=== PATIENT | female | born 1935 | race Caucasian/White ===

== ENCOUNTER 2020-08-05 13:31 | Inpatient (IN) ==
[2020-08-05] MEDS ORDERED: ONDANSETRON INJ 2 MG/ML 2 ML VIAL IV STA (13:55)
[2020-08-05] MEDS ORDERED: SODIUM CHLORIDE 0.9% 1000ML 1,000 ML IV ONE (13:55)
--- NOTE | 2020-08-05 14:08 | Emergency Department Note ---
Impression & Plan Abdominal pain, Leukocytosis, Liver mass, Acute hypokalemia ED Provider Note NAME: GAY PEÑA AGE: 85 SEX: F : 1935 ARRIVES VIA: Walk-In INFORMANT: Patient ED PROVIDER(S): Blanco Napoles DO CHIEF COMPLAINT: abdominal pain N/V/D HPI: Patient is an 85-year-old female who presents to the ER for abdominal pain in combination with nausea, vomiting and diarrhea. Symptoms started about a month ago. She gets abdominal cramping followed by diarrhea. She has been going anywhere from 3-7 times a day. She notes that recently over the past 24 hours diarrhea has picked back up. She has not been stool tested. She denies any recent antibiotics. She denies any chest pain or shortness of breath. No cough or runny nose. No loss of taste or smell. She admits to vomiting since last night. She is been vomiting clear liquids has she could not keep anything down. Denies any dysuria urgency or frequency. ROS: See above HPI for pertinent positives & negatives. A total of 10 systems reviewed and were otherwise negative. PAST MEDICAL HISTORY:See Below PAST SURGICAL HISTORY:See Below FAMILY HISTORY:See Below SOCIAL HISTORY:See Below HOME MEDICATIONS:See Below ALLERGIES:See Below VITALS:See Below PHYSICAL EXAMINATION: GENERAL: Sitting up in bed, alert, well appearing, well nourished, no distress, non-toxic EYE EXAM: normal conjunctiva. OROPHARYNX: no exudate, no erythema, lips, buccal mucosa, and tongue normal and mucous membranes are moist NECK: supple, no nuchal rigidity, no adenopathy, non-tender LUNGS: Clear to auscultation. Normal chest wall mechanics HEART: no murmurs, S1 normal and S2 normal ABDOMEN: abdomen soft, non-tender, normo-active bowel sounds, no masses, no rebound or guarding. UPPER EXTREMITIES: upper extremities are grossly normal. LOWER EXTREMITIES: No pitting edema. NEURO EXAM: Normal sensorium, cranial nerves II-XII grossly intact, normal speech, no gross weakness of arms, no gross weakness of legs. MEDICAL DECISION MAKING: Patient is an 85-year-old female who presents the ER for abdominal pain associated with diarrhea which been present for the month associate with nausea. IV was established blood was obtained. Labs showed leukocytosis 16,000. No significant anemia. BMP with mild hypokalemia. LFTs bilirubin was unremarkable. Lipase is unremarkable as well. UA was clean. C. difficile was negative. Covid pending. CT abdomen pelvis showed distended colon with liver masses and inflammation of the colon. Patient was given IV Cipro and Flagyl. Updated bedside. She is given IV fluids. IV Zofran discussed with hospitalist for further work-up. Triage Nursing notes reviewed. Limited review of prior medical records performed Vital Signs: reviewed and remarkable for HTN Differential diagnosis: Differential diagnoses includes but is not limited to gastritis, peptic ulcer disease, GERD, gallbladder disease, pancreatitis, small bowel obstruction, acute coronary syndrome, pericarditis, ischemic bowel, irritable bowel disease, irritable bowel syndrome, appendicitis, diverticulitis, malignancy, hernia, ur inary tract infection, torsion, /ectopic (if female), perforation, trauma, infectious. ER treatment provided: See below Diagnostics interpreted by me: Cardiac Monitoring: An order was placed for continuous cardiac monitoring. The monitor shows a rate of 70 with sinus rhythm. Laboratory studies: As stated above and show below. Imaging studies: See below Consultation(s): Discussed with Dr. Odell for further evaluation Procedures: none Critical Care: None Past Med/Surg History Medical History (Updated 08/05/20 @ 17:08 by Blanco Napoles DO) Glaucoma No pertinent past medical history Surgical History (Updated 03/20/19 @ 08:37 by Nel Wallace RN) S/P cholecystectomy Social History (Updated 03/20/19 @ 08:39 by Nel Wallace RN) Smoking Status: Never smoker Hx Alcohol Use: No Hx Substance Use: No Preferred Language: Tongan Communication Ability: Effective Visual Impairment: Limited Hearing Ability: Normal Beliefs That Will Affect Care: None marital status: Current Living Situation: Alone current occupational status: retired Feels Safe at Home: Yes Allergies Allergies Allergy/AdvReac Type Severity Reaction Status Date / Time amoxicillin Allergy Unknown Verified 08/05/20 15:07 brimonidine Allergy Unknown Verified 08/05/20 15:07 sulfamethizole Allergy Unknown Verified 08/05/20 15:07 Home Meds Home Medications Medication Instructions Recorded Confirmed bimatoprost [Lumigan] 1 drp OPR DAILY 03/14/19 08/05/20 difluprednate [Durezol] 1 drp OPR 3XWK 03/14/19 08/05/20 dorzolamide 1 drp OPL 3XWK 03/14/19 08/05/20 netarsudil [Rhopressa] 1 drp OPR PM 03/14/19 08/05/20 timolol maleate 1 drp OPR DAILY 03/14/19 08/05/20 cholecalciferol (vitamin D3) 50 mcg PO DAILY 08/05/20 08/05/20 [Vitamin D3] dextran 70-hypromellose 1 drp OPHTHALMIC (EYE) DIRECTED 08/05/20 08/05/20 [Artificial Tears (PF)] PRN Results & Data (ED) Vital Signs Vital Signs - 24 hr 08/05/20 13:34 08/05/20 14:19 08/05/20 14:30 Temperature 36.1 C L Temperature Source Temporal Artery Scan Pulse Rate 72 68 71 Pulse Rate from SpO2 Sensor 71 Pulse Rhythm Regular Regular Pulse Strength Normal Respiratory Rate 16 16 20 Respiratory Effort / Characteristics Non-Labored Respiratory Depth Normal Respiratory Pattern Regular Blood Pressure 182/90 H 162/70 H Blood Pressure Mean 120 100 Blood Pressure Position Sitting Pulse Oximetry 93 95 96 Oxygen Delivery Method Room Air Room Air Sepsis Recent Fever Within 48 Hours No Sepsis New/Unexplained Change in Mental Status N/A Sepsis Action Taken by Nursing No Action Required 08/05/20 15:00 08/05/20 16:00 08/05/20 16:30 Temperature Temperature Source Pulse Rate 75 69 72 Pulse Rate from SpO2 Sensor 75 69 71 Pulse Rhythm Pulse Strength Respiratory Rate 19 23 22 Respiratory Effort / Characteristics Respiratory Depth Respiratory Pattern Blood Pressure 154/70 H 168/79 H 146/79 H Blood Pressure Mean 98 108 101 Blood Pressure Position Pulse Oximetry 94 96 95 Oxygen Delivery Method Sepsis Recent Fever Within 48 Hours Sepsis New/Unexplained Change in Mental Status Sepsis Action Taken by Nursing 08/05/20 17:00 Temperature Temperature Source Pulse Rate 69 Pulse Rate from SpO2 Sensor 69 Pulse Rhythm Pulse Strength Respiratory Rate 19 Respiratory Effort / Characteristics Respiratory Depth Respiratory Pattern Blood Pressure 161/72 H Blood Pressure Mean 101 Blood Pressure Position Pulse Oximetry 95 Oxygen Delivery Method Sepsis Recent Fever Within 48 Hours Sepsis New/Unexplained Change in Mental Status Sepsis Action Taken by Nursing Laboratory Data Result diagrams: 08/05/20 14:00 08/05/20 14:00 Lab Results 02/16/21 02/16/21 02/16/21 Range/Units 14:00 14:00 14:00 WBC 16.17 H (4.8-10.8) K/uL RBC 4.47 (4.2-5.4) M/uL Hgb 14.2 (12.0-16.0) g/dL Hct 41.1 (37-47) % MCV 91.9 (80-100) fL MCH 31.8 (25-34) pg MCHC 34.5 (32-36) g/dL RDW Std Deviation 45.1 (36.4-46.3) fL RDW Coeff of Shane 13.4 (11.5-14.5) % Plt Count 524 H (130-400) K/uL MPV 9.1 (7.4-10.4) fL Immature Gran % (Auto) 0.2 % Neut % (Auto) 83.2 % Lymph % (Auto) 9.1 % Anderson % (Auto) 7.4 % Eos % (Auto) 0.0 % Baso % (Auto) 0.1 % Neut # (Auto) 13.45 H (1.4-6.5) K/uL Lymph # (Auto) 1.47 (1.2-3.4) K/uL Anderson # (Auto) 1.19 H (0.11-0.59) K/uL Eos # (Auto) 0.00 (0-0.5) K/uL Baso # (Auto) 0.02 (0-0.2) K/uL Immature Gran # (Auto) 0.04 H (0.00-0.02) K/uL Sodium 141 (136-145) mmol/L Potassium 3.1 L (3.5-5.1) mmol/L Chloride 105 (98-107) mmol/L Carbon Dioxide 24 (21-32) mmol/L Anion Gap 12.0 H (3-11) BUN 13 (7-18) mg/dl Creatinine 0.78 (0.6-1.2) mg/dl Est Cr Clr Drug Dosing 47.9 ml/min Est GFR ( Amer) 81.5 Est GFR (Non-Af Amer) 70.3 BUN/Creatinine Ratio 17.2 (10-20) Glucose 137 H (70-99) mg/dl Calcium 9.4 (8.5-10.1) mg/dl Total Bilirubin 0.6 (0.2-1) mg/dl AST 22 (15-37) U/L ALT 8 L (12-78) U/L Alkaline Phosphatase 140 H (45-117) U/L Total Protein 7.6 (6.4-8.2) gm/dl Albumin 3.2 L (3.4-5.0) gm/dl Globulin 4.4 H (2.5-4.0) gm/dl Albumin/Globulin Ratio 0.7 L (0.9-2) Lipase 63 L (73-393) U/L Urine Color Dark Yellow Urine Appearance Cloudy A (Clear) Urine pH 5.0 (4.5-7.5) Ur Specific Earp 1.027 (1.000-1.030) Urine Protein 1+ H (Negative) Urine Glucose (UA) Negative (Negative) Urine Ketones 1+ H (Negative) Urine Blood Negative (Negative) Urine Nitrite Negative (Negative) Urine Bilirubin 1+ H (Negative) Urine Urobilinogen Negative (Negative) Ur Leukocyte Esterase Negative (Negative) Urine WBC (Auto) 5-10 H (0-5) /hpf Urine RBC (Auto) 0-4 (0-4) /hpf U Hyaline Cast (Auto) 10-30 H (0-5) /lpf U Epithel Cells (Auto) >30 H (0-5) /lpf Urine Bacteria (Auto) Negative (Negative) Stl C. diff Tox B Gene (Neg) COVID-19 Eval Order 08/05/20 08/05/20 Range/Units 15:55 16:55 WBC (4.8-10.8) K/uL RBC (4.2-5.4) M/uL Hgb (12.0-16.0) g/dL Hct (37-47) % MCV (80-100) fL MCH (25-34) pg MCHC (32-36) g/dL RDW Std Deviation (36.4-46.3) fL RDW Coeff of Shane (11.5-14.5) % Plt Count (130-400) K/uL MPV (7.4-10.4) fL Immature Gran % (Auto) % Neut % (Auto) % Lymph % (Auto) % Anderson % (Auto) % Eos % (Auto) % Baso % (Auto) % Neut # (Auto) (1.4-6.5) K/uL Lymph # (Auto) (1.2-3.4) K/uL Anderson # (Auto) (0.11-0.59) K/uL Eos # (Auto) (0-0.5) K/uL Baso # (Auto) (0-0.2) K/uL Immature Gran # (Auto) (0.00-0.02) K/uL Sodium (136-145) mmol/L Potassium (3.5-5.1) mmol/L Chloride (98-107) mmol/L Carbon Dioxide (21-32) mmol/L Anion Gap (3-11) BUN (7-18) mg/dl Creatinine (0.6-1.2) mg/dl Est Cr Clr Drug Dosing ml/min Est GFR ( Amer) Est GFR (Non-Af Amer) BUN/Creatinine Ratio (10-20) Glucose (70-99) mg/dl Calcium (8.5-10.1) mg/dl Total Bilirubin (0.2-1) mg/dl AST (15-37) U/L ALT (12-78) U/L Alkaline Phosphatase (45-117) U/L Total Protein (6.4-8.2) gm/dl Albumin (3.4-5.0) gm/dl Globulin (2.5-4.0) gm/dl Albumin/Globulin Ratio (0.9-2) Lipase (73-393) U/L Urine Color Urine Appearance (Clear) Urine pH (4.5-7.5) Ur Specific Earp (1.000-1.030) Urine Protein (Negative) Urine Glucose (UA) (Negative) Urine Ketones (Negative) Urine Blood (Negative) Urine Nitrite (Negative) Urine Bilirubin (Negative) Urine Urobilinogen (Negative) Ur Leukocyte Esterase (Negative) Urine WBC (Auto) (0-5) /hpf Urine RBC (Auto) (0-4) /hpf U Hyaline Cast (Auto) (0-5) /lpf U Epithel Cells (Auto) (0-5) /lpf Urine Bacteria (Auto) (Negative) Stl C. diff Tox B Gene Negative Cdiff Gene (Neg) COVID-19 Eval [facility] Administered Medications Ciprofloxacin (Cipro / D5w) 400 mg in 200 mls @ 100 mls/hr IV NOW STA; Protocol Stop: 08/05/20 18:03 Last Admin: 08/05/20 16:18 Dose: 100 mls/hr Documented by: [id number] Discontinued Medications Sodium Chloride (Nss 1000ml) 1,000 mls @ 999 mls/hr IV .Q1H1M ONE Stop: 08/05/20 14:55 Last Infusion: 08/05/20 15:15 Dose: 0 mls/hr Documented by: [id number] Admin: 08/05/20 14:17 Dose: 999 mls/hr Documented by: [id number] Metronidazole (Flagyl) 500 mg in 100 mls @ 100 mls/hr IV NOW STA Stop: 08/05/20 17:03 Last Admin: 08/05/20 16:18 Dose: 100 mls/hr Documented by: [id number] Ioversol (Ioversol 100ml) 94 ml IV ONCE ONE Stop: 08/05/20 14:41 Last Admin: 08/05/20 14:44 Dose: 94 ml Documented by: [id number] Ondansetron HCl (Ondansetron Inj 2 Mg/Ml 2 Ml Vial) 4 mg IV NOW STA Stop: 08/05/20 13:56 Last Admin: 08/05/20 14:17 Dose: 4 mg Documented by: [id number] Discharge Plan Visit Data Chief Complaint: Diarrhea Stated Complaint: possible bowl obstruction ED Provider: Blanco Napoles Discharge Problem: Abdominal pain, Leukocytosis, Liver mass, Acute hypokalemia Forms Stand Alone Forms: My [facility] Prescriptions Prescriptions: No Action timolol maleate 0.5 % drops 1 drp OPR DAILY RF: 0 dorzolamide 2 % drops 1 drp OPL 3XWK RF: 0 Durezol 0.05 % drops 1 drp OPR 3XWK RF: 0 Lumigan 0.01 % drops 1 drp OPR DAILY RF: 0 Rhopressa 0.02 % Drops 1 drp OPR PM RF: 0 cholecalciferol (vitamin D3) [Vitamin D3] 50 mcg (2,000 unit) Capsule 50 mcg PO DAILY RF: 0 Artificial Tears (PF) Dropperette 1 drp OPHTHALMIC (EYE) DIRECTED PRN (Reason: Dry Eyes) RF: 0 Discharge Problem: Abdominal pain Qualifiers: Abdominal location: unspecified location Qualified Code(s): R10.9 - Unspecified abdominal pain Leukocytosis Qualifiers: Leukocytosis type: unspecified Qualified Code(s): D72.829 - Elevated white blood cell count, unspecified
[2020-08-05 14:13] LABS: Basophils # (auto) 0.02 K/uL (0-0.2); Basophils % (auto) 0.1 %; Hematocrit (blood only) 41.1 % (37-47); Hemoglobin 14.2 g/dL (12.0-16.0); Immature Granulocytes # (auto) 0.04 K/uL (0.00-0.02); Immature Granulocytes % (auto) 0.2 %; Lymphocytes # (auto) 1.47 K/uL (1.2-3.4); Lymphocytes % (auto) 9.1 %; Mean Corpuscular Hemoglobin 31.8 pg (25-34); Mean Corpuscular Hgb Conc 34.5 g/dL (32-36); Mean Corpuscular Volume 91.9 fL (80-100); Mean Platelet Volume 9.1 fL (7.4-10.4); Monocytes # (auto) 1.19 K/uL (0.11-0.59); Monocytes % (auto) 7.4 %; Neutrophils # (auto) 13.45 K/uL (1.4-6.5); Neutrophils % (auto) 83.2 %; Platelet Count 524 K/uL (130-400); RDW Coefficient of Variation 13.4 % (11.5-14.5); RDW Standard Deviation 45.1 fL (36.4-46.3); Red Blood Count 4.47 M/uL (4.2-5.4); White Blood Count 16.17 K/uL (4.8-10.8)
[2020-08-05 14:27] LABS: Appearance Urine Cloudy (Clear); Bacteria Urine Automated Negative (Negative); Blood Urine Negative (Negative); Color Urine Dark Yellow; Epithelial Cell Urine Auto >30 /lpf (0-5); Glucose Urine UA Negative (Negative); Ketones Urine 1+ (Negative); Leukocyte Esterase Urine Negative (Negative); Nitrite Urine Negative (Negative); Protein Urine 1+ (Negative); RBC Urine Automated 0-4 /hpf (0-4); Specific Gravity Urine 1.027 (1.000-1.030); Urobilinogen Urine Negative (Negative)
[2020-08-05 14:31] LABS: Albumin Level 3.2 gm/dl (3.4-5.0); BUN Creatinine Ratio 17.2 (10-20); Calcium 9.4 mg/dl (8.5-10.1); Creatinine Clr Calc Pharmacy 47.9 ml/min; Est GFR (African American) 81.5; Est GFR (Non-African American) 70.3; Potassium 3.1 mmol/L (3.5-5.1)
[2020-08-05 14:34] LABS: Albumin Globulin Ratio 0.7 (0.9-2); Bilirubin,Total 0.6 mg/dl (0.2-1); Globulin 4.4 gm/dl (2.5-4.0); Total Protein 7.6 gm/dl (6.4-8.2)
[2020-08-05] MEDS ORDERED: OPTIRAY 320 100ml IV ONE (14:40)
[2020-08-05 14:46] LABS: Bilirubin Urine 1+ (Negative)
--- NOTE | 2020-08-05 15:08 | CT Scan Report ---
CT abd pelvis IV con only CLINICAL HISTORY: abd pain COMPARISON STUDY: None. TECHNIQUE: The patient was scanned in a dynamic helical fashion during intravenous administration of 94 cc of Optiray 320. A dose lowering technique was utilized adhering to the principles of ALARA. CT DOSE: 382.38 mGy.cm FINDINGS: Lower chest: There is respiratory motion artifact. There are no pleural effusions. There is no basila r consolidation. There is a hiatal hernia Liver: There are greater than 10 space-occupying hepatic masses involving both the left and right hep atic lobes. The largest measures 33 mm. The findings are viewed as suspicious for hepatic metastasis. Gallbladder: Surgically absent Spleen: Not visualized and potentially surgically absent Pancreas: a an equivocal 1 cm hypodense lesion within the pancreatic tail likely represents partial v olume averaging. The study is degraded by motion artifact. Adrenal glands: There is a 12 mm left adrenal gland nodule Kidneys: There are no solid renal masses. There is no hydronephrosis. Bowel: There is colonic dilatation down to the level of the sigmoid colon. There is sigmoid wall thic kening. There is infiltration of the perisigmoid fat. There is a loss of fat plane between the sigmoi d colon and adjacent small bowel. Endoscopic correlation should be considered, particularly given the suspicion over hepatic metastasis. Peritoneum: There is trace free pelvic fluid. There is no free intraperitoneal air. Vasculature: The abdominal aorta is normal in course and caliber. Adenopathy: None. Pelvic viscera: There are bilateral adnexal cyst likely ovarian. There is a 4 cm cystic lesion on the right and 2.2 cm cystic lesion on the left. The endometrium appears thickened measuring 15 mm. Skeletal structures: There is old T8 compression fracture. No destructive skeletal lesions are visual ized IMPRESSION: 1. There are greater than 10 space-occupying hepatic masses, a finding viewed as highly suspicious fo r metastatic disease 2. Distended colon down to the level of the sigmoid. 3. Sigmoid diverticulosis and sigmoid wall thickening. 4. Loss of the normal fat plane between small bowel loops the sigmoid colon 5. Differential diagnostic considerations for the sigmoid colonic thickening include neoplasm versus diverticular related wall thickening. Endoscopic correlation is recommended in follow-up given the iglesias spicion of multiple hepatic metastasis 6. Bilateral cystic ovarian lesions 7. Thickened endometrium ACT 112: Positive. There are findings on this exam that require communication between the performing entity and the patient following Patient Test Result Information Act ([place] Act 112) guidelines. Electronically signed by: Rich Liu M.D. 08/05/2020 3:07 PM
[2020-08-05] MEDS ORDERED: metroNIDAZOLE 500 MG/100 ML BAG IV STA (16:04)
[2020-08-05] MEDS ORDERED: CIPROFLOXACIN / D5W 400 MG/200 ML BAG IV STA (16:04)
--- NOTE | 2020-08-05 16:37 | History & Physical Report ---
Date of Service August 05, 2020 Assessment & Plan (1) Abdominal pain: Suspected partial bowel obstruction N.p.o., IV fluids Findings concerning for metastatic colon cancer discussed with the patient and her daughter at bedside. CEA with a.m. labs. Continue ciprofloxacin and metronidazole for possible bacterial infection. Consult gastroenterology (2) Liver mass: Concerning for metastatic spread of colon cancer. (3) Thickened endometrium: Follow-up with gynecology as an outpatient. (4) Ovarian cyst, bilateral: Follow-up with gynecology as an outpatient. Ca1 to 5 added to a.m. labs. (5) Leukocytosis: Concerning for infective etiology as above. Continue ciprofloxacin and metronidazole. (6) Glaucoma: Continue her routine eyedrops. (7) DVT prophylaxis: SCDs pending GI review Admission and Anticipated Discharge Date Admission Date: August 05, 2020 History of Present Illness Chief Complaint: Abdominal pain Primary Care Provider: Maximo Madden Taylor Pettit is an 85 year old female who presents to the ER with abdominal pain, nausea, vomiting and diarrhea. Due to being very hard of hearing and without her hearing aids she asks that the majority of her history is taken from her daughter at bedside. She reports ongoing symptoms with diarrhea and intermittent mild abdominal pain for the last month. She has been reluctant to see any healthcare professionals however her daughter convinced her to see her PCP yesterday and arranged to have lab work done which was planned for tomorrow however her symptoms progressed last night to vomiting overnight with shaking episodes yesterday but no specific fevers. After telling her daughter about the vomiting today, her daughter called her PCP again and they recommended coming to the ER to rule out bowel obstruction. She denies any melena or bright red blood in stool. Diarrhea loose but not watery. No history of colonoscopy. In the ER CT A/P with IV contrast was concerning for distended colon down to her sigmoid with sigmoid wall thickening. In addition she has concerning findings for metastatic disease with 10 space-occupying liver masses. She denies ever having a screening colonoscopy. No family history of colon cancer. History of breast cancer with her sister. Due to elevated WBC and sigmoid wall thickening she was started on ciprofloxacin and metronidazole to cover for possible diverticulitis vs. translocation infection. She was referred to medicine for admission and ongoing management of partial colonic obstruction. Allergies Allergy/AdvReac Type Severity Reaction Status Date / Time amoxicillin Allergy Unknown Verified 08/05/20 15:07 brimonidine Allergy Unknown Verified 08/05/20 15:07 sulfamethizole Allergy Unknown Verified 08/05/20 15:07 Home Medications Medication Instructions Recorded Confirmed Type bimatoprost [Lumigan] 1 drp OPR DAILY 03/14/19 08/05/20 History difluprednate [Durezol] 1 drp OPR 3XWK 03/14/19 08/05/20 History dorzolamide 1 drp OPL 3XWK 03/14/19 08/05/20 History netarsudil [Rhopressa] 1 drp OPR PM 03/14/19 08/05/20 History timolol maleate 1 drp OPR DAILY 03/14/19 08/05/20 History cholecalciferol (vitamin D3) 50 mcg PO DAILY 08/05/20 08/05/20 History [Vitamin D3] dextran 70-hypromellose 1 drp OPHTHALMIC (EYE) DIRECTED 08/05/20 08/05/20 History [Artificial Tears (PF)] PRN Past Med/Surg History Medical History (Updated 08/06/20 @ 10:52 by Fausto Odell MD) Glaucoma No pertinent past medical history Surgical History (Updated 03/20/19 @ 08:37 by Nel Wallace RN) S/P cholecystectomy Social History (Updated 03/20/19 @ 08:39 by Nel Wallace RN) Smoking Status: Never smoker Hx Alcohol Use: No Hx Substance Use: No Preferred Language: Iraqi Communication Ability: Effective Visual Impairment: Limited Hearing Ability: Normal 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 Beliefs That Will Affect Care: None marital status: Current Living Situation: Family current occupational status: retired Other Information That Helps Us Care for You: No Feels Safe at Home: Yes Safety Concerns: Feels Safe At This Time Assistive Devices: Denture - Upper, Glasses and Hearing Aid - Bilateral Review of Systems Review of Systems: All systems reviewed & are unremarkable except as noted in HPI & below Constitutional: + chills and + fatigue Weight loss Physical Exam Constitutional: well developed, + thin and + frail appearing; no acute distress Eyes: + anicteric sclerae; normal pupil size ENMT: external ear and nose normal, oropharynx normal Neck: trachea midline Respiratory: normal respiratory effort, lungs clear to auscultation Cardiovascular: RRR, no murmur, no edema Gastrointestinal (Abdomen): Inspection/Auscultation: normal bowel sounds Percussion/Palpation: + abdomen tender (Mild RLQ) and abdomen soft; no guarding and abdomen not rigid Musculoskeletal: no cyanosis or clubbing, extremities motor strength 5/5 Skin: no rashes, warm and dry Neurologic: moves all extremities and awake; no focal motor deficits and not confused Psychiatric: A+Ox3, euthymic affect Results & Data Results & Data ([facility]) Vital Signs (Past 12 Hours) Vital Signs Temp Pulse Resp BP Pulse Ox 08/05/20 16:00 69 23 168/79 H 96 08/05/20 15:00 75 19 154/70 H 94 08/05/20 14:30 71 20 162/70 H 96 08/05/20 14:19 68 16 95 08/05/20 13:34 36.1 C L 72 16 182/[address] abd pelvis IV con only IMPRESSION: 1. There are greater than 10 space-occupying hepatic masses, a finding viewed as highly suspicious for metastatic disease 2. Distended colon down to the level of the sigmoid. 3. Sigmoid diverticulosis and sigmoid wall thickening. 4. Loss of the normal fat plane between small bowel loops the sigmoid colon 5. Differential diagnostic considerations for the sigmoid colonic thickening include neoplasm versus diverticular related wall thickening. Endoscopic correlation is recommended in follow-up given the suspicion of multiple hepatic metastasis 6. Bilateral cystic ovarian lesions 7. Thickened endometrium Medications Administered ER medications given: Metronidazole 500 mg IV Ciprofloxacin 400 mg IV NSS 1L bolus Ondansetron 4 mg IV Code Status & VTE Plan Code Status DNR/DNI as discussed with the patient and daughter at bedside VTE Prophylaxis Plan VTE Prophylaxis will be ordered: Yes PG Care Time/CCT Total # of Minutes Spent Total Time Spent with Patient: Total time spent is greater than 50% in coordination of care (as documented) at patient's floor/unit and/or counseling patient: Coding Level of Care Code 25970 Initial Inpt Care Lvl 3 Diagnoses Abdominal pain R10.9 Abdominal location: unspecified location Liver mass R16.0 Thickened endometrium R93.89 Ovarian cyst, bilateral N83.201; N83.202 Leukocytosis D72.829 Leukocytosis type: unspecified Glaucoma H40.9 DVT prophylaxis Z29.9 (1) Abdominal pain Abdominal location: unspecified location Qualified Code(s): R10.9 - Unspecified abdominal pain (2) Leukocytosis Leukocytosis type: unspecified Qualified Code(s): D72.829 - Elevated white blood cell count, unspecified
[2020-08-05] MEDS ORDERED: ARTIFICIAL TEARS OP PRN (19:17)
[2020-08-05] MEDS: POTASSIUM CHLORIDE 40 MEQ in D5W AND 1/2NSS 1,000 ML/1,000 ML BAG IV SCH (20:30)
[2020-08-06] MEDS: metroNIDAZOLE 500 MG/100 ML BAG IV SCH ×4 (00:30→23:09)
[2020-08-06] MEDS ORDERED: ONDANSETRON INJ 2 MG/ML 2 ML VIAL IV ONE (00:39)
[2020-08-06] MEDS: CIPROFLOXACIN / D5W 400 MG/200 ML BAG IV SCH ×2 (03:42→17:30)
[2020-08-06] MEDS: POTASSIUM CHLORIDE 40 MEQ in D5W AND 1/2NSS 1,000 ML/1,000 ML BAG IV SCH ×3 (05:27→17:30)
[2020-08-06 05:51] LABS: Basophils # (auto) 0.01 K/uL (0-0.2); Basophils % (auto) 0.1 %; Hematocrit (blood only) 40.5 % (37-47); Hemoglobin 13.9 g/dL (12.0-16.0); Immature Granulocytes # (auto) 0.06 K/uL (0.00-0.02); Immature Granulocytes % (auto) 0.4 %; Lymphocytes # (auto) 1.61 K/uL (1.2-3.4); Lymphocytes % (auto) 9.6 %; Mean Corpuscular Hgb Conc 34.3 g/dL (32-36); Mean Corpuscular Volume 93.3 fL (80-100); Mean Platelet Volume 9.2 fL (7.4-10.4); Monocytes # (auto) 1.42 K/uL (0.11-0.59); Monocytes % (auto) 8.5 %; Neutrophils # (auto) 13.66 K/uL (1.4-6.5); Neutrophils % (auto) 81.4 %; Platelet Count 561 K/uL (130-400); RDW Coefficient of Variation 13.6 % (11.5-14.5); RDW Standard Deviation 46.4 fL (36.4-46.3); Red Blood Count 4.34 M/uL (4.2-5.4); White Blood Count 16.76 K/uL (4.8-10.8)
[2020-08-06 06:34] LABS: BUN Creatinine Ratio 12.6 (10-20); Calcium 8.5 mg/dl (8.5-10.1); Est GFR (African American) 81.5; Est GFR (Non-African American) 70.3; Potassium 3.1 mmol/L (3.5-5.1)
[2020-08-06] MEDS: TIMOLOL MALEATE 0.5% OP SOLN 5 ML BTL OPR SCH (07:38)
[2020-08-06] MEDS ORDERED: DORZOLAMIDE HCL 2% OPH SOLN 10 ML BTL OPL SCH (09:00)
[2020-08-06] MEDS ORDERED: ONDANSETRON INJ 2 MG/ML 2 ML VIAL IV STA (10:00)
--- NOTE | 2020-08-06 10:11 | Gastrointestinal Consultation ---
Date of Consultation August 06, 2020 Assessment & Plan (1) Abdominal pain: Abd pain, distention, diarrhea and liver abnormalities are suspicious for colon cancer with liver mets. Will check stool for C-diff, GI path. Will order antiemetics: one time dose of zofran (per RN some concern in the ED regarding QT prolongation) - Compazine IV prn. Pt is not completely obstructed and is passing gas and BMs. Will try a gentle colon prep and arrange colonoscopy. Will plan colonoscopy for tomorrow dependent on ability to take prep and response to prep. Present on Admission?: Yes Supervising Physician Co-Signing Physician Notes I have seen and discussed the management with LINDA Edwards. She has no acute complaints when seen by myself this afternoon- still feeling a bit nauseous Abd soft not particular distended, bs present Labs with mild wbc Imaging reviewed Given reports of incomplete obstruction on imaging and passing - suspect she may be able to tolerate a gentle bowel prep with anti-nausea medication on board. Will hopefully plan for colonoscopy tomorrow - she seemed agreeable to this plan on discussion with her today. Should she not tolerate the bowel prep in the evening, please given one-two tap water enemas tonite and then again early tomorrow am around 5 am. History of Present Illness Reason for Consultation: Large bowel obstruction/mass Requesting Physician: Dr. Odell Attending Physician: Ari La History of Present Illness Ms. Taylor Pettit is an 85 yr old female pt of a Dr. Madden with a hx of abdominal surgeries: appendectomy and bladder lift at age 31; also cholecystectomy. Otherwise, she has an unremarkable PMH and has never undergone screening colonoscopy. She recalls diffuse abd pain, increased flatus and diarrhea begining around Jul 03. At that time pain was moderately severe for a day, with some distention but other family members were sick with a GI bug and she assumed she had the same issue. Since then, Abd pain has waxed and waned but hasn't been as severe. Diarrhea has continued - loose yellow/brown BMs a few times/day, most recently passing a BM this morning. She hasn't had any formed BMs since prior to the episode of pain on Jul 03. No blood in BMs. On Tuesday night, 08/03, she began with nausea/vomiting and hasn't been able to eat or drink much since that time. No hematemesis. No fevers/chills. On being told her weight on arrival yesterday in the ED, she realized that she has had a 15 lbs weight loss since symptoms began. CT on arrival with suggestion of sigmoid wall thickening, with upstream dilation. The pt is seen and examined while she is resting in bed. She is strong enough to ambulate to the bathroom with help. She is awake, alert, oriented, afebrile and mildly hypertensive. She is very nauseated. She had received two doses of zofran since arrival, though none since midnight. She is kept NPO. On exam abd is mildly/moderately distended, with more fullness on her right side and she is tender, but not exquistely and the abd is not taunt. She is agreeable to a colonoscopy and to trying to drink the prep but is concerned that she will be too nauseated to tolerate. Allergies Allergy/AdvReac Type Severity Reaction Status Date / Time amoxicillin Allergy Unknown Verified 08/05/20 15:07 brimonidine Allergy Unknown Verified 08/05/20 15:07 sulfamethizole Allergy Unknown Verified 08/05/20 15:07 Home Medications Medication Instructions Recorded Confirmed Type bimatoprost [Lumigan] 1 drp OPR DAILY 03/14/19 08/05/20 History difluprednate [Durezol] 1 drp OPR 3XWK 03/14/19 08/05/20 History dorzolamide 1 drp OPL 3XWK 03/14/19 08/05/20 History netarsudil [Rhopressa] 1 drp OPR PM 03/14/19 08/05/20 History timolol maleate 1 drp OPR DAILY 03/14/19 08/05/20 History cholecalciferol (vitamin D3) 50 mcg PO DAILY 08/05/20 08/05/20 History [Vitamin D3] dextran 70-hypromellose 1 drp OPHTHALMIC (EYE) DIRECTED 08/05/20 08/05/20 History [Artificial Tears (PF)] PRN Patient History Medical History (Updated 08/06/20 @ 10:52 by Fausto Odell MD) Glaucoma No pertinent past medical history Surgical History (Updated 03/20/19 @ 08:37 by Nel Wallace RN) S/P cholecystectomy Social History (Updated 03/20/19 @ 08:39 by Nel Wallace RN) Smoking Status: Never smoker Hx Alcohol Use: No Hx Substance Use: No Preferred Language: Japanese Communication Ability: Effective Visual Impairment: Limited Hearing Ability: Normal Mortgage Protection Specialist Required: No Beliefs That Will Affect Care: None marital status: Current Living Situation: Family current occupational status: retired Other Information That Helps Us Care for You: No Feels Safe at Home: Yes Safety Concerns: Feels Safe At This Time Assistive Devices: Denture - Upper, Glasses and Hearing Aid - Bilateral Review of Systems Review of Systems: ROS: Gen: + weakness x 2-3 days; 15 lbs weight loss; Denies fevers Eyes: No eye redness, or pain, no recent vision changes Resp: No SOB, no cough Cardio: No palpitations/irregular beats, no chest pain GI: See HPI, otherwise (-). : Denies pain on urination Skin: No jaundice, itching or new rashes or lesions M/S: Denies red, swollen joints Constitutional: +weakness, weight loss, denies fevers Physical Exam Constitutional: WD/WN, vitals as above average body habitus, well groomed and cooperative; no acute distress, not diaphoretic and not edematous Eyes: PERRL, conjunctivae normal, anicteric sclerae ENMT: external ear and nose normal, oropharynx normal Neck: trachea midline, no thyromegaly Respiratory: normal respiratory effort, lungs clear to auscultation Cardiovascular: RRR, no murmur, no edema Gastrointestinal (Abdomen): Inspection/Auscultation: + abdomen distended (mild/moderate, non taunt; BS are hypoactive) Percussion/Palpation: + abdomen tender (Right mid abdomen); no guarding, abdomen not rigid and no hepatomegaly Skin: no rashes, warm and dry Neurologic: PERRL, EOMI, accommodation nl, no face palsy, no dysarthria Psychiatric: A+Ox3, euthymic affect Lymphatic: no cervical or axillary lymphadenopathy Results & Data ([facility]) Vital Signs (Past 12 Hours) Vital Signs Temp Pulse Resp BP Pulse Ox 08/06/20 09:41 80 171/75 H 08/06/20 07:17 36.4 C L 64 16 141/74 H 94 08/05/20 22:47 36.7 C 72 16 124/71 95 Laboratory Results WBC 16, Hb 13, Hct 40, Plats 561, Na 141, K 3.1, BUN 10, Cr 0.78, glucose [address] abd/pelvis with IV contrast on 08/05/20: 1. There are greater than 10 space-occupying hepatic masses, a finding viewed as highly suspicious for metastatic disease 2. Distended colon down to the level of the sigmoid. 3. Sigmoid diverticulosis and sigmoid wall thickening. 4. Loss of the normal fat plane between small bowel loops the sigmoid colon 5. Differential diagnostic considerations for the sigmoid colonic thickening include neoplasm versus diverticular related wall thickening. Endoscopic correlation is recommended in follow-up given the suspicion of multiple hepatic metastasis 6. Bilateral cystic ovarian lesions 7. Thickened endometrium (1) Abdominal pain Abdominal location: unspecified location Qualified Code(s): R10.9 - Unspecified abdominal pain
[2020-08-06] MEDS ORDERED: LAVAGE SOLUTION 4000ML PO SCH (11:00)
[2020-08-06] MEDS: PROCHLORPERAZINE 5 MG in SYRINGE 4 ML IV PRN (13:21)
[2020-08-06 14:03] LABS: Influenza A virus by PCR Negative (Neg); Influenza B virus by PCR Negative (Neg); RSV by PCR Negative (Neg); SARS CoV2 RNA(COVID-19) InHosp NEGATIVE (Negative)
[2020-08-06] MEDS ORDERED: hydrOXYzine HCl 10 MG TAB PO ONE (22:30)
--- NOTE | 2020-08-06 22:34 | Hospitalist Progress Note ---
Date of Service August 06, 2020 Assessment & Plan (1) Abdominal pain: Suspected partial bowel obstruction N.p.o., IV fluids Findings concerning for metastatic colon cancer discussed with the patient and her daughter at bedside. CEA with a.m. labs. Continue ciprofloxacin and metronidazole for possible bacterial infection. Consult gastroenterology: plan for colonoscopy tomorrow. will need to prep again. (2) Liver mass: Concerning for metastatic spread of colon cancer. (3) Thickened endometrium: Follow-up with gynecology as an outpatient. (4) Ovarian cyst, bilateral: Follow-up with gynecology as an outpatient. Ca1 to 5 added to a.m. labs. (5) Leukocytosis: Concerning for infective etiology as above. Continue ciprofloxacin and metronidazole. (6) Glaucoma: Continue her routine eyedrops. (7) DVT prophylaxis: SCDs pending GI review Admission and Anticipated Discharge Date Admission Date: August 05, 2020 Subjective Patient has no new complaints today. Review of Systems Review of Systems: All systems reviewed & are unremarkable except as noted in HPI & below Physical Exam Physical Exam: Constitutional: well developed, + thin and + frail appearing; no acute distress Eyes: + anicteric sclerae; normal pupil size ENMT: external ear and nose normal, oropharynx normal Neck: trachea midline Respiratory: normal respiratory effort, lungs clear to auscultation Cardiovascular: RRR, no murmur, no edema Gastrointestinal (Abdomen): Inspection/Auscultation: normal bowel sounds Percussion/Palpation: + abdomen tender (Mild RLQ) and abdomen soft; no guarding and abdomen not rigid Musculoskeletal: no cyanosis or clubbing, extremities motor strength 5/5 Skin: no rashes, warm and dry Neurologic: moves all extremities and awake; no focal motor deficits and not confused Psychiatric: A+Ox3, euthymic affect Results & Data Results & Data ([facility]) Vital Signs (Past 12 Hours) Vital Signs Temp Pulse Resp BP Pulse Ox 08/06/20 16:10 36.7 C 66 18 162/80 H 93 PG Care Time/CCT Total # of Minutes Spent Total Time Spent with Patient: Total time spent is greater than 50% in coordination of care (as documented) at patient's floor/unit and/or counseling patient: Coding Level of Care Code 25529 Subseq Hosp Care Lvl 2 Diagnoses Abdominal pain R10.9 Abdominal location: unspecified location Liver mass R16.0 Thickened endometrium R93.89 Ovarian cyst, bilateral N83.201; N83.202 Leukocytosis D72.829 Leukocytosis type: unspecified Glaucoma H40.9 DVT prophylaxis Z29.9 Time Spent (min) 25 (1) Leukocytosis Leukocytosis type: unspecified Qualified Code(s): D72.829 - Elevated white blood cell count, unspecified (2) Abdominal pain Abdominal location: unspecified location Qualified Code(s): R10.9 - Unspeci fied abdominal pain
[2020-08-07] MEDS: POTASSIUM CHLORIDE 40 MEQ in D5W AND 1/2NSS 1,000 ML/1,000 ML BAG IV SCH ×3 (04:06→23:35)
[2020-08-07] MEDS: CIPROFLOXACIN / D5W 400 MG/200 ML BAG IV SCH ×2 (04:06→16:42)
--- NOTE | 2020-08-07 05:56 | Electrocardiogram Report ---
Test Reason : Blood Pressure : / mmHG Vent. Rate : 068 BPM Atrial Rate : 068 BPM P-R Int : 154 ms QRS Dur : 106 ms QT Int : 448 ms P-R-T Axes : 070 -23 -16 degrees QTc Int : 476 ms Normal sinus rhythm Abnormal ECG When compared with ECG of 06-AUG-2020 00:59, No significant change was found Confirmed by Lazaro Carmona ([id number]) on 08/07/2020 5:55:54 AM Referred By: REFERRED SELF Confirmed By:Lazaro Carmona
--- NOTE | 2020-08-07 06:13 | Electrocardiogram Report ---
Test Reason : Blood Pressure : / mmHG Vent. Rate : 060 BPM Atrial Rate : 060 BPM P-R Int : 154 ms QRS Dur : 102 ms QT Int : 480 ms P-R-T Axes : 067 -30 -27 degrees QTc Int : 480 ms Normal sinus rhythm Left axis deviation Prolonged QT Abnormal ECG When compared with ECG of 06-AUG-2020 01:00, No significant change was found Confirmed by Lazaro Carmona ([id number]) on 08/07/2020 6:12:51 AM Referred By: REFERRED SELF Confirmed By:Lazaro Carmona
[2020-08-07] MEDS: metroNIDAZOLE 500 MG/100 ML BAG IV SCH ×3 (07:59→23:35)
[2020-08-07] MEDS: TIMOLOL MALEATE 0.5% OP SOLN 5 ML BTL OPR SCH ×2 (08:00→11:47)
--- NOTE | 2020-08-07 08:11 | Anesthesiology Consultation ---
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 Lacy House MD Height/Weight Height: 5 ft 2 in Weight: 61.1 kg Allergies Allergy/AdvReac Type Severity Reaction Status Date / Time amoxicillin Allergy Unknown Verified 08/05/20 15:07 brimonidine Allergy Unknown Verified 08/05/20 15:07 sulfamethizole Allergy Unknown Verified 08/05/20 15:07 Medications Home Medications Medication Instructions Recorded Confirmed Last Taken bimatoprost [Lumigan] 1 drp OPR DAILY 03/14/19 08/05/20 08/05/20 difluprednate [Durezol] 1 drp OPR 3XWK 03/14/19 08/05/20 08/04/20 dorzolamide 1 drp OPL 3XWK 03/14/19 08/05/20 08/04/20 netarsudil [Rhopressa] 1 drp OPR PM 03/14/19 08/05/20 08/04/20 timolol maleate 1 drp OPR DAILY 03/14/19 08/05/20 08/05/20 cholecalciferol (vitamin D3) 50 mcg PO DAILY 08/05/20 08/05/20 08/05/20 [Vitamin D3] dextran 70-hypromellose 1 drp OPHTHALMIC (EYE) DIRECTED 08/05/20 08/05/20 Unknown [Artificial Tears (PF)] PRN Active Medications Generic Name Dose Route Start Last Admin Trade Name Freq PRN Reason Stop Dose Admin Dorzolamide HCl 1 drops 08/06/20 09:00 08/06/20 07:38 Dorzolamide Hcl 2% Oph Soln 10 Ml Btl OPL 09/05/20 08:59 1 drops [id number] TAYO Administration Potassium Chloride 40 meq/ 1,000 ml in 1,020 mls @ 125 mls/hr 08/05/20 17:30 08/07/20 04:06 Dextrose/Sodium Chloride IV 09/04/20 17:29 125 mls/hr .Q8H10M TAYO Administration Ciprofloxacin 400 mg in 200 mls @ 100 mls/hr 08/06/20 04:00 08/07/20 04:06 Cipro / D5w IV 08/16/20 03:59 100 mls/hr Q12H TAYO Administration Protocol Metronidazole 500 mg in 100 mls @ 100 mls/hr 08/06/20 00:00 08/07/20 07:59 Flagyl IV 08/16/20 00:00 100 mls/hr Q8H TAYO Administration Prochlorperazine 5 mg/ Syringe 5 mls @ 5 mls/min 08/06/20 09:51 08/06/20 13:21 IV 09/05/20 09:50 5 mls/min Q6 PRN Administration Nausea And Vomiting Miscellaneous 1 ea 08/06/20 08:00 08/06/20 23:55 Bimatoprost 0.01 % Drops: Order Awaiting Action N/A 09/05/20 07:59 Not Given QS TAYO Miscellaneous 1 ea 08/06/20 08:00 08/06/20 23:55 Difluprednate [Durezol] 0.05 % Drops: Order Awaiting Action N/A 09/05/20 07:59 Not Given QS TAYO Miscellaneous 1 ea 08/06/20 08:00 08/06/20 23:55 Netarsudil [Rhopressa] 0.02 % Drops: Order Awaiting Action N/A 09/05/20 07:59 Not Given QS TAYO Timolol Maleate 1 drops 08/06/20 09:00 08/07/20 08:00 Timolol Maleate 0.5% Op Soln 5 Ml Btl OPR 09/05/20 08:59 1 drops DAILY TAYO Administration Past Medical History Medical History Glaucoma No pertinent past medical history Past Surgical History Surgical History S/P cholecystectomy Social History Smoking Status: Never smoker Hx Alcohol Use: No Hx Substance Use: No Physical Exam Vital Signs Last Vital Signs Temp 98.6 F 08/06/20 22:47 Pulse 63 08/06/20 22:47 Resp 16 08/06/20 22:47 BP 147/78 H 08/06/20 22:47 Pulse Ox 93 08/06/20 22:47 Testing Laboratory Results 08/06/20 05:36 08/06/20 05:36 Urine Color Dark Yellow 08/05/20 14:00 Urine Appearance Cloudy (Clear) A 08/05/20 14:00 Urine pH 5.0 (4.5-7.5) 08/05/20 14:00 Ur Specific [place] 1.027 (1.000-1.030) 08/05/20 14:00 Urine Protein 1+ (Negative) H 08/05/20 14:00 Urine Glucose (UA) Negative (Negative) 08/05/20 14:00 Urine Ketones 1+ (Negative) H 08/05/20 14:00 Urine Nitrite Negative (Negative) 08/05/20 14:00 Ur Leukocyte Esterase Negative (Negative) 08/05/20 14:00 Urine WBC (Auto) 5-10 /hpf (0-5) H 08/05/20 14:00 Urine RBC (Auto) 0-4 /hpf (0-4) 08/05/20 14:00 U Hyaline Cast (Auto) 10-30 /lpf (0-5) H 08/05/20 14:00 U Epithel Cells (Auto) >30 /lpf (0-5) H 08/05/20 14:00 Urine Bacteria (Auto) Negative (Negative) 08/05/20 14:00 08/05/20 15:55 Escherichia coli Shiga Toxins Test - Preliminary Stool Stool Culture - Preliminary No Salmonella isolated to date, No Shigella isolated to date, No Campylobacter jejuni isolated to date. Electrocardiogram Date: 08/06/20 Normal sinus rhythm, rate 60 bpm Left axis deviation ST & T wave abnormality, consider anterolateral ischemia ST & T wave abnormality, consider inferior ischemia Prolonged QT Abnormal ECG When compared with ECG of 06-AUG-2020 01:00, No significant change was found Confirmed by Lazaro Carmona ([id number]) on 08/07/2020 6:12:51 AM
[2020-08-07] MEDS ORDERED: LIDOCAINE HCL 2% 2 ML VIAL/AMP(20MG/ML) INFIL ONE (08:19)
[2020-08-07] MEDS ORDERED: PROPOFOL IV EMULSION 10 MG/ML 20 ML VIAL IV ONE (08:19)
[2020-08-07] MEDS ORDERED: Nursing to Pharmacy Communication SCH (08:30)
--- NOTE | 2020-08-07 09:01 | History & Physical Report ---
Date of Service August 07, 2020 Assessment & Plan Admission and Anticipated Discharge Date Admission Date: August 05, 2020 History of Present Illness Chief Complaint: abnl ct Primary Care Provider: Maximo Madden 85 yo fm with a history of dilated CT on imaging concern for a ?sigmoid mass/stricture and proximal colon dilation. Allergies Allergy/AdvReac Type Severity Reaction Status Date / Time amoxicillin Allergy Unknown Verified 08/05/20 15:07 brimonidine Allergy Unknown Verified 08/05/20 15:07 sulfamethizole Allergy Unknown Verified 08/05/20 15:07 Home Medications Medication Instructions Recorded Confirmed Type bimatoprost [Lumigan] 1 drp OPR DAILY 03/14/19 08/05/20 History difluprednate [Durezol] 1 drp OPR 3XWK 03/14/19 08/05/20 History dorzolamide 1 drp OPL 3XWK 03/14/19 08/05/20 History netarsudil [Rhopressa] 1 drp OPR PM 03/14/19 08/05/20 History timolol maleate 1 drp OPR DAILY 03/14/19 08/05/20 History cholecalciferol (vitamin D3) 50 mcg PO DAILY 08/05/20 08/05/20 History [Vitamin D3] dextran 70-hypromellose 1 drp OPHTHALMIC (EYE) DIRECTED 08/05/20 08/05/20 History [Artificial Tears (PF)] PRN Past Med/Surg History Medical History Glaucoma No pertinent past medical history Surgical History S/P cholecystectomy Social History (Updated 03/20/19 @ 08:39 by Nel Wallace RN) Smoking Status: Never smoker Hx Alcohol Use: No Hx Substance Use: No Preferred Language: Turkmen Communication Ability: Effective Visual Impairment: Limited Hearing Ability: Normal Production Control Clerk Required: No Beliefs That Will Affect Care: None marital status: Current Living Situation: Family current occupational status: retired Other Information That Helps Us Care for You: No Feels Safe at Home: Yes Safety Concerns: Feels Safe At This Time Assistive Devices: Denture - Upper and Glasses Physical Exam Physical Exam: Thin fm in nad Eyes: PERRL, conjunctivae normal, anicteric sclerae Respiratory: normal respiratory effort, lungs clear to auscultation Cardiovascular: RRR, no murmur, no edema Gastrointestinal (Abdomen): Slight distension, not taut, faint bs Skin: no rashes, warm and dry Neurologic: PERRL, EOMI, accommodation nl, no face palsy, no dysarthria Results & Data ([facility]) Vital Signs (Past 12 Hours) Vital Signs Temp Pulse Resp BP BP Pulse Ox 08/07/20 08:36 37.1 C 65 18 179/81 H 95 08/07/20 08:10 36.6 C 67 16 178/79 H 93 08/06/20 22:47 37.0 C 63 16 147/78 H 93 Code Status & VTE Plan VTE Prophylaxis Plan VTE Prophylaxis will be ordered: Yes Supervising Physician Co-Signing Physician Notes Colonoscopy for evaluation of abnl ct.
--- NOTE | 2020-08-07 10:02 | Anesthesiology Progress Note ---
Date of Service August 07, 2020 Anesthesia Post Procedure Vital Signs Vital Signs: Temp Pulse Resp BP BP Pulse Ox 08/07/20 09:46 55 L 20 130/73 96 08/07/20 08:36 98.8 F 65 18 179/81 H 95 08/07/20 08:10 97.9 F 67 16 178/79 H 93 08/06/20 22:47 98.6 F 63 16 147/78 H 93 08/06/20 16:10 98.1 F 66 18 162/80 H 93 Transfer of Care Handoff Completed per policy Notes Mental Status: alert / awake / arousable and participated in evaluation Patient Amnestic to Procedure: Yes Nausea / Vomiting: adequately controlled Pain: adequately controlled Airway Patency, RR, SpO2: stable & adequate BP & HR: stable & adequate Hydration State: stable & adequate Anesthetic Complications: no major complications apparent and Pt Satisfied with anesthetic care
--- NOTE | 2020-08-07 10:03 | GI REPORT ---
Patient Name: Taylor Pettit Procedure Date: 08/07/2020 8:51 AM Date of : 1935 Admit Type: Inpatient Age: 85 Gender: Female Attending MD: Chika House M.d. Procedure: Colonoscopy Providers: Chika House M.d. Referring MD: Fausto Odell Md Indications: Abnormal CT of the GI tract (sigmoid narrrowing with proximal colon dilation) Medicines: Propofol per Anesthesia, Lidocaine Complications: No immediate complications. Estimated Blood Loss: Estimated blood loss: none. Procedure: Pre-Anesthesia Assessment: - Patient identification and proposed procedure were verified prior to the procedure by the physician, the nurse and the anesthesiologist. The procedure was verified in the pre-procedure area. - Prior to the procedure, a History and Physical was performed, and patient medications, allergies and sensitivities were reviewed. The patient's tolerance of previous anesthesia was reviewed. - The risks and benefits of the procedure and the sedation options and risks were discussed with the patient. All questions were answered and informed consent was obtained. - ASA Grade Assessment: IV - A patient with severe systemic disease that is a constant threat to life. After I obtained informed consent, the scope was passed under direct vision. Throughout the procedure, the patient's blood pressure, pulse, and oxygen saturations were monitored continuously. The Colonoscope was introduced through the anus and advanced to the sigmoid colon. The Endoscope was introduced through the anus with the intention of advancing to the cecum. The scope was advanced to the sigmoid colon before the procedure was aborted. Medications were given. The Colonoscope was introduced through the anus with the intention of advancing to the cecum. The scope was advanced to the sigmoid colon before the procedure was aborted. Medications were given. The colonoscopy was technically difficult and complex due to bowel stenosis and poor bowel prep. Successful completion of the procedure was aided by withdrawing the scope and replacing with the 'babyscope' and lavage. The patient tolerated the procedure fairly well. The quality of the bowel preparation was poor. 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 Therefore, the scope was downsized to a pediatric super slim colonoscope with continued inability to pass the scope. Further downsizing to a pediatric super slim endoscope was done with still an inability to pass the scope thru this area. Given the pediatric super slim colonoscope and endoscope did not have water attachments - water flushes were used x 5-6 attempts to open this area to further progress the scope proximally but this did not occur. The colonic tissue around this area appeared inflamed. The exam was otherwise without abnormality on direct and retroflexion views. Impression: - Preparation of the colon was poor. 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 - The examination was otherwise normal on direct and retroflexion views. Recommendation: - Return to the floor. - Consider surgical input. Chika House M.D. Chika House M.d. 08/07/2020 10:03:18 AM This report has been signed electronically. Note Initiated On: 08/07/2020 8:51 AM Number of Addenda: 0 I attest to the content of the Intraoperative Record and orders documented therein, exceptions below {[id number]}
[2020-08-07] MEDS: PROCHLORPERAZINE 5 MG in SYRINGE 4 ML IV PRN (11:04)
--- NOTE | 2020-08-07 11:09 | Surgery Consultation ---
Date of Consultation August 07, 2020 Assessment & Plan (1) Abdominal pain: This is an 85y F with a PMH of HTN, surgical history including appendectomy, cholecystectomy, bladder lift, and tubal ligation who presented to the [facility] ED on 08/05/20 with complaints of abdominal pain, nausea, vomiting, and diarrhea. Abdominal pain & diarrhea has been intermittent over the last month, with her nausea and vomiting developing this past Tuesday. She has never had a screening colonoscopy. Workup in the ER with a CT a/p has revealed that there are greater than 10 space-occupying hepatic masses, a finding viewed as highly suspicious for metastatic disease, a distended colon down to the level of the sigmoid with sigmoid wall thickening; differential including neoplasm vs diverticular wall thickening. GI was consulted and performed an colonoscopy today, however the bowel prep was poor. They found an area of stricture 18-20cm from the anus and were unable to traverse the scope past this point. They are planning on repeating colonoscopy tomorrow to obtain biopsies and possibly place a colonic stent. We agree with this current plan. We will continue to follow closely. Supervising Physician Co-Signing Physician Notes I personally saw and evaluated the patient with Brynn Greene PA-C and agree with the assessment and plan. 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 -CT images and results reviewed, has LBO down to level of sigmoid -Colonoscopy notes and images reviewed -Agree with repeat colonoscopy +/- stent placement and to evaluate the entire colon prior to resection -If able to stent colon, can advance diet as tolerated and would plan for elective colon resection -Should have repeat CT C/A/P with PO and IV contrast for complete staging -Will follow along History of Present Illness Attending Physician: Ari La History of Present Illness This is an 85y F with a PMH of HTN, surgical history including appendectomy, cholecystectomy, bladder lift, and tubal ligation who presented to the [facility] ED on 08/05/20 with complaints of abdominal pain, nausea, and vomiting. Patient reports her abdominal pain started about 1 month ago. She states it is generalized pain throughout the abdomen that has been intermittent. Around this time she noticed her stools were becoming more loose. She denies visualizing any blood in the stool. Starting Tuesday she developed nausea and vomiting and could not keep anything down. Her daughter and PCP prompted her to come into the ER for further evaluation. In the ER a CT a/p was performed that revealed that there are greater than 10 space-occupying hepatic masses, a finding viewed as h ighly suspicious for metastatic disease, a distended colon down to the level of the sigmoid with sigmoid wall thickening; differential including neoplasm vs diverticular wall thickening. Patient reports over the past month her diet has been "lousy". She states she usually is 150lbs, but is about 134lbs at the time. She never had a colonoscopy in the past. Allergies Allergy/AdvReac Type Severity Reaction Status Date / Time amoxicillin Allergy Unknown Verified 08/05/20 15:07 brimonidine Allergy Unknown Verified 08/05/20 15:07 sulfamethizole Allergy Unknown Verified 08/05/20 15:07 Home Medications Medication Instructions Recorded Confirmed Type bimatoprost [Lumigan] 1 drp OPR DAILY 03/14/19 08/05/20 History difluprednate [Durezol] 1 drp OPR 3XWK 03/14/19 08/05/20 History dorzolamide 1 drp OPL 3XWK 03/14/19 08/05/20 History netarsudil [Rhopressa] 1 drp OPR PM 03/14/19 08/05/20 History timolol maleate 1 drp OPR DAILY 03/14/19 08/05/20 History cholecalciferol (vitamin D3) 50 mcg PO DAILY 08/05/20 08/05/20 History [Vitamin D3] dextran 70-hypromellose 1 drp OPHTHALMIC (EYE) DIRECTED 08/05/20 08/05/20 History [Artificial Tears (PF)] PRN Patient History Medical History Glaucoma No pertinent past medical history Surgical History S/P cholecystectomy Social History Smoking Status: Never smoker Hx Alcohol Use: No Hx Substance Use: No Preferred Language: French Communication Ability: Effective Visual Impairment: Limited Hearing Ability: Normal Computational Scientist Required: No Beliefs That Will Affect Care: None marital status: Current Living Situation: Family current occupational status: retired Other Information That Helps Us Care for You: No Feels Safe at Home: Yes Safety Concerns: Feels Safe At This Time Assistive Devices: Denture - Upper and Glasses Review of Systems Constitutional: no fever and no chills Respiratory: no dyspnea Cardiovascular: no chest pain Gastrointestinal: + abdominal pain (generalized abdominal pain), + bloating, + nausea, + vomiting and + diarrhea/loose stools; no blood in stools Physical Exam Physical Exam: awake; hard of hearing Constitutional: no acute distress Respiratory: normal respiratory effort Gastrointestinal (Abdomen): Inspection/Auscultation: + abdomen distended Percussion/Palpation: + abdomen tender (ttp in R mid/lower abdomen) and abdomen soft Results & Data ([place]) Vital Signs (Past 12 Hours) Vital Signs Temp Pulse Resp BP BP Pulse Ox 08/07/20 10:30 36.3 C L 60 16 161/76 H 94 08/07/20 10:15 63 18 177/82 H 94 08/07/20 10:00 56 L 18 157/61 H 94 08/07/20 09:46 55 L 20 130/73 96 08/07/20 08:36 37.1 C 65 18 179/81 H 95 08/07/20 08:10 36.6 C 67 16 178/[address] abd pelvis IV con only CLINICAL HISTORY: abd pain COMPARISON STUDY: None. TECHNIQUE: The patient was scanned in a dynamic helical fashion during intravenous administration of 94 cc of Optiray 320. A dose lowering technique was utilized adhering to the principles of ALARA. CT DOSE: 382.38 mGy.cm FINDINGS: Lower chest: There is respiratory motion artifact. There are no pleural effusions. There is no basilar consolidation. There is a hiatal hernia Liver: There are greater than 10 space-occupying hepatic masses involving both the left and right hepatic lobes. The largest measures 33 mm. The findings are viewed as suspicious for hepatic metastasis. Gallbladder: Surgically absent Spleen: Not visualized and potentially surgically absent Pancreas: a an equivocal 1 cm hypodense lesion within the pancreatic tail likely represents partial volume averaging. The study is degraded by motion artifact. Adrenal glands: There is a 12 mm left adrenal gland nodule Kidneys: There are no solid renal masses. There is no hydronephrosis. Bowel: There is colonic dilatation down to the level of the sigmoid colon. There is sigmoid wall thickening. There is infiltration of the perisigmoid fat. There is a loss of fat plane between the sigmoid colon and adjacent small bowel. Endoscopic correlation should be considered, particularly given the suspicion over hepatic metastasis. Peritoneum: There is trace free pelvic fluid. There is no free intraperitoneal air. Vasculature: The abdominal aorta is normal in course and caliber. Adenopathy: None. Pelvic viscera: There are bilateral adnexal cyst likely ovarian. There is a 4 cm cystic lesion on the right and 2.2 cm cystic lesion on the left. The endometrium appears thickened measuring 15 mm. Skeletal structures: There is old T8 compression fracture. No destructive skeletal lesions are visualized IMPRESSION: 1. There are greater than 10 space-occupying hepatic masses, a finding viewed as highly suspicious for metastatic disease 2. Distended colon down to the level of the sigmoid. 3. Sigmoid diverticulosis and sigmoid wall thickening. 4. Loss of the normal fat plane between small bowel loops the sigmoid colon 5. Differential diagnostic considerations for the sigmoid colonic thickening include neoplasm versus diverticular related wall thickening. Endoscopic cor relation is recommended in follow-up given the suspicion of multiple hepatic metastasis 6. Bilateral cystic ovarian lesions 7. Thickened endometrium ACT 112: Positive. There are findings on this exam that require communication between the performing entity and the patient following Patient Test Result Information Act ([place] Act 112) guidelines Electronically signed by: Rich Liu M.D. 08/05/2020 3:07 PM Procedure: Colonoscopy Providers: Chika House M.d. Referring MD: Fausto Odell Md Indications: Abnormal CT of the GI tract (sigmoid narrrowing with proximal colon dilation) Medicines: Propofol per Anesthesia, Lidocaine Complications: No immediate complications. Estimated Blood Loss: Estimated blood loss: none. Procedure: Pre-Anesthesia Assessment: - Patient identification and proposed procedure were verified prior to the procedure by the physician, the nurse and the anesthesiologist. The procedure was verified in the pre-procedure area. - Prior to the procedure, a History and Physical was performed, and patient medications, allergies and sensitivities were reviewed. The patient's tolerance of previous anesthesia was reviewed. - The risks and benefits of the procedure and the sedation options and risks were discussed with the patient. All questions were answered and informed consent was obtained. - ASA Grade Assessment: IV - A patient with severe systemic disease that is a constant threat to life. After I obtained informed consent, the scope was passed under direct vision. Throughout the procedure, the patient's blood pressure, pulse, and oxygen saturations were monitored continuously. The Colonoscope was introduced through the anus and advanced to the sigmoid colon. The Endoscope was introduced through the anus with the intention of advancing to the cecum. The scope was advanced to the sigmoid colon before the procedure was aborted. Medications were given. The Colonoscope was introduced through the anus with the intention of advancing to the cecum. The scope was advanced to the sigmoid colon before the procedure was aborted. Medications were given. The colonoscopy was technically difficult and complex due to bowel stenosis and poor bowel prep. Successful completion of the procedure was aided by withdrawing the scope and replacing with the 'babyscope' and lavage. The patient tolerated the procedure fairly well. The quality of the bowel preparation was poor. Findings: An intrinsic severe stenosis was found -59 cm proximal to the anus that could not be traversed with a pediatric colonoscope. Therefore, the scope was downsized to a pediatric super slim colonoscope with continued inability to pass the scope. Further downsizing to a pediatric super slim endoscope was done with still an inability to pass the scope thru this area. Given the pediatric super slim colonoscope and endoscope did not have water attachments - water flushes were used x 5-6 attempts to open this area to further progress the scope proximally but this did not occur. The colonic tissue around this area appeared inflamed. The exam was otherwise without abnormality on direct and retroflexion views. Impression: - Preparation of the colon was poor. 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 - The examination was otherwise normal on direct and retroflexion views. Recommendation: - Return to the floor. - Consider surgical input. Emily Patel M.d. 08/07/2020 10:03:18 AM PG Care Time/CCT Total # of Minutes Spent Total Time Spent with Patient: Total time spent is greater than 50% in coordination of care (as documented) at patient's floor/unit and/or counseling patient: Coding Level of Care Code 79032 Initial Inpt Care Lvl 2 Diagnoses Abdominal pain R10.9 Abdominal location: unspecified location (1) Abdominal pain Abdominal location: unspecified location Qualified Code(s): R10.9 - Unspecified abdominal pain
[2020-08-07] MEDS: DORZOLAMIDE HCL 2% OPH SOLN 10 ML BTL OPL SCH ×3 (11:47→20:30)
[2020-08-07] MEDS: TIMOLOL MALEATE 0.5% OP SOLN 5 ML BTL OPL SCH (12:04)
--- NOTE | 2020-08-07 15:38 | Anesthesiology Consultation ---
Date of Service August 07, 2020 Assessment & Plan (1) Encounter for pre-operative examination: Chart Review Chart Review: Acceptable Risk for Surgery History Surgery Operation Date: 08/07/20 16:00 Proposed Procedures p Colonoscopy Dr. Lacy House MD Operation Date: 08/08/20 10:15 Proposed Procedures p Colonoscopy, Possible Stent - Gini Badillo DO Height/Weight Height: 5 ft 2 in Weight: 61.1 kg Allergies Allergy/AdvReac Type Severity Reaction Status Date / Time amoxicillin Allergy Unknown Verified 08/05/20 15:07 brimonidine Allergy Unknown Verified 08/05/20 15:07 sulfamethizole Allergy Unknown Verified 08/05/20 15:07 Medications Home Medications Medication Instructions Recorded Confirmed Last Taken bimatoprost [Lumigan] 1 drp OPR DAILY 03/14/19 08/05/20 08/05/20 difluprednate [Durezol] 1 drp OPR 3XWK 03/14/19 08/05/20 08/04/20 dorzolamide 1 drp OPL 3XWK 03/14/19 08/05/20 08/04/20 netarsudil [Rhopressa] 1 drp OPR PM 03/14/19 08/05/20 08/04/20 timolol maleate 1 drp OPR DAILY 03/14/19 08/05/20 08/05/20 cholecalciferol (vitamin D3) 50 mcg PO DAILY 08/05/20 08/05/20 08/05/20 [Vitamin D3] dextran 70-hypromellose 1 drp OPHTHALMIC (EYE) DIRECTED 08/05/20 08/05/20 Unknown [Artificial Tears (PF)] PRN Active Medications Generic Name Dose Route Start Last Admin Trade Name Freq PRN Reason Stop Dose Admin Dorzolamide HCl 1 drops 08/07/20 09:00 08/07/20 13:48 Dorzolamide Hcl 2% Oph Soln 10 Ml Btl OPL 09/06/20 08:59 Not Given TID TAYO Potassium Chloride 40 meq/ 1,000 ml in 1,020 mls @ 125 mls/hr 08/05/20 17:30 08/07/20 10:40 Dextrose/Sodium Chloride IV 09/04/20 17:29 125 mls/hr .Q8H10M TAYO Administration Ciprofloxacin 400 mg in 200 mls @ 100 mls/hr 08/06/20 04:00 08/07/20 06:06 Cipro / D5w IV 08/16/20 03:59 Infused Q12H TAYO Infusion Protocol Metronidazole 500 mg in 100 mls @ 100 mls/hr 08/06/20 00:00 08/07/20 15:00 Flagyl IV 08/16/20 00:00 100 mls/hr Q8H TAYO Administration Prochlorperazine 5 mg/ Syringe 5 mls @ 5 mls/min 08/06/20 09:51 08/07/20 11:04 IV 09/05/20 09:50 5 mls/min Q6 PRN Administration Nausea And Vomiting Timolol Maleate 1 drops 08/07/20 09:00 08/07/20 12:04 Timolol Maleate 0.5% Op Soln 5 Ml Btl OPL 09/06/20 08:59 1 drops DAILY TAYO Administration NPO Date Last Intake of Fluids: 08/06/20 Time Last Intake of Fluids: 23:00 Date Last Intake of Solids: 08/05/20 Time Last Intake of Solids: 18:00 Past Medical History Medical History Glaucoma No pertinent past medical history Past Surgical History Surgical History (Updated 08/07/20 @ 15:36 by Antonio Sánchez MD) Hx of colonoscopy S/P cholecystectomy Social History Smoking Status: Never smoker Hx Alcohol Use: No Hx Substance Use: No Physical Exam Vital Signs Last Vital Signs Temp 36.4 C L 08/07/20 11:30 Pulse 63 08/07/20 11:30 Resp 16 08/07/20 11:30 BP 160/75 H 08/07/20 11:30 Pulse Ox 92 08/07/20 11:30 Testing Laboratory Results 08/06/20 05:36 08/06/20 05:36 Urine Color Dark Yellow 08/05/20 14:00 Urine Appearance Cloudy (Clear) A 08/05/20 14:00 Urine pH 5.0 (4.5-7.5) 08/05/20 14:00 Ur Specific [place] 1.027 (1.000-1.030) 08/05/20 14:00 Urine Protein 1+ (Negative) H 08/05/20 14:00 Urine Glucose (UA) Negative (Negative) 08/05/20 14:00 Urine Ketones 1+ (Negative) H 08/05/20 14:00 Urine Nitrite Negative (Negative) 08/05/20 14:00 Ur Leukocyte Esterase Negative (Negative) 08/05/20 14:00 Urine WBC (Auto) 5-10 /hpf (0-5) H 08/05/20 14:00 Urine RBC (Auto) 0-4 /hpf (0-4) 08/05/20 14:00 U Hyaline Cast (Auto) 10-30 /lpf (0-5) H 08/05/20 14:00 U Epithel Cells (Auto) >30 /lpf (0-5) H 08/05/20 14:00 Urine Bacteria (Auto) Negative (Negative) 08/05/20 14:00 08/05/20 15:55 Escherichia coli Shiga Toxins Test - Preliminary Stool Stool Culture - Preliminary No Salmonella isolated to date, No Shigella isolated to date, No Campylobacter jejuni isolated to date. Electrocardiogram Date: 08/06/20 Findings: + NSR @ (60) and + NSST changes prolonged QT
[2020-08-07] MEDS: NETARSUDIL 0.02% OPL SCH (18:16)
[2020-08-07] MEDS: BIMATOPROST 0.01% OPL SCH (20:30)
--- NOTE | 2020-08-07 21:18 | Hospitalist Progress Note ---
Date of Service August 07, 2020 Assessment & Plan (1) Abdominal pain: Suspected partial bowel obstruction N.p.o., IV fluids Findings concerning for metastatic colon cancer discussed with the patient and her daughter at bedside. CEA with a.m. labs. Continue ciprofloxacin and metronidazole for possible bacterial infection. Consult gastroenterology: plan for colonoscopy tomorrow. Unable to place stent due to stricture near anus. will retry tomorrow. Updated family. (2) Liver mass: Concerning for metastatic spread of colon cancer. (3) Thickened endometrium: Follow-up with gynecology as an outpatient. (4) Ovarian cyst, bilateral: Follow-up with gynecology as an outpatient. Ca1 to 5 added to a.m. labs. (5) Leukocytosis: Concerning for infective etiology as above. Continue ciprofloxacin and metronidazole. (6) Glaucoma: Continue her routine eyedrops. (7) DVT prophylaxis: SCDs pending GI review Admission and Anticipated Discharge Date Admission Date: August 05, 2020 Subjective 85 yo female reports no new symptoms. Review of Systems Review of Systems: All systems reviewed & are unremarkable except as noted in HPI & below Physical Exam Physical Exam: Constitutional: well developed, + thin and + frail appearing; no acute distress Eyes: + anicteric sclerae; normal pupil size ENMT: external ear and nose normal, oropharynx normal Neck: trachea midline Respiratory: normal respiratory effort, lungs clear to auscultation Cardiovascular: RRR, no murmur, no edema Gastrointestinal (Abdomen): Inspection/Auscultation: normal bowel sounds Percussion/Palpation: + abdomen tender (Mild RLQ) and abdomen soft; no guarding and abdomen not rigid Musculoskeletal: no cyanosis or clubbing, extremities motor strength 5/5 Skin: no rashes, warm and dry Neurologic: moves all extremities and awake; no focal motor deficits and not confused Psychiatric: A+Ox3, euthymic affect Results & Data Results & Data ([facility]) Vital Signs (Past 12 Hours) Vital Signs Temp Pulse Pulse Resp BP BP Pulse Ox 08/07/20 16:30 36.7 C 65 18 172/80 H 93 08/07/20 15:37 36.4 C L 64 16 169/82 H 92 08/07/20 11:30 36.4 C L 63 16 160/75 H 92 08/07/20 11:00 36.2 C L 62 16 176/77 H 95 08/07/20 10:30 36.3 C L 60 16 161/76 H 94 08/07/20 10:15 63 18 177/82 H 94 08/07/20 10:00 56 L 18 157/61 H 94 08/07/20 09:46 55 L 20 130/73 96 PG Care Time/CCT Total # of Minutes Spent Total Time Spent with Patient: Total time spent is greater than 50% in coordination of care (as documented) at patient's floor/unit and/or counseling patient: Coding Level of Care Code 67585 Subseq Hosp Care Lvl 3 Diagnoses Abdominal pain R10.9 Abdominal location: unspecified location Liver mass R16.0 Thickened endometrium R93.89 Ovarian cyst, bilateral N83.201; N83.202 Leukocytosis D72.829 Leukocytosis type: unspecified Glaucoma H40.9 DVT prophylaxis Z29.9 Time Spent (min) 35 (1) Leukocytosis Leukocytosis type: unspecified Qualified Code(s): D72.829 - Elevated white blood cell count, unspecified (2) Abdominal pain Abdominal location: unspecified location Qualified Code(s): R10.9 - Unspecified abdominal pain
[2020-08-08] MEDS: PROCHLORPERAZINE 5 MG in SYRINGE 4 ML IV PRN (01:47)
[2020-08-08] MEDS: CIPROFLOXACIN / D5W 400 MG/200 ML BAG IV SCH ×2 (04:46→15:32)
[2020-08-08] MEDS: TIMOLOL MALEATE 0.5% OP SOLN 5 ML BTL OPL SCH (07:57)
[2020-08-08] MEDS: metroNIDAZOLE 500 MG/100 ML BAG IV SCH ×2 (07:57→15:32)
[2020-08-08] MEDS: DORZOLAMIDE HCL 2% OPH SOLN 10 ML BTL OPL SCH ×3 (07:57→21:39)
[2020-08-08] MEDS: DIFLUPREDNATE 0.05% OPR SCH (07:57)
[2020-08-08] MEDS ORDERED: TIMOLOL MALEATE 0.5% OP SOLN 5 ML BTL OPL SCH (09:00)
--- NOTE | 2020-08-08 09:33 | Gastroenterology Progress Note ---
Date of Service August 08, 2020 Assessment & Plan (1) Abdominal pain: Colonoscopy attempt yesterday suggestive of a diverticular stricture. Will repeat attempt this morning in the OR by Dr. Badillo, possibly with stent insertion. Appreciate surgical input will likely need eventual sigmoid resection. Further recommendation to follow colonoscopy. Present on Admission?: Yes Admission and Anticipated Discharge Date Admission Date: August 05, 2020 Supervising Physician Co-Signing Physician Notes I saw and evaluated the patient. Colonoscopy reattempt has been requested by my partner for a suspected obstruction. Her imaging study is quite concerning as she has upstream dilation of the colon in addition to what appears to be numerous masses within the liver. I have talked to the patient about the risks of a repeat colonoscopy to include bleeding perforation infection and ability to pass a wire or colonic stent. Pending the results of today's exam the patient may benefit from endoscopic ultrasound with biopsy of the liver masses. Plan Colonoscopy with attempted placement of a colonic stent for colonic decompression Subjective Ms. Taylor Fitzgerald an 85 yr old female admitted on 08/[address] with question sigmoid mass vs. stricture; dilation proximal to this. No nausea/vomiting this morning. Abd slightly less distended and per pt, more comfortable. Received enemas x 2 this morning. NPO. Review of Systems Review of Systems: ROS: Gen: + weakness x 2-3 days prior to admission; 15 lbs weight loss; Denies fevers Eyes: No eye redness, or pain, no recent vision changes Resp: No SOB, no cough Cardio: No palpitations/irregular beats, no chest pain GI: See HPI, otherwise (-). : Denies pain on urination Skin: No jaundice, itching or new rashes or lesions M/S: Denies red, swollen joints Physical Exam Constitutional: WD/WN, vitals as above average body habitus, well groomed and cooperative; no acute distress, not diaphoretic and not edematous Eyes: PERRL, conjunctivae normal, anicteric sclerae ENMT: external ear and nose normal, oropharynx normal Neck: trachea midline, no thyromegaly Respiratory: normal respiratory effort, lungs clear to auscultation Cardiovascular: RRR, no murmur, no edema Gastrointestinal (Abdomen): Inspection/Auscultation: + abdomen distended (mildly) and normal bowel sounds (active, throughout) Percussion/Palpation: + abdomen tender (Right mid and lower abdomen); no guarding, abdomen not rigid and no hepatomegaly Skin: no rashes, warm and dry Neurologic: PERRL, EOMI, accommodation nl, no face palsy, no dysarthria Psychiatric: A+Ox3, euthymic affect Lymphatic: no cervical or axillary lymphadenopathy Results & Data ([facility]) Vital Signs (Past 12 Hours) Vital Signs Temp Pulse Resp BP Pulse Ox 08/08/20 07:40 36.8 C 75 18 151/80 H 93 08/07/20 23:16 37.0 C 70 17 172/77 H 94 Laboratory Results WBC 16, Hb 13, HCt 40, Platlets 561, Na 141, K 3.1, Cl 111, CO2 25, BUN 10, Cr 0.78, glucose [address] abd/pelvis with IV contrast 08/05/20 : 1. There are greater than 10 space- occupying hepatic masses, a finding viewed as highly suspicious for metastatic disease 2. Distended colon down to the level of the sigmoid. 3. Sigmoid diverticulosis and sigmoid wall thickening. 4. Loss of the normal fat plane between small bowel loops the sigmoid colon 5. Differential diagnostic considerations for the sigmoid colonic thickening include neoplasm versus diverticular related wall thickening. Endoscopic correlation is recommended in follow-up given the suspicion of multiple hepatic metastasis 6. Bilateral cystic ovarian lesions 7. Thickened endometrium (1) Abdominal pain Abdominal location: unspecified location Qualified Code(s): R10.9 - Unspecified abdominal pain
[2020-08-08] MEDS ORDERED: ONDANSETRON INJ 2 MG/ML 2 ML VIAL ONE (09:53)
[2020-08-08] MEDS ORDERED: LIDOCAINE HCL 2% 2 ML VIAL/AMP(20MG/ML) INFIL ONE (09:53)
[2020-08-08] MEDS ORDERED: NEOSTIGMINE METHYLSULFATE 5 MG/5 ML SYR ONE (09:53)
[2020-08-08] MEDS ORDERED: PROPOFOL IV EMULSION 10 MG/ML 20 ML VIAL IV ONE (09:53)
[2020-08-08] MEDS ORDERED: fentaNYL citrate 100 MCG/2 ML VIAL ONE (09:54)
[2020-08-08] MEDS ORDERED: ROCURONIUM BROMIDE 10 MG/ML 5 ML VIAL IV ONE (09:54)
[2020-08-08] MEDS ORDERED: SUCCINYLCHOLINE CHLORIDE 20 MG/ML 10 ML VIAL IV ONE (09:54)
[2020-08-08 10:06] LABS: INR 1.3 (0.9-1.1)
[2020-08-08] MEDS ORDERED: ePHEDrine sulfate 50 MG/ML AMP IV PRN (10:26)
[2020-08-08] MEDS ORDERED: ATROPINE SULFATE 0.1 MG/ML 10ML SYR IV PRN (10:26)
--- NOTE | 2020-08-08 12:32 | Post Operative Brief Note ---
Immediate Post Op Note v1 Date of Surgery August 08, 2020 Pre & Post Diagnosis Operation Date: 08/07/20 16:00 Pre-Op Diagnosis: LARGE BOWEL OBSTRUCTION/MASS Post-Op Diagnosis: stricture Operation Date: 08/08/20 10:15 Pre-Op Diagnosis: colonic obstruction Post-Op Diagnosis: colonic mass I identified the patient and participated in the time-out.: Yes Procedure Operation Date: 08/07/20 16:00 Actual Procedures p Colonoscopy - Chika House MD Operation Date: 08/08/20 10:15 Actual Procedures p Colonoscopy, colonic Stent placement, and biopsies(Not Applicable) - Gini Badillo DO Surgeon Gini Badillo DO [place] none Estimated Blood Loss 0 Findings Consistent with Post-Op Diagnosis
--- NOTE | 2020-08-08 12:33 | Communication Note ---
Date of Service: August 08, 2020 The patient underwent repeat colonoscopy today. We were able to identify a strictured region in the sigmoid colon at approximately 20 cm. Stricture was nodular and ulcerated in appearance suggestive of an underlying malignancy. Biopsies were obtained and the stricture was stented with a colonic stent. Recommendations Await pathology results MiraLAX 17 g twice daily for 1 week then decrease to 1 time daily If biopsies positive for colon cancer would recommend a oncology referral and surgery referral
--- NOTE | 2020-08-08 12:59 | Fluoroscopy Report ---
ORALIA MAIER CLINICAL HISTORY: COLONOSCOPY POSSIBLE STENT COMPARISON STUDY: CT scan dated 08/05/2020 FLUOROSCOPY TIME: 53 seconds. NUMBER OF FLUOROSCOPIC IMAGES: 3 FINDINGS: 3 intraprocedural fluoroscopic spot images were obtained during a colonoscopy. The final im age demonstrates the placement of a colonic stent. IMPRESSION: Fluoroscopic spot images obtained during the placement of a colonic stent. ACT 112: Negative or not required by law. Electronically signed by: Rich Liu M.D. 08/08/2020 12:57 PM
[2020-08-08] MEDS: POTASSIUM CHLORIDE 40 MEQ in D5W AND 1/2NSS 1,000 ML/1,000 ML BAG IV SCH ×3 (13:02→21:38)
[2020-08-08] MEDS ORDERED: Nursing to Pharmacy Communication SCH (13:15)
--- NOTE | 2020-08-08 13:41 | Anesthesiology Progress Note ---
Date of Service August 08, 2020 Anesthesia Post Procedure Vital Signs Vital Signs: Temp Pulse Pulse Resp BP BP Pulse Ox 08/08/20 13:37 36.4 C L 70 16 151/77 H 94 08/08/20 12:50 36.4 C L 71 16 152/66 H 97 08/08/20 12:30 36.4 C L 65 16 155/65 H 100 08/08/20 12:20 67 16 165/74 H 99 08/08/20 12:10 68 16 148/91 H 97 08/08/20 12:01 36.3 C L 71 16 132/73 99 08/08/20 10:00 37.2 C 73 16 149/85 H 95 08/08/20 07:40 36.8 C 75 18 151/80 H 93 08/07/20 23:16 37.0 C 70 17 172/77 H 94 08/07/20 16:30 36.7 C 65 18 172/80 H 93 08/07/20 15:37 36.4 C L 64 16 169/82 H 92 Transfer of Care Handoff Completed per policy Notes Mental Status: alert / awake / arousable and participated in evaluation Patient Amnestic to Procedure: Yes Nausea / Vomiting: adequately controlled Pain: adequately controlled Airway Patency, RR, SpO2: stable & adequate BP & HR: stable & adequate Hydration State: stable & adequate Anesthetic Complications: no major complications apparent and Pt Satisfied with anesthetic care
--- NOTE | 2020-08-08 14:46 | GI REPORT ---
Patient Name: Taylor Pettit Procedure Date: 08/08/2020 11:09 AM Date of : 1935 Admit Type: Inpatient Age: 85 Gender: Female Attending MD: Gini Badillo DO Procedure: Colonoscopy Providers: Gini Badillo DO Referring MD: Ari La M.d., Chika House M.d. Indications: Therapeutic procedure, Abnormal CT of the GI tract Medicines: Monitored Anesthesia Care Complications: No immediate complications. Estimated blood loss: Minimal. Estimated Blood Loss: Estimated blood loss was minimal. Procedure: Pre-Anesthesia Assessment: - Prior to the procedure, a History and Physical was performed, and patient medications, allergies and sensitivities were reviewed. The patient's tolerance of previous anesthesia was reviewed. - The risks and benefits of the procedure and the sedation options and risks were discussed with the patient. All questions were answered and informed consent was obtained. - Patient identification and proposed procedure were verified prior to the procedure by the physician, the nurse and the physician primary care sports medicine. The procedure was verified in the procedure room. - Pre-procedure physical examination revealed no contraindications to sedation. - ASA Grade Assessment: III - A patient with severe systemic disease. - After reviewing the risks and benefits, the patient was deemed in satisfactory condition to undergo the procedure. - The anesthesia plan was to use monitored anesthesia care (MAC). - Immediately prior to administration of medications, the patient was re-assessed for adequacy to receive sedatives. - The heart rate, respiratory rate, oxygen saturations, blood pressure, adequacy of pulmonary ventilation, and response to care were monitored throughout the procedure. - The physical status of the patient was re-assessed after the procedure. After I obtained informed consent, the scope was passed under direct vision. Throughout the procedure, the patient's blood pressure, pulse, and oxygen saturations were monitored continuously. The Endoscope was introduced through the anus and advanced to the sigmoid colon to examine a mass. This was the intended extent. The colonoscopy was performed without difficulty. The patient tolerated the procedure well. The quality of the bowel preparation was good. Findings: The digital rectal exam findings include non-thrombosed external hemorrhoids. Pertinent negatives include normal sphincter tone. A fungating completely obstructing large mass was found in the sigmoid colon. The mass was circumferential (involving 100% of the lumen circumference). No bleeding was present. The stricture was evaluated by placing a 0.35 inch guidewire through the stricture and injecting contrast through an ERCP balloon. The stricture appeared to be at least 2 cm in length. Biopsies were taken with a cold forceps for histology. This was stented with under fluoroscopic guidance with a 6 cm x 23 mm [employer] Evolution colonic stent. Estimated blood loss was minimal. Impression: - Non-thrombosed external hemorrhoids found on digital rectal exam. 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 Biopsied. Prosthesis placed. Recommendation: - [facility]. - Await pathology results. - Miralax 1 capful (17 grams) in 8 ounces of water PO BID for 1 week then reduce to 1 time daily. - Consider oncology consultation -If needed EUS could be considered for biopsy of one of the liver masses or perhaps a percutaneous biopsy via radiology Gini Badillo D.O. Gini Badillo, 08/08/2020 2:46:03 PM This report has been signed electronically. Note Initiated On: 08/08/2020 11:09 AM Number of Addenda: 0 I attest to the content of the Intraoperative Record and orders documented therein, exceptions below {[id number]}
[2020-08-08] MEDS: NETARSUDIL 0.02% OPL SCH (17:34)
[2020-08-08] MEDS: BIMATOPROST 0.01% OPL SCH (21:36)
[2020-08-08] MEDS: POLYETHYLENE (MIRALAX) 17 GM PACK PO SCH (21:36)
--- NOTE | 2020-08-08 22:12 | Hospitalist Progress Note ---
Date of Service August 08, 2020 Assessment & Plan (1) Abdominal pain: Suspected partial bowel obstruction Findings concerning for metastatic colon cancer discussed with the patient and her daughter at bedside. CEA is elevated, suggestive of colorectal cancer. Continue ciprofloxacin and metronidazole for possible bacterial infection. Consulted GI: had successful stent placed at stricture in colon. Updated family. wILL TRY A CLEAR LIQUID DIET. Patient will benefit from oncology consult, will until pathology results are back. Daughter reports she would like mother to make decisions on treatment going forward. (2) Liver mass: Concerning for metastatic spread of colon cancer. (3) Thickened endometrium: Follow-up with gynecology as an outpatient. (4) Ovarian cyst, bilateral: Follow-up with gynecology as an outpatient. Ca1 to 5 added to a.m. labs. (5) Leukocytosis: Concerning for infective etiology as above. Continue ciprofloxacin and metronidazole. (6) Glaucoma: Continue her routine eyedrops. (7) DVT prophylaxis: SCDs pending GI review Admission and Anticipated Discharge Date Admission Date: August 05, 2020 Subjective 85 yo female reports feeling well. She has no new complaints at this time. She tolerated her stent placement and is interested in a diet. Review of Systems Review of Systems: All systems reviewed & are unremarkable except as noted in HPI & below Physical Exam Physical Exam: Constitutional: well developed, + thin and + frail appearing; no acute distress Eyes: + anicteric sclerae; normal pupil size ENMT: external ear and nose normal, oropharynx normal Neck: trachea midline Respiratory: normal respiratory effort, lungs clear to auscultation Cardiovascular: RRR, no murmur, no edema Gastrointestinal (Abdomen): Inspection/Auscultation: normal bowel sounds Percussion/Palpation: + abdomen tender (Mild RLQ) and abdomen soft; no guarding and abdomen not rigid Musculoskeletal: no cyanosis or clubbing, extremities motor strength 5/5 Skin: no rashes, warm and dry Neurologic: moves all extremities and awake; no focal motor deficits and not confused Psychiatric: A+Ox3, euthymic affect Results & Data Results & Data ([facility]) Vital Signs (Past 12 Hours) Vital Signs Temp Pulse Pulse Resp BP BP Pulse Ox 08/08/20 20:24 36.6 C 81 17 115/78 94 08/08/20 15:18 36.3 C L 73 18 130/68 94 08/08/20 13:37 36.4 C L 70 16 151/77 H 94 08/08/20 12:50 36.4 C L 71 16 152/66 H 97 08/08/20 12:30 36.4 C L 65 16 155/65 H 100 08/08/20 12:20 67 16 165/74 H 99 08/08/20 12:10 68 16 148/91 H 97 08/08/20 12:01 36.3 C L 71 16 132/73 99 PG Care Time/CCT Total # of Minutes Spent Total Time Spent with Patient: Total time spent is greater than 50% in coordination of care (as documented) at patient's floor/unit and/or counseling patient: Coding Level of Care Code 38498 Subseq Hosp Care Lvl 3 Diagnoses Abdominal pain R10.9 Abdominal location: unspecified location Liver mass R16.0 Thickened endometrium R93.89 Ovarian cyst, bilateral N83.201; N83.202 Leukocytosis D72.829 Leukocytosis type: unspecified Glaucoma H40.9 DVT prophylaxis Z29.9 Time Spent (min) 35 (1) Leukocytosis Leukocytosis type: unspecified Qualified Code(s): D72.829 - Elevated white blood cell count, unspecified (2) Abdominal pain Abdominal location: unspecified location Qualified Code(s): R10.9 - Unspecified abdominal pain
[2020-08-09] MEDS: metroNIDAZOLE 500 MG/100 ML BAG IV SCH ×3 (00:01→16:43)
[2020-08-09] MEDS: POTASSIUM CHLORIDE 40 MEQ in D5W AND 1/2NSS 1,000 ML/1,000 ML BAG IV SCH ×3 (00:27→20:57)
[2020-08-09 03:16] LABS: Calcium 7.8 mg/dl (8.5-10.1); Creatinine Clr Calc Pharmacy 49.6 ml/min; Est GFR (African American) 86.8; Est GFR (Non-African American) 74.9; Potassium 3.6 mmol/L (3.5-5.1)
[2020-08-09] MEDS: CIPROFLOXACIN / D5W 400 MG/200 ML BAG IV SCH ×2 (04:49→16:43)
[2020-08-09] MEDS: POLYETHYLENE (MIRALAX) 17 GM PACK PO SCH ×2 (08:08→20:58)
[2020-08-09] MEDS: DORZOLAMIDE HCL 2% OPH SOLN 10 ML BTL OPL SCH ×4 (08:08→20:58)
[2020-08-09] MEDS: TIMOLOL MALEATE 0.5% OP SOLN 5 ML BTL OPL SCH (08:19)
--- NOTE | 2020-08-09 11:16 | Surgery Progress Note ---
Date of Service August 09, 2020 Assessment & Plan (1) Colonic mass: Patient seen and doing well s/p colonic stent placement yesterday She is having less pain and is passing BM's From our standpoint can advance diet as tolerates Will likely plan on bowel resection on an elective basis to allow patient to improve nutritional status Patient will need an Oncologic Referral Please follow up with Dr. Shaver within 1-2 weeks Admission and Anticipated Discharge Date Admission Date: August 05, 2020 Subjective Patient evaluated sitting at bedside. She was washing herself up. She states she is feeling well s/p colonoscopy and stent placement. She is tolerating a liquid diet. She continues to pass BM's. Physical Exam Physical Exam: awake Respiratory: normal respiratory effort Gastrointestinal (Abdomen): Percussion/Palpation: abdomen soft Results & Data ([facility]) Vital Signs (Past 12 Hours) Vital Signs Temp Pulse Resp BP Pulse Ox 08/09/20 05:07 36.3 C L 68 15 123/75 94 PG Care Time/CCT Total # of Minutes Spent Total Time Spent with Patient: Total time spent is greater than 50% in coordination of care (as documented) at patient's floor/unit and/or counseling patient: Coding Level of Care Code 01810 Subseq Hosp Care Lvl 1 Diagnoses Colonic mass K63.89
[2020-08-09] MEDS: NETARSUDIL 0.02% OPL SCH (17:54)
[2020-08-09] MEDS: BIMATOPROST 0.01% OPL SCH (20:59)
--- NOTE | 2020-08-09 21:47 | Hospitalist Progress Note ---
Date of Service August 09, 2020 Assessment & Plan (1) Abdominal pain: Suspected partial bowel obstruction Findings concerning for metastatic colon cancer discussed with the patient and her daughter at bedside. CEA is elevated, suggestive of colorectal cancer. Continue ciprofloxacin and metronidazole for possible bacterial infection. Consulted GI: had successful stent placed at stricture in colon. Updated family on 08/08 Tolerated clear liquid diet and having BMs, will now advance to a full liquid diet. Advance as tolerated. Patient will benefit from oncology consult, will wait until pathology results are back. Daughter reports she would like mother to make decisions on treatment going forward. Patient wants to hold off decision until pathology report is read. (2) Liver mass: Concerning for metastatic spread of colon cancer. (3) Thickened endometrium: Follow-up with gynecology as an outpatient. (4) Ovarian cyst, bilateral: Follow-up with gynecology as an outpatient. Ca1 to 5 added to a.m. labs. (5) Leukocytosis: Concerning for infective etiology as above. Continue ciprofloxacin and metronidazole. (6) Glaucoma: Continue her routine eyedrops. (7) DVT prophylaxis: SCDs pending GI review Admission and Anticipated Discharge Date Admission Date: August 05, 2020 Subjective Patient is undecided on if she wants treatment or not and wants to make decision once biopsy reults come back. She is having bowel movements and is tolerating diet. Review of Systems Review of Systems: All systems reviewed & are unremarkable except as noted in HPI & below Physical Exam Physical Exam: Constitutional: well developed, + thin and + frail appearing; no acute distress Eyes: + anicteric sclerae; normal pupil size ENMT: external ear and nose normal, oropharynx normal Neck: trachea midline Respiratory: normal respiratory effort, lungs clear to auscultation Cardiovascular: RRR, no murmur, no edema Gastrointestinal (Abdomen): Inspection/Auscultation: normal bowel sounds Percussion/Palpation: + abdomen mildly tender (Mild RLQ) and abdomen soft; no guarding and abdomen not rigid Musculoskeletal: no cyanosis or clubbing, extremities motor strength 5/5 Skin: no rashes, warm and dry Neurologic: moves all extremities and awake; no focal motor deficits and not confused Psychiatric: A+Ox3, euthymic affect Results & Data Results & Data ([facility]) Vital Signs (Past 12 Hours) Vital Signs Temp Pulse Resp BP Pulse Ox 02/20/21 15:39 37.5 C 71 20 136/76 94 PG Care Time/CCT Total # of Minutes Spent Total Time Spent with Patient: Total time spent is greater than 50% in coordination of care (as documented) at patient's floor/unit and/or counseling patient: Coding Level of Care Code 97623 Subseq Hosp Care Lvl 3 Diagnoses Abdominal pain R10.9 Abdominal location: unspecified location Liver mass R16.0 Thickened endometrium R93.89 Ovarian cyst, bilateral N83.201; N83.202 Leukocytosis D72.829 Leukocytosis type: unspecified Glaucoma H40.9 DVT prophylaxis Z29.9 Time Spent (min) 35 (1) Leukocytosis Leukocytosis type: unspecified Qualified Code(s): D72.829 - Elevated white blood cell count, unspecified (2) Abdominal pain Abdominal location: unspecified location Qualified Code(s): R10.9 - Unspecified abdominal pain
[2020-08-10] MEDS: metroNIDAZOLE 500 MG/100 ML BAG IV SCH ×2 (00:36→07:47)
[2020-08-10] MEDS: CIPROFLOXACIN / D5W 400 MG/200 ML BAG IV SCH (03:48)
[2020-08-10 04:01] LABS: Hematocrit (blood only) 35.9 % (37-47); Hemoglobin 12.3 g/dL (12.0-16.0); Mean Corpuscular Hgb Conc 34.3 g/dL (32-36); Mean Corpuscular Volume 93.5 fL (80-100); Mean Platelet Volume 9.4 fL (7.4-10.4); Platelet Count 453 K/uL (130-400); RDW Coefficient of Variation 14.4 % (11.5-14.5); RDW Standard Deviation 48.7 fL (36.4-46.3); Red Blood Count 3.84 M/uL (4.2-5.4); White Blood Count 20.39 K/uL (4.8-10.8)
[2020-08-10 04:22] LABS: BUN Creatinine Ratio 10.5 (10-20); Calcium 7.6 mg/dl (8.5-10.1); Creatinine Clr Calc Pharmacy 52.4 ml/min; Est GFR (African American) 92.9; Est GFR (Non-African American) 80.1; Potassium 3.7 mmol/L (3.5-5.1)
[2020-08-10] MEDS: POLYETHYLENE (MIRALAX) 17 GM PACK PO SCH ×2 (07:48→20:08)
[2020-08-10] MEDS: TIMOLOL MALEATE 0.5% OP SOLN 5 ML BTL OPL SCH (07:48)
[2020-08-10] MEDS: DORZOLAMIDE HCL 2% OPH SOLN 10 ML BTL OPL SCH ×4 (07:48→20:12)
[2020-08-10] MEDS: POTASSIUM CHLORIDE 40 MEQ in D5W AND 1/2NSS 1,000 ML/1,000 ML BAG IV SCH ×2 (07:49→15:35)
--- NOTE | 2020-08-10 14:11 | Hospitalist Progress Note ---
Date of Service August 10, 2020 Assessment & Plan (1) Leukocytosis: Concerning for infective etiology as above, though no clear source. May also be inflammatory from colonic obstruction. Stool cultures and C. diff from 08/05 were negative. - Continue ciprofloxacin and metronidazole. - WBC up to 20k today. Will get blood cultures, UA, and CXR. No focal symptoms apart from her GI issues as detailed below. (2) Abdominal pain: Colonoscopy on 08/08 showed [address] colon cancer. CT a/p on 08/05 with multiple hepatic lesions which are likely metastatic disease. - CEA is elevated, suggestive of colorectal cancer. - Continue ciprofloxacin and metronidazole for possible bacterial infection. - Consulted GI - Appreciate recs - Consulted surgery - Plan for resection on elective basis for time to recover. - Plan for oncology evaluation once pathology is back. (3) Liver mass: Concerning for metastatic spread of colon cancer. (4) Thickened endometrium: Follow-up with gynecology as an outpatient. (5) Ovarian cyst, bilateral: Ca-125 on 08/06 was normal. - Follow-up with gynecology as an outpatient. (6) Glaucoma: - Continue her routine eyedrops. (7) DVT prophylaxis: Lovenox - High risk given likely cancer. Admission and Anticipated Discharge Date Admission Date: August 05, 2020 Subjective Overall in good spirits today. She is eating and drinking ok. Having BMs. Reports no fevers/chills, chest pain, shortness of breath, abdominal pain, nausea, or vomiting. Physical Exam Constitutional: WD/WN, vitals as above Eyes: EOM intact bilaterally; no conjunctival abnormality ENMT: external ear and nose normal, oropharynx normal Neck: trachea midline, no thyromegaly normal visual inspection Respiratory: normal respiratory effort, lungs clear to auscultation no respiratory distress Cardiovascular: RRR, no murmur, no edema Gastrointestinal (Abdomen): Inspection/Auscultation: abdomen normal to inspection; abdomen not distended Musculoskeletal: no cyanosis or clubbing, extremities motor strength 5/5 Skin: no rashes, warm and dry Neurologic: moves all extremities and awake Psychiatric: Orientation: alert, oriented to person and cooperative Results & Data Results & Data ([facility]) Vital Signs (Past 12 Hours) Vital Signs Temp Pulse Resp BP Pulse Ox 08/10/20 07:01 36.7 C 76 16 137/77 94 PG Care Time/CCT Total # of Minutes Spent Total Time Spent with Patient: Total time spent is greater than 50% in coordination of care (as documented) at patient's floor/unit and/or counseling patient: Coding Level of Care Code 55562 Subseq Hosp Care Lvl 3 Diagnoses Leukocytosis D72.829 Leukocytosis type: unspecified Abdominal pain R10.9 Abdominal location: unspecified location Liver mass R16.0 Thickened endometrium R93.89 Ovarian cyst, bilateral N83.201; N83.202 Glaucoma H40.9 DVT prophylaxis Z29.9 (1) Abdominal pain Abdominal location: unspecified location Qualified Code(s): R10.9 - Unspecified abdominal pain (2) Leukocytosis Leukocytosis type: unspecified Qualified Code(s): D72.829 - Elevated white blood cell count, unspecified
--- NOTE | 2020-08-10 14:43 | XRay Report ---
XR chest 2V PA/lateral HISTORY: 85 years-old Female Leukocytosis COMPARISON: CT abdomen pelvis 08/05/2020 TECHNIQUE: PA and lateral views of the chest FINDINGS: Cardiac silhouette is upper limits of normal in size. Mild right diaphragmatic calcified plaque of th e thorax, pleural effusion, airspace elevation or overt pulmonary edema. Degenerative changes of the shoulders and spine. Cholecystectomy. IMPRESSION: No acute process. ACT 112: Negative or not required by law. The above report was generated using voice recognition software. It may contain grammatical, syntax o r spelling errors. Electronically signed by: Vishnu Domingo M.D. 08/10/2020 2:41 PM
[2020-08-10] MEDS: NETARSUDIL 0.02% OPL SCH (17:37)
[2020-08-10] MEDS: metroNIDAZOLE 500 MG TAB PO SCH (20:07)
[2020-08-10] MEDS: CIPROFLOXACIN 500 MG TAB PO SCH (20:07)
[2020-08-10] MEDS: BIMATOPROST 0.01% OPL SCH (20:07)
[2020-08-11 05:09] LABS: Appearance Urine Clear (Clear); Bilirubin Urine Negative (Negative); Blood Urine Negative (Negative); Color Urine Yellow; Glucose Urine UA Negative (Negative); Ketones Urine Negative (Negative); Leukocyte Esterase Urine Negative (Negative); Nitrite Urine Negative (Negative); Protein Urine Negative (Negative); Specific Gravity Urine 1.013 (1.000-1.030); Urobilinogen Urine Negative (Negative)
[2020-08-11 06:18] LABS: Hematocrit (blood only) 35.6 % (37-47); Hemoglobin 12.1 g/dL (12.0-16.0); Mean Corpuscular Hemoglobin 31.5 pg (25-34); Mean Corpuscular Volume 92.7 fL (80-100); Mean Platelet Volume 9.4 fL (7.4-10.4); Platelet Count 417 K/uL (130-400); RDW Coefficient of Variation 14.7 % (11.5-14.5); RDW Standard Deviation 49.7 fL (36.4-46.3); Red Blood Count 3.84 M/uL (4.2-5.4); White Blood Count 19.52 K/uL (4.8-10.8)
[2020-08-11 06:35] LABS: INR 1.3 (0.9-1.1)
[2020-08-11 06:53] LABS: Albumin Level 2.1 gm/dl (3.4-5.0); BUN Creatinine Ratio 9.6 (10-20); Calcium 8.2 mg/dl (8.5-10.1); Creatinine Clr Calc Pharmacy 53.9 ml/min; Est GFR (African American) 93.8; Est GFR (Non-African American) 80.9; Magnesium 1.8 mg/dl (1.8-2.4); Potassium 3.3 mmol/L (3.5-5.1)
[2020-08-11 06:56] LABS: Albumin Globulin Ratio 0.7 (0.9-2); Bilirubin,Total 0.8 mg/dl (0.2-1); Globulin 3.2 gm/dl (2.5-4.0); Total Protein 5.3 gm/dl (6.4-8.2)
[2020-08-11] MEDS: DORZOLAMIDE HCL 2% OPH SOLN 10 ML BTL OPL SCH ×4 (09:09→21:22)
[2020-08-11] MEDS: metroNIDAZOLE 500 MG TAB PO SCH ×3 (09:11→21:21)
[2020-08-11] MEDS: CIPROFLOXACIN 500 MG TAB PO SCH ×2 (09:14→21:21)
[2020-08-11] MEDS: ENOXAPARIN INJ 40 MG/0.4 ML SYR SQ SCH (09:15)
[2020-08-11] MEDS: POLYETHYLENE (MIRALAX) 17 GM PACK PO SCH ×2 (09:17→21:21)
[2020-08-11] MEDS: TIMOLOL MALEATE 0.5% OP SOLN 5 ML BTL OPL SCH (09:21)
[2020-08-11] MEDS: DIFLUPREDNATE 0.05% OPR SCH (09:22)
--- NOTE | 2020-08-11 10:00 | Hospitalist Progress Note ---
Date of Service August 11, 2020 Assessment & Plan (1) Leukocytosis: Concerning for infective etiology as above, though no clear source. May also be inflammatory from colonic obstruction. Stool cultures and C. diff from 08/05 were negative. - Continue ciprofloxacin and metronidazole. - No focal symptoms apart from her GI issues as detailed below. (2) Abdominal pain: Colonoscopy on 08/08 showed likely colon cancer. CT a/p on 08/05 with multiple hepatic lesions which are likely metastatic disease. - CEA is elevated, suggestive of colorectal cancer. - Continue ciprofloxacin and metronidazole for possible bacterial infection. - Consulted GI - Appreciate recs - Consulted surgery - Plan for resection on elective basis for time to recover. - Plan for oncology evaluation once pathology is back. (3) Liver mass: Concerning for metastatic spread of colon cancer. CT 08/05/20 IMPRESSION: 1. There are greater than 10 space-occupying hepatic masses, a finding viewed as highly suspicious for metastatic disease 2. Distended colon down to the level of the sigmoid. 3. Sigmoid diverticulosis and sigmoid wall thickening. 4. Loss of the normal fat plane between small bowel loops the sigmoid colon 5. Differential diagnostic considerations for the sigmoid colonic thickening include neoplasm versus diverticular related wall thickening. Endoscopic correlation is recommended in follow-up given the suspicion of multiple hepatic metastasis 6. Bilateral cystic ovarian lesions 7. Thickened endometrium Colonoscopy performed 08/08/2020 shows a fungating completely obstructing large mass in the sigmoid colon. The mass was circumferential involving 100% of the luminal circumference. There was no bleeding. The stricture was evaluated by placing a 0.35 inch guidewire through the structure and injecting contrast through the ERCP balloon. The stricture appeared to be at least 2 cm in length. Biopsies were taken with resulted to be infiltrative adenocarcinoma. This was done under fluoroscopic guidance (4) Thickened endometrium: Follow-up with gynecology as an outpatient. (5) Ovarian cyst, bilateral: Ca-125 on 08/06 was normal. - Follow-up with gynecology as an outpatient. (6) Glaucoma: - Continue her routine eyedrops. (7) DVT prophylaxis: Lovenox - High risk given likely cancer. spoke to daughter and niece, rodolfo, [phone], she is a nurse, but daughter is poa. conference call may be appreciated I spent an additional 35 minutes on the phone speaking to both the daughter and the niece regarding the patient's plan of plan of care this evening and I will go speak to the patient herself in a few moments with additional time spent Admission and Anticipated Discharge Date Admission Date: August 05, 2020 Results & Data Results & Data ([facility]) Vital Signs (Past 12 Hours) Vital Signs Temp Pulse Resp BP Pulse Ox 08/11/20 07:20 97.3 F L 73 16 133/78 94 08/11/20 00:04 98.8 F 73 16 118/66 95 PG Care Time/CCT Total # of Minutes Spent Total Time Spent with Patient: Total time spent is greater than 50% in coordination of care (as documented) at patient's floor/unit and/or counseling patient: Coding Level of Care Code 84832 Subseq Hosp Care Lvl 3 (25 - SIGNIFICANT, SEPARATELY IDENTIFIABLE ) Diagnoses Leukocytosis D72.829 Leukocytosis type: unspecified Abdominal pain R10.9 Abdominal location: unspecified location Liver mass R16.0 Thickened endometrium R93.89 Ovarian cyst, bilateral N83.201; N83.202 Glaucoma H40.9 DVT prophylaxis Z29.9 (1) Leukocytosis Leukocytosis type: unspecified Qualified Code(s): D72.829 - Elevated white blood cell count, unspecified (2) Abdominal pain Abdominal location: unspecified location Qualified Code(s): R10.9 - Unspecified abdominal pain
[2020-08-11] MEDS: POTASSIUM CHLORIDE CRTAB 20 MEQ TABCR PO SCH ×2 (11:39→21:22)
[2020-08-11] MEDS: NETARSUDIL 0.02% OPL SCH (18:38)
[2020-08-11] MEDS: BIMATOPROST 0.01% OPL SCH (21:18)
--- NOTE | 2020-08-12 08:17 | Hospitalist Progress Note ---
Date of Service August 12, 2020 Assessment & Plan (1) Leukocytosis: Concerning for infective etiology as above, though no clear source. May also be inflammatory from colonic obstruction. Stool cultures and C. diff from 08/05 were negative. -gi symptoms resolved will discuss antibiotic with GI medicine as with recent stent (2) Abdominal pain: Colonoscopy on 08/08 showed likely colon cancer. CT a/p on 08/05 with multiple hepatic lesions which are likely metastatic disease. - CEA is elevated, confirmed adenocarcinoma of distal sigmoid colon - Consulted surgery - suggesting diverting colostomy if colonic stent does not work, Gastroenterology feels stent will last 6 month to a year. , resection may happen in the future on elective basis Oncology does not feel further liver biopsy will be required to confirm m etastatic disease (3) Liver mass: Concerning for metastatic spread of colon cancer. CT 08/05/20 IMPRESSION: 1. There are greater than 10 space-occupying hepatic masses, a finding viewed as highly suspicious for metastatic disease 2. Distended colon down to the level of the sigmoid. 3. Sigmoid diverticulosis and sigmoid wall thickening. 4. Loss of the normal fat plane between small bowel loops the sigmoid colon 5. Differential diagnostic considerations for the sigmoid colonic thickening include neoplasm versus diverticular related wall thickening. Endoscopic correlation is recommended in follow-up given the suspicion of multiple hepatic metastasis 6. Bilateral cystic ovarian lesions 7. Thickened endometrium Colonoscopy performed 08/08/2020 shows a fungating completely obstructing large mass in the sigmoid colon. The mass was circumferential involving 100% of the luminal circumference. There was no bleeding. The stricture was evaluated by placing a 0.35 inch guidewire through the structure and injecting contrast through the ERCP balloon. The stricture appeared to be at least 2 cm in length. Biopsies were taken with resulted to be infiltrative adenocarcinoma. This was done under fluoroscopic guidance (4) Thickened endometrium: Follow-up with gynecology as an outpatient. (5) Ovarian cyst, bilateral: Ca-125 on 08/06 was normal. - Follow-up with gynecology as an outpatient. (6) Glaucoma: - Continue her routine eyedrops. (7) DVT prophylaxis: Lovenox - High risk given likely cancer. spoke to daughter and niece, rodolfo, [phone], she is a nurse, but daughter is poa. conference call may be appreciated Admission and Anticipated Discharge Date Admission Date: August 05, 2020 Subjective anxious and tearful, still no committal about direction of care. leaning toward going home and following up with oncology as an outpt Review of Systems Review of Systems: Mild distress and fatigue no headache, blurry or double vision no speech or swallowing issues no chest pain, pressure or palpitations no shortness of breath, cough or wheezes no abdominal pain, nausea or vomiting, diarrhea or constipation no dysuria, hematuria or frequency no focal joint pain or swelling no back pain, CVA tenderness or radicular pain no bruising, bleeding or rashes no focal signs of weakness or numbness or altered sensation no complaints of anxiety or depression.. Physical Exam Physical Exam: The patient appeared well nourished and normally developed. Vital signs as documented. Head exam is normocephalic atraumatic no scleral icterus Neck is without JVD, thyromegaly, or carotid bruits. Lungs are clear to auscultation, no focal loss of breath sounds Cardiac exam, Rhythm is regular.. No murmurs, rubs or gallops. Abdominal exam reveals normal bowel sounds, soft non tender, no masses Extremities are nonedematous and both pedal pulses are present Neurologic exam is alert and oriented, no focal loss of strength or sensation Skin is without bruises or rashes Psychologically is with anxiety Results & Data Results & Data ([facility]) Vital Signs (Past 12 Hours) Vital Signs Temp Pulse Pulse Resp BP Pulse Ox 08/12/20 07:15 98.1 F 79 16 156/76 H 99 08/11/20 22:36 97.9 F 67 18 145/77 H 95 PG Care Time/CCT Total # of Minutes Spent Total Time Spent with Patient: Total time spent is greater than 50% in coordination of care (as documented) at patient's floor/unit and/or counseling patient: Coding Level of Care Code 25406 Subseq Hosp Care Lvl 2 Diagnoses Leukocytosis D72.829 Leukocytosis type: unspecified Abdominal pain R10.9 Abdominal location: unspecified location Liver mass R16.0 Thickened endometrium R93.89 Ovarian cyst, bilateral N83.201; N83.202 Glaucoma H40.9 DVT prophylaxis Z29.9 (1) Leukocytosis Leukocytosis type: unspecified Qualified Code(s): D72.829 - Elevated white blood cell count, unspecified (2) Abdominal pain Abdominal location: unspecified location Qualified Code(s): R10.9 - Unspecified abdominal pain
[2020-08-12] MEDS: ENOXAPARIN INJ 40 MG/0.4 ML SYR SQ SCH (09:10)
[2020-08-12] MEDS: metroNIDAZOLE 500 MG TAB PO SCH ×3 (09:10→20:15)
[2020-08-12] MEDS: POTASSIUM CHLORIDE CRTAB 20 MEQ TABCR PO SCH (09:10)
[2020-08-12] MEDS: CIPROFLOXACIN 500 MG TAB PO SCH ×2 (09:10→20:14)
[2020-08-12] MEDS: POLYETHYLENE (MIRALAX) 17 GM PACK PO SCH ×2 (09:12→20:15)
[2020-08-12] MEDS: TIMOLOL MALEATE 0.5% OP SOLN 5 ML BTL OPL SCH (09:12)
[2020-08-12] MEDS: DORZOLAMIDE HCL 2% OPH SOLN 10 ML BTL OPL SCH ×3 (09:13→20:14)
--- NOTE | 2020-08-12 14:15 | Consultation ---
Date of Consultation August 12, 2020 Assessment & Plan (1) Metastatic adenocarcinoma: 85 y/o female who presented with bowel obstruction and metastatic liver disease - large sigmoid obstructing adenoCA with multifocal hepatic metastases - stage IV disease - discussed about palliative chemotherapy options, FOLFOX versus 5-FU/LV depending on her performance status and comorbidities - additional systemic options are available (EGFR targeted therapy and immunotherapy) depending on tumor genomics (KRAS/NRAS/BRAF, PD-L1, MSI, TMB) - patient is undecided about systemic chemotherapy; will discuss among family - [facility] at [facility] as an outpatient - spoke to her healthcare proxy, Dennise and niece, Vera; answered all questions - patient will need tumor resection or diverting colostomy to avoid bowel obstruction down the line - thank you for the courtesy of this consultation. feel free to contact if any questions Present on Admission?: Yes History of Present Illness Reason for Consultation: Metastatic sigmoid adenocarcinoma Attending Physician: Harry Cast MD History of Present Illness 85 y/o female with hx of HTN, who presented to the [facility] on 08/05/20 with complaints of abdominal pain, nausea, vomiting, and diarrhea. Abdominal pain & diarrhea has been intermittent over the last month, with her nausea and vomiting developing this past Tuesday. Workup in the ER with a CT a/p has revealed multiple liver lesions suspicious for metastatic disease, a distended colon down to the level of the sigmoid with sigmoid wall thickening. GI was consulted and performed a colonoscopy which showed an obstructing sigmoid mass at 18-20cm from the anus and were unable to traverse the scope past this point. Biopsy revealed infiltrating adenocarcinoma. Patient was seen and examined at bedside. No acute complaints or symptoms. She reports that routine health checkups were scarce. Never had a screening colonoscopy. Patient is relatively independent but she needs a walker for ambulation. ECOG PS 2. Lab data and imaging studies were reviewed. Allergies Allergy/AdvReac Type Severity Reaction Status Date / Time amoxicillin Allergy Unknown Verified 08/05/20 15:07 brimonidine Allergy Unknown Verified 08/05/20 15:07 sulfamethizole Allergy Unknown Verified 08/05/20 15:07 Home Medications Medication Instructions Recorded Confirmed Type bimatoprost [Lumigan] 1 drp OPR DAILY 03/14/19 08/05/20 History difluprednate [Durezol] 1 drp OPR 3XWK 03/14/19 08/05/20 History dorzolamide 1 drp OPL 3XWK 03/14/19 08/05/20 History netarsudil [Rhopressa] 1 drp OPR PM 03/14/19 08/05/20 History timolol maleate 1 drp OPR DAILY 03/14/19 08/05/20 History cholecalciferol (vitamin D3) 50 mcg PO DAILY 08/05/20 08/05/20 History [Vitamin D3] dextran 70-hypromellose 1 drp OPHTHALMIC (EYE) DIRECTED 08/05/20 08/05/20 History [Artificial Tears (PF)] PRN Patient History Medical History (Updated 08/12/20 @ 16:06 by Maximo Lovett MD) Glaucoma No pertinent past medical history Surgical History (Updated 08/07/20 @ 15:36 by Antonio Sánchez MD) Hx of colonoscopy S/P cholecystectomy Social History Smoking Status: Never smoker Hx Alcohol Use: No Hx Substance Use: No Preferred Language: British Communication Ability: Effective Visual Impairment: Limited Hearing Ability: Normal Laundry Clerk Required: No Beliefs That Will Affect Care: None marital status: / Current Living Situation: Family current occupational status: retired Other Information That Helps Us Care for You: No Feels Safe at Home: Yes Safety Concerns: Feels Safe At This Time Assistive Devices: Glasses and Walker Review of Systems Review of Systems: Constitutional: Negative for night sweats, or fever. WEIGHT LOSS, ANOREXIA Eyes: Negative for event change of vision ENT: Negative for epistaxis, nasal discharge, sore throat, or deafness Cardiovascular: Negative for anginal type chest pain, palpitations, dizziness, diaphoresis Respiratory: Negative for new shortness of breath, hemoptysis, or purulent cough Gastrointestinal: Negative for diarrhea, hematemesis, melena or dyspepsia. NAUSEA, VOMIT, ABDOMINAL PAIN, DIARRHEA Integumentary (skin): Negative for rash or jaundice discoloration Genitourinary: Negative for urinary frequency, hematuria, or dysuria Neurological: Negative for weakness, seizure activity, headache, or dizziness Lymphatic/Hematologic: Negative for petechiae, bleeding or new adenopathy Musculoskeletal: Negative for new joint or back pain Allergic/Immunologic: Negative for unusual rash or pruritus Physical Exam Physical Exam: Constitutional: Vitals are stable Eyes: Eyes are LYDIA EOMI without conjunctival erythema or icterus. ENT: External examination was negative for masses. Neck: Negative for masses or palpable thyromegaly. Respiratory: Lung sounds were generally clear bilaterally. Cardiovascular: Heart was RRR without significant murmur, gallops or rubs. Gastrointestinal: The abdomen was soft with normal bowel sounds. Lymphatic system: There was no palpable peripheral lymphadenopathy. Musculoskeletal System: The musculoskeletal system seemed concordant with age. Skin: The skin was negative for jaundice. Neurologic Exam: The exam was negative for any focal findings. Extremities: Negative for edema or erythema Results & Data ([facility]) Vital Signs (Past 12 Hours) Vital Signs Temp Pulse Resp BP Pulse Ox 08/12/20 07:15 36.7 C 79 16 156/76 H 99 Laboratory Results WBC 16, Hb 13, HCt 40, Platlets 561, Na 141, K 3.1, Cl 111, CO2 25, BUN 10, Cr 0.78, glucose [address] SCAN abd/pelvis with IV contrast 08/05/20 : 1. There are greater than 10 space-occupying hepatic masses, a finding viewed as highly suspicious for metastatic disease 2. Distended colon down to the level of the sigmoid. 3. Sigmoid diverticulosis and sigmoid wall thickening. 4. Loss of the normal fat plane between small bowel loops the sigmoid colon 5. Differential diagnostic considerations for the sigmoid colonic thickening include neoplasm versus diverticular related wall thickening. Endoscopic correlation is recommended in follow-up given the suspicion of multiple hepatic metastasis 6. Bilateral cystic ovarian lesions 7. Thickened endometrium
[2020-08-12] MEDS: NETARSUDIL 0.02% OPL SCH (18:36)
[2020-08-12] MEDS: BIMATOPROST 0.01% OPL SCH (20:14)
[2020-08-13] MEDS: metroNIDAZOLE 500 MG TAB PO SCH (09:09)
[2020-08-13] MEDS: ENOXAPARIN INJ 40 MG/0.4 ML SYR SQ SCH (09:09)
[2020-08-13] MEDS: CIPROFLOXACIN 500 MG TAB PO SCH (09:09)
[2020-08-13] MEDS: TIMOLOL MALEATE 0.5% OP SOLN 5 ML BTL OPL SCH (09:11)
[2020-08-13] MEDS: DORZOLAMIDE HCL 2% OPH SOLN 10 ML BTL OPL SCH (09:11)
[2020-08-13] MEDS: POLYETHYLENE (MIRALAX) 17 GM PACK PO SCH (09:18)
[2020-08-13] MEDS: DIFLUPREDNATE 0.05% OPR SCH (09:32)
--- NOTE | 2020-08-13 09:55 | Communication Note ---
Date of Service: August 13, 2020 Pt's colonoscopy path showed infiltrative adenocarcinoma. EUS liver bx not required any more thus will cancel this procedure Pt will f/u w Oncology to formulate plan for her cancer treatment plan GI to sign off; pls recall prn I was able to talk with the patient's family yesterday to help coordinate the plan of care for their mother. She does appear to have metastatic colon cancer, we did offer EUS guided liver biopsy to sample the liver lesions. It appears that this is not required per oncology service which is great news for the patient as she will not require procedure today. With regard to the colonic stent this should last for several months and perhaps it would be in the patient's best interest to hold on surgical intervention for the present time. It may be reasonable to have the patient seen by colorectal surgeon as an outpatient surgery is being contemplated.
--- NOTE | 2020-08-13 15:13 | Discharge Summary ---
Date of Service August 13, 2020 Admission HPI Per Admitting Provider 85 yo fm with a history of dilated CT on imaging concern for a ?sigmoid mass/stricture and proximal colon dilation. Principal Diagnosis infiltrative adenocarcinoma distal sigmoid colon with stent placement liver metastasis Discharge Exam The patient appeared well Vital signs as documented. Lungs are clear to auscultation and appear unlabored Cardiac exam, Rhythm is regular.. No murmurs, rubs or gallops. Abdominal exam reveals normal bowel sounds, soft non tender, no masses Extremities are nonedematous and both pedal pulses are normal. Neurologic exam is alert and oriented, no focal loss of strength or sensation Skin is without bruises or rashes Psychologically is without concerns for anxiety or depression. Discharge Data Allergies Allergy/AdvReac Type Severity Reaction Status Date / Time amoxicillin Allergy Unknown Verified 08/05/20 15:07 brimonidine Allergy Unknown Verified 08/05/20 15:07 sulfamethizole Allergy Unknown Verified 08/05/20 15:07 Consultations 08/05/20 16:04 ED Decision to Admit Stat 08/05/20 19:15 Consult Gastroenterology Routine 08/07/20 10:09 Consult General Surgery Routine 08/11/20 18:11 Consult Oncology Routine Procedures Performed Operation Date: 08/07/20 16:00 Actual Procedures p Colonoscopy - Chika House MD Operation Date: 08/08/20 10:15 Actual Procedures p Colonoscopy, colonic Stent placement, and biopsies(Not Applicable) - Gini Badillo DO Operation Date: 08/13/20 12:35 <No data on this case meets the specified criteria> Ordered Studies 08/05/20 13:55 CT abd pelvis IV con only Stat 08/08/20 10:10 FL KUB Routine FL fluoroscopy <1hr Routine Hospital Course (1) Adenocarcinoma: Circumferential fungating mass found in the sigmoid colon biopsied found to be infiltrative ductal carcinoma with concern for liver metastasis on imaging. Prominent ovaries also need to be worked up (2) Abdominal pain: Colonoscopy on 08/08 showed likely colon cancer. CT a/p on 08/05 with multiple hepatic lesions which are likely metastatic disease. - CEA is elevated, confirmed adenocarcinoma of distal sigmoid colon - Consulted surgery - suggesting diverting colostomy if colonic stent does not work, Gastroenterology feels stent will last 6 month to a year. , resection may happen in the future on elective basis Oncology does not feel further liver biopsy will be required to confirm metastatic disease, plans to have office follow up and discussion on treatment options, family considering oral palliative treatment (3) Liver mass: Concerning for metastatic spread of colon cancer. CT 08/05/20 IMPRESSION: 1. There are greater than 10 space-occupying hepatic masses, a finding viewed as highly suspicious for metastatic disease 2. Distended colon down to the level of the sigmoid. 3. Sigmoid diverticulosis and sigmoid wall thickening. 4. Loss of the normal fat plane between small bowel loops the sigmoid colon 5. Differential diagnostic considerations for the sigmoid colonic thickening inc lude neoplasm versus diverticular related wall thickening. Endoscopic correlation is recommended in follow-up given the suspicion of multiple hepatic metastasis 6. Bilateral cystic ovarian lesions 7. Thickened endometrium Colonoscopy performed 08/08/2020 shows a fungating completely obstructing large mass in the sigmoid colon. The mass was circumferential involving 100% of the luminal circumference. There was no bleeding. The stricture was evaluated by placing a 0.35 inch guidewire through the structure and injecting contrast through the ERCP balloon. The stricture appeared to be at least 2 cm in length. Biopsies were taken with resulted to be infiltrative adenocarcinoma. This was done under fluoroscopic guidance (4) Thickened endometrium: Follow-up with gynecology as an outpatient if oncology feels wound be beneficial (5) Ovarian cyst, bilateral: Ca-125 on 08/06 was normal. - Follow-up with gynecology as an outpatient. (6) Glaucoma: - Continue her routine eyedrops. Total Time Total Time Spent Total Time Spent (In Minutes): It required greater than 30 minutes to prepare this patient for discharge Discharge Plan Discharge Items Patient Disposition: Home - Self-Care Reason For Visit: LARGE BOWEL OBSTRUCTION/MASS Discharge Diagnosis: adenocarcinoma of colon with suspected liver metastasis Activity: Resume your previous activity Non-emergency contact: Primary Care Provider and Oncologist Call non-emergency contact if: you have any medication questions and your symptoms worsen Follow-up/Referrals: Noel Shaver DO [Physician] - 08/20/20 3:00 pm (Please call to schedule follow up in clinic within 1 week) Maximo Madden [Primary Care Provider] - 08/26/20 1:00 pm Diet: Low Fiber Addtl Attending Provider Instructions: please have a low fiber diet, you may use liquid nutritional supplements. generally if you are going to have vegetables they should be well cooked, or mashed meat should be ground or chewed well things to look for would be decreased or no stool output, bloating or abdominal pain if these occur please return to the hospital additionally things like fever or other changes in your body seek medical care Pending Studies at Discharge: No Stand-Alone Forms: [facility] C[facility] Medications and DC Order Prescriptions: New ciprofloxacin HCl [Cipro] 500 mg tablet 500 mg PO BID Qty: 10 RF: 0 Continued timolol maleate 0.5 % drops 1 drp OPR DAILY RF: 0 dorzolamide 2 % drops 1 drp OPL 3XWK RF: 0 Durezol 0.05 % drops 1 drp OPR 3XWK RF: 0 Lumigan 0.01 % drops 1 drp OPR DAILY RF: 0 Rhopressa 0.02 % Drops 1 drp OPR PM RF: 0 cholecalciferol (vitamin D3) [Vitamin D3] 50 mcg (2,000 unit) Capsule 50 mcg PO DAILY RF: 0 Artificial Tears (PF) Dropperette 1 drp OPHTHALMIC (EYE) DIRECTED PRN (Reason: Dry Eyes) RF: 0 Discharge Orders: Discharge Order (Routine); Ordered 08/13/20 Ordered By: Harry Young/Other Patient Handouts: Low-Fiber Diet Admission Data Admit Date/Time: 08/05/20 17:00 Attending Provider: Harry Cast Admit Provider: Fausto Odell Primary Care Provider: Maximo Madden Other Providers: Chika House ; Noel Shaver ; Kiet Fernandez ; Dakota Taylor V. ; [facility] Other Interventions: Discharge Summary Assessment (RN) Last Done: 08/13/20 09:37 Coding Level of Care Code D/C Day Management >30 mins Diagnoses Adenocarcinoma C80.1 Abdominal pain R10.9 Abdominal location: unspecified location Liver mass R16.0 Thickened endometrium R93.89 Ovarian cyst, bilateral N83.201; N83.202 Glaucoma H40.9
== END 2020-08-13 11:17 | disposition home health service (06) | DRG 375 ==
LOC: ED 13:31 → SUATTDRO 17:00 → 3N 17:00

== ENCOUNTER 2020-09-02 11:23 | Inpatient (IN) ==
[2020-09-02 12:37] LABS: Appearance Urine Cloudy (Clear); Bacteria Urine Automated 3+ (Negative); Bilirubin Urine Negative (Negative); Blood Urine Trace (Negative); Color Urine Dark Yellow; Epithelial Cell Urine Auto >30 /lpf (0-5); Glucose Urine UA Negative (Negative); Ketones Urine Negative (Negative); Leukocyte Esterase Urine Trace (Negative); Nitrite Urine Negative (Negative); Protein Urine Negative (Negative); Specific Gravity Urine 1.019 (1.000-1.030); Urobilinogen Urine Negative (Negative)
[2020-09-02] MEDS ORDERED: ONDANSETRON INJ 2 MG/ML 2 ML VIAL IV STA (12:41)
[2020-09-02] MEDS ORDERED: SODIUM CHLORIDE 0.9% 1000ML 1,000 ML IV ONE (12:41)
--- NOTE | 2020-09-02 12:42 | Emergency Department Note ---
Impression & Plan Abdominal pain, Colonic mass, Metastatic adenocarcinoma, Colon cancer, Hypothermia, Leukocytosis, Anemia ED Provider Note NAME: GAY PEÑA AGE: 85 SEX: F : 1935 ARRIVES VIA: Walk-In INFORMANT: Patient ED PROVIDER(S): Blanco Napoles DO CHIEF COMPLAINT: abdominal pain HPI: Patient is an 85-year-old female with a past medical history of metastatic colon cancer who presents to the ER for abdominal pain and bloating. She has been admitted before and had stents placed secondary to obstructions by GI. She follows with Dr. Nava. She notes that she cannot even touch her belly as it is very tender. This all started when she woke up this morning and it got significantly worse. Pain has improved. Its only a 2 out of 10. She does admit to chills and shaking. Denies any fevers. No headache or change in vision. No chest pain or shortness of breath. No other exacerbating or remitting factors. ROS: See above HPI for pertinent positives & negatives. A total of 10 systems reviewed and were otherwise negative. PAST MEDICAL HISTORY:See Below PAST SURGICAL HISTORY:See Below FAMILY HISTORY:See Below SOCIAL HISTORY:See Below HOME MEDICATIONS:See Below ALLERGIES:See Below VITALS:See Below PHYSICAL EXAMINATION: GENERAL: Sitting up in bed, alert, chronically ill-appearing, disheveled EYE EXAM: normal conjunctiva. OROPHARYNX: no exudate, no erythema, lips, buccal mucosa, and tongue normal and mucous membranes are dry NECK: supple, no nuchal rigidity, no adenopathy, non-tender LUNGS: Clear to auscultation. Normal chest wall mechanics HEART: no murmurs, S1 normal and S2 normal ABDOMEN: abdomen soft, diffusely tender, normo-active bowel sounds. UPPER EXTREMITIES: upper extremities are grossly normal. LOWER EXTREMITIES: No pitting edema. NEURO EXAM: Normal sensorium, cranial nerves II-XII grossly intact, normal speech, no gross weakness of arms, no gross weakness of legs. MEDICAL DECISION MAKING: Patient is an 85-year-old female with metastatic colon cancer with 2 previous stents in the colon who presents the ER for severe abdominal pain. Upon presentation she is found to be hypothermic. IV was established blood work was obtained. Labs show a leukocytosis of 21,000. Anemia at 9.3 down from 11. BMP with slightly elevated chloride. LFTs bilirubin was unremarkable. Urine was contaminated with multiple epithelial cells. CT abdomen pelvis showed no acute pathology which was new. Patient and family were updated bedside. They are given IV fluids and IV cefepime and updated and admitted to the hospitalist for further work-up. Discussed with Dr. Fausto Odell and Blanco from not any [facility] service. Triage Nursing notes reviewed. Limited review of prior medical records performed Vital Signs: reviewed and remarkable for hypertensive and hypothermic Differential diagnosis: Differential diagnoses includes but is not limited to gastritis, peptic ulcer disease, GERD, gallbladder disease, pancreatitis, small bowel obstruction, acute coronary syndrome, pericarditis, ischemic bowel, irritable bowel disease, irritable bowel syndrome, appendicitis, diverticulitis, malignancy, hernia, urinary tract infection, torsion, [/ectopic (if female)], perforation, trauma, infectious. ER treatment provided: See below Diagnostics interpreted by me: ECG: Sinus rhythm rate 84 Left axis T wave inversion in the inferior leads Poor baseline in V4 and V5 QTC 427 No significant change from August 23 Cardiac Monitoring: An order was placed for continuous cardiac monitoring. The monitor shows a rate of 80 with sinus rhythm. Laboratory studies: As stated above and show below. Imaging studies: CT abdomen pelvis as discussed above Portable AP upright 1 view of the chest shows no focal infiltrate Consultation(s): As discussed above Procedures: none Critical Care: None Past Med/Surg History Medical History Anemia Glaucoma No pertinent past medical history Right bundle branch block Surgical History H/O bladder repair surgery 1964 H/O excision of mass 1956 removed from breast H/O eye surgery R eye 2019 History of removal of cyst ankle R cyst removed 1978 Hx of colonoscopy 2017 & 2020 S/P cholecystectomy 2000 Social History Smoking Status: Never smoker Hx Alcohol Use: No Hx Substance Use: No Preferred Language: Turkmen Communication Ability: Effective Visual Impairment: Limited Hearing Ability: Normal 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 Beliefs That Will Affect Care: None marital status: / Current Living Situation: Family current occupational status: retired Feels Safe at Home: Yes Assistive Devices: None Allergies Allergies Allergy/AdvReac Type Severity Reaction Status Date / Time amoxicillin Allergy Unknown Unknown Verified 09/02/20 14:51 brimonidine Allergy Unknown Unknown Verified 09/02/20 14:51 sulfamethizole Allergy Unknown Unknown Verified 09/02/20 14:51 Home Meds Home Medications Medication Instructions Recorded Confirmed Durezol 1 drp OPR 3XWK 03/14/19 09/02/20 Lumigan 1 drp OPR DAILY 03/14/19 09/02/20 Rhopressa 1 drp OPR PM 03/14/19 09/02/20 dorzolamide 1 drp OPL 3XWK 03/14/19 09/02/20 timolol maleate 1 drp OPR DAILY 03/14/19 09/02/20 Artificial Tears (PF) 1 drp OPHTHALMIC (EYE) DIRECTED 08/05/20 09/02/20 PRN cholecalciferol (vitamin D3) 50 mcg PO DAILY 08/05/20 09/02/20 [Vitamin D3] polyethylene glycol 3350 [Miralax] 17 g PO BID 09/02/20 09/02/20 Previous Rx's Medication Instructions Recorded potassium chloride [Klor-Con M10] 40 meq PO DAILY 30 Days #120 tab 08/26/20 Results & Data (ED) Vital Signs Vital Signs - 24 hr 09/02/20 11:26 09/02/20 12:26 09/02/20 12:30 Temperature 35.8 C L Temperature Source Temporal Artery Scan Pulse Rate 76 81 82 Pulse Rate [Left] Pulse Rate from SpO2 Sensor Pulse Rhythm [Left] Pulse Strength [Left] Respiratory Rate 18 23 Respiratory Effort / Characteristics Spontaneous Respiratory Depth Blood Pressure 174/78 H Blood Pressure [Left Arm] Blood Pressure Mean 110 Blood Pressure Mean [Left Arm] Blood Pressure Position Sitting Pulse Oximetry 97 Oxygen Delivery Method Room Air Sepsis Recent Fever Within 48 Hours No Sepsis New/Unexplained Change in Mental Status No Sepsis Action Taken by Nursing No Action Required 09/02/20 12:40 09/02/20 12:50 09/02/20 13:00 Temperature Temperature Source Pulse Rate 84 83 84 Pulse Rate [Left] Pulse Rate from SpO2 Sensor Pulse Rhythm [Left] Pulse Strength [Left] Respiratory Rate Respiratory Effort / Characteristics Respiratory Depth Blood Pressure Blood Pressure [Left Arm] Blood Pressure Mean Blood Pressure Mean [Left Arm] Blood Pressure Position Pulse Oximetry Oxygen Delivery Method Sepsis Recent Fever Within 48 Hours Sepsis New/Unexplained Change in Mental Status Sepsis Action Taken by Nursing 09/02/20 13:10 09/02/20 13:20 09/02/20 13:30 Temperature Temperature Source Pulse Rate 83 83 85 Pulse Rate [Left] Pulse Rate from SpO2 Sensor Pulse Rhythm [Left] Pulse Strength [Left] Respiratory Rate 24 Respiratory Effort / Characteristics Respiratory Depth Blood Pressure Blood Pressure [Left Arm] Blood Pressure Mean Blood Pressure Mean [Left Arm] Blood Pressure Position Pulse Oximetry Oxygen Delivery Method Sepsis Recent Fever Within 48 Hours Sepsis New/Unexplained Change in Mental Status Sepsis Action Taken by Nursing 09/02/20 13:48 09/02/20 13:50 09/02/20 13:51 Temperature Temperature Source Pulse Rate 92 H 90 90 Pulse Rate [Left] Pulse Rate from SpO2 Sensor 92 H 91 H 90 Pulse Rhythm [Left] Pulse Strength [Left] Respiratory Rate Respiratory Effort / Characteristics Respiratory Depth Blood Pressure 143/83 H Blood Pressure [Left Arm] Blood Pressure Mean 103 Blood Pressure Mean [Left Arm] Blood Pressure Position Pulse Oximetry 92 92 92 Oxygen Delivery Method Sepsis Recent Fever Within 48 Hours Sepsis New/Unexplained Change in Mental Status Sepsis Action Taken by Nursing 09/02/20 13:56 09/02/20 14:07 09/02/20 14:10 Temperature Temperature Source Pulse Rate 96 H 85 Pulse Rate [Left] 88 Pulse Rate from SpO2 Sensor Pulse Rhythm [Left] Regular Pulse Strength [Left] Normal Respiratory Rate 18 Respiratory Effort / Characteristics Non-Labored Spontaneous Respiratory Depth Normal Blood Pressure Blood Pressure [Left Arm] 143/83 H Blood Pressure Mean Blood Pressure Mean [Left Arm] 103 Blood Pressure Position Pulse Oximetry 94 Oxygen Delivery Method Room Air Sepsis Recent Fever Within 48 Hours Sepsis New/Unexplained Change in Mental Status Sepsis Action Taken by Nursing 09/02/20 14:20 09/02/20 14:30 09/02/20 14:40 Temperature Temperature Source Pulse Rate 84 85 84 Pulse Rate [Left] Pulse Rate from SpO2 Sensor Pulse Rhythm [Left] Pulse Strength [Left] Respiratory Rate Respiratory Effort / Characteristics Respiratory Depth Blood Pressure Blood Pressure [Left Arm] Blood Pressure Mean Blood Pressure Mean [Left Arm] Blood Pressure Position Pulse Oximetry Oxygen Delivery Method Sepsis Recent Fever Within 48 Hours Sepsis New/Unexplained Change in Mental Status Sepsis Action Taken by Nursing 09/02/20 14:50 09/02/20 15:00 09/02/20 16:26 Temperature 37.4 C Temperature Source Oral Pulse Rate 85 86 Pulse Rate [Left] 84 Pulse Rate from SpO2 Sensor Pulse Rhythm [Left] Pulse Strength [Left] Respiratory Rate 24 18 Respiratory Effort / Characteristics Respiratory Depth Blood Pressure Blood Pressure [Left Arm] 133/75 Blood Pressure Mean Blood Pressure Mean [Left Arm] 94 Blood Pressure Position Pulse Oximetry 94 Oxygen Delivery Method Room Air Sepsis Recent Fever Within 48 Hours Sepsis New/Unexplained Change in Mental Status Sepsis Action Taken by Nursing Laboratory Data Result diagrams: 09/02/20 13:00 09/02/20 13:00 Lab Results 09/02/20 09/02/20 09/02/20 Range/Units 12:20 13:00 13:00 WBC 21.20 H (4.8-10.8) K/uL RBC 2.93 L (4.2-5.4) M/uL Hgb 9.3 L (12.0-16.0) g/dL POC Hgb (12.0-16.0) g/dl Hct 28.2 L (37-47) % POC Hct (37-47) % MCV 96.2 (80-100) fL MCH 31.7 (25-34) pg MCHC 33.0 (32-36) g/dL RDW Std Deviation 55.0 H (36.4-46.3) fL RDW Coeff of Shane 15.6 H (11.5-14.5) % Plt Count 536 H (130-400) K/uL MPV 9.2 (7.4-10.4) fL Immature Gran % (Auto) 0.5 % Neut % (Auto) 88.5 % Lymph % (Auto) 5.3 % Patrick % (Auto) 5.7 % Eos % (Auto) 0.0 % Baso % (Auto) 0.0 % Neut # (Auto) 18.75 H (1.4-6.5) K/uL Lymph # (Auto) 1.12 L (1.2-3.4) K/uL Patrick # (Auto) 1.21 H (0.11-0.59) K/uL Eos # (Auto) 0.01 (0-0.5) K/uL Baso # (Auto) 0.01 (0-0.2) K/uL Immature Gran # (Auto) 0.10 H (0.00-0.02) K/uL POC Sodium (135-144) mmol/L Sodium 142 (136-145) mmol/L POC Potassium (3.3-5.0) mmol/L Potassium 4.1 (3.5-5.1) mmol/L POC Chloride (101-112) mmol/L Chloride 110 H (98-107) mmol/L Carbon Dioxide 27 (21-32) mmol/L POC Total CO2 (24-31) mmol/L Anion Gap 5.0 (3-11) POC Anion Gap (16-25) mmol/L POC BUN (7-18) mg/dl BUN 8 (7-18) mg/dl Creatinine 0.66 (0.6-1.2) mg/dl POC Creatinine (0.6-1.3) mg/dl Est Cr Clr Drug Dosing 51.1 ml/min Est GFR ( Amer) 94.7 Est GFR (Non-Af Amer) 81.7 BUN/Creatinine Ratio 12.5 (10-20) Glucose 107 H (70-99) mg/dl POC Glucose (other) (70-99) mg/dl Calcium 8.4 L (8.5-10.1) mg/dl POC Ioniz Calcium Xavi (1.12-1.32) mmol/l Total Bilirubin 0.8 (0.2-1) mg/dl AST 40 H (15-37) U/L ALT 14 (12-78) U/L Alkaline Phosphatase 204 H (45-117) U/L Total Protein 6.8 (6.4-8.2) gm/dl Albumin 2.6 L (3.4-5.0) gm/dl Globulin 4.2 H (2.5-4.0) gm/dl Albumin/Globulin Ratio 0.6 L (0.9-2) Urine Color Dark Yellow Urine Appearance Cloudy A (Clear) Urine pH 5.0 (4.5-7.5) Ur Specific [place] 1.019 (1.000-1.030) Urine Protein Negative (Negative) Urine Glucose (UA) Negative (Negative) Urine Ketones Negative (Negative) Urine Blood Trace H (Negative) Urine Nitrite Negative (Negative) Urine Bilirubin Negative (Negative) Urine Urobilinogen Negative (Negative) Ur Leukocyte Esterase Trace H (Negative) Urine WBC (Auto) 5-10 H (0-5) /hpf Urine RBC (Auto) 0-4 (0-4) /hpf U Hyaline Cast (Auto) 0 (0-5) /lpf U Epithel Cells (Auto) >30 H (0-5) /lpf Urine Bacteria (Auto) 3+ H (Negative) COVID-19 Eval Order SARS-CoV-2, RNA, NAAT (NEGATIVE) 09/02/20 09/02/20 09/02/20 Range/Units 13:11 14:22 14:22 WBC (4.8-10.8) K/uL RBC (4.2-5.4) M/uL Hgb (12.0-16.0) g/dL POC Hgb 16.3 H (12.0-16.0) g/dl Hct (37-47) % POC Hct 48 H (37-47) % MCV (80-100) fL MCH (25-34) pg MCHC (32-36) g/dL RDW Std Deviation (36.4-46.3) fL RDW Coeff of Shane (11.5-14.5) % Plt Count (130-400) K/uL MPV (7.4-10.4) fL Immature Gran % (Auto) % Neut % (Auto) % Lymph % (Auto) % Patrick % (Auto) % Eos % (Auto) % Baso % (Auto) % Neut # (Auto) (1.4-6.5) K/uL Lymph # (Auto) (1.2-3.4) K/uL Patrick # (Auto) (0.11-0.59) K/uL Eos # (Auto) (0-0.5) K/uL Baso # (Auto) (0-0.2) K/uL Immature Gran # (Auto) (0.00-0.02) K/uL POC Sodium 140 (135-144) mmol/L Sodium (136-145) mmol/L POC Potassium 4.0 (3.3-5.0) mmol/L Potassium (3.5-5.1) mmol/L POC Chloride 103 (101-112) mmol/L Chloride (98-107) mmol/L Carbon Dioxide (21-32) mmol/L POC Total CO2 26 (24-31) mmol/L Anion Gap (3-11) POC Anion Gap 17.0 (16-25) mmol/L POC BUN 8 (7-18) mg/dl BUN (7-18) mg/dl Creatinine (0.6-1.2) mg/dl POC Creatinine 0.5 L (0.6-1.3) mg/dl Est Cr Clr Drug Dosing ml/min Est GFR ( Amer) Est GFR (Non-Af Amer) BUN/Creatinine Ratio (10-20) Glucose (70-99) mg/dl POC Glucose (other) 109 H (70-99) mg/dl Calcium (8.5-10.1) mg/dl POC Ioniz Calcium Xavi 1.15 (1.12-1.32) mmol/l Total Bilirubin (0.2-1) mg/dl AST (15-37) U/L ALT (12-78) U/L Alkaline Phosphatase (45-117) U/L Total Protein (6.4-8.2) gm/dl Albumin (3.4-5.0) gm/dl Globulin (2.5-4.0) gm/dl Albumin/Globulin Ratio (0.9-2) Urine Color Urine Appearance (Clear) Urine pH (4.5-7.5) Ur Specific [place] (1.000-1.030) Urine Protein (Negative) Urine Glucose (UA) (Negative) Urine Ketones (Negative) Urine Blood (Negative) Urine Nitrite (Negative) Urine Bilirubin (Negative) Urine Urobilinogen (Negative) Ur Leukocyte Esterase (Negative) Urine WBC (Auto) (0-5) /hpf Urine RBC (Auto) (0-4) /hpf U Hyaline Cast (Auto) (0-5) /lpf U Epithel Cells (Auto) (0-5) /lpf Urine Bacteria (Auto) (Negative) COVID-19 Eval Order Covid19 IDNow [facility] SARS-CoV-2, RNA, NAAT NEGATIVE (NEGATIVE) Administered Medications Discontinued Medications Sodium Chloride (Nss 1000ml) 1,000 mls @ 999 mls/hr IV .Q1H1M ONE Stop: 09/02/20 13:41 Last Infusion: 09/02/20 15:56 Dose: 0 mls/hr Documented by: [id number] Admin: 09/02/20 13:56 Dose: 999 mls/hr Documented by: [id number] Cefepime HCl (Maxipime) 2,000 mg in 20 mls @ 5 mls/min IV NOW STA; Protocol Stop: 09/02/20 12:55 Last Admin: 09/02/20 13:56 Dose: 5 mls/min Documented by: [id number] Ioversol (Ioversol 100ml) 95 ml IV ONCE ONE Stop: 09/02/20 13:43 Last Admin: 09/02/20 13:42 Dose: 95 ml Documented by: [id number] Ondansetron HCl (Ondansetron Inj 2 Mg/Ml 2 Ml Vial) 4 mg IV NOW STA Stop: 09/02/20 12:42 Last Admin: 09/02/20 13:56 Dose: 4 mg Documented by: [id number] Discharge Plan Visit Data Chief Complaint: Abdominal Pain Stated Complaint: POSSIBLE BOWEL BLOCKAGE - ABD PAIN - COLON CA ED Provider: Blanco Napoles Discharge Problem: Abdominal pain, Colonic mass, Metastatic adenocarcinoma, Colon cancer, Hypothermia, Leukocytosis, Anemia Forms Stand Alone Forms: [facility] [employer] Prescriptions Prescriptions: No Action timolol maleate 0.5 % drops 1 drp OPR DAILY RF: 0 dorzolamide 2 % drops 1 drp OPL 3XWK RF: 0 Durezol 0.05 % drops 1 drp OPR 3XWK RF: 0 Lumigan 0.01 % drops 1 drp OPR DAILY RF: 0 Rhopressa 0.02 % Drops 1 drp OPR PM RF: 0 cholecalciferol (vitamin D3) [Vitamin D3] 50 mcg (2,000 unit) Capsule 50 mcg PO DAILY RF: 0 Artificial Tears (PF) Dropperette 1 drp OPHTHALMIC (EYE) DIRECTED PRN (Reason: Dry Eyes) RF: 0 potassium chloride [Klor-Con M10] 10 mEq Tablet,Er Particles/Crystals 40 meq PO DAILY 30 Days Qty: 120 RF: 0 polyethylene glycol 3350 [Miralax] 17 gram/dose powder 17 g PO BID RF: 0 Discharge Problem: Abdominal pain Qualifiers: Abdominal location: unspecified location Qualified Code(s): R10.9 - Unspecified abdominal pain Colon cancer Qualifiers: Colon location: unspecified part of colon Qualified Code(s): C18.9 - Malignant neoplasm of colon, unspecified Hypothermia Qualifiers: Encounter type: initial encounter Qualified Code(s): T68.XXXA - Hypothermia, initial encounter Leukocytosis Qualifiers: Leukocytosis type: unspecified Qualified Code(s): D72.829 - Elevated white blood cell count, unspecified Anemia Qualifiers: Anemia type: unspecified type Qualified Code(s): D64.9 - Anemia, unspecified
[2020-09-02] MEDS ORDERED: CEFEPIME 2,000 MG/20 ML VIAL IV STA (12:52)
[2020-09-02 13:11] LABS: Cast Urine Automated 0 /lpf (0-5); RBC Urine Automated 0-4 /hpf (0-4)
[2020-09-02 13:22] LABS: Basophils # (auto) 0.01 K/uL (0-0.2); Eosinophils # (auto) 0.01 K/uL (0-0.5); Hematocrit (blood only) 28.2 % (37-47); Hemoglobin 9.3 g/dL (12.0-16.0); Immature Granulocytes % (auto) 0.5 %; Lymphocytes # (auto) 1.12 K/uL (1.2-3.4); Lymphocytes % (auto) 5.3 %; Mean Corpuscular Hemoglobin 31.7 pg (25-34); Mean Corpuscular Volume 96.2 fL (80-100); Mean Platelet Volume 9.2 fL (7.4-10.4); Monocytes # (auto) 1.21 K/uL (0.11-0.59); Monocytes % (auto) 5.7 %; Neutrophils # (auto) 18.75 K/uL (1.4-6.5); Neutrophils % (auto) 88.5 %; Platelet Count 536 K/uL (130-400); RDW Coefficient of Variation 15.6 % (11.5-14.5); Red Blood Count 2.93 M/uL (4.2-5.4)
[2020-09-02 13:24] LABS: iSTAT Creatinine 0.5 mg/dl (0.6-1.3); iSTAT Hemoglobin 16.3 g/dl (12.0-16.0); iSTAT Ionized Calcium 1.15 mmol/l (1.12-1.32)
[2020-09-02 13:38] LABS: Albumin Level 2.6 gm/dl (3.4-5.0); BUN Creatinine Ratio 12.5 (10-20); Calcium 8.4 mg/dl (8.5-10.1); Creatinine Clr Calc Pharmacy 51.1 ml/min; Est GFR (African American) 94.7; Est GFR (Non-African American) 81.7; Potassium 4.1 mmol/L (3.5-5.1)
[2020-09-02 13:40] LABS: Albumin Globulin Ratio 0.6 (0.9-2); Bilirubin,Total 0.8 mg/dl (0.2-1); Globulin 4.2 gm/dl (2.5-4.0); Total Protein 6.8 gm/dl (6.4-8.2)
[2020-09-02] MEDS ORDERED: OPTIRAY 320 100ml IV ONE (13:42)
--- NOTE | 2020-09-02 13:58 | CT Scan Report ---
CT SCAN OF THE ABDOMEN AND PELVIS WITH IV CONTRAST CLINICAL HISTORY: Generalized abdominal pain. COMPARISON STUDY: Abdominal CT dated 08/23/2020. TECHNIQUE: Following the IV administration of 95 cc of Optiray 320, CT scan of the abdomen and pelvi s is performed from the lung bases to the proximal femora. Images are reviewed in the axial, sagittal , and coronal planes. IV contrast was administered without complication. A dose lowering technique wa s utilized adhering to the principles of ALARA. CT DOSE: 528.91 mGycm FINDINGS: Lung bases: The heart is normal in size and without pericardial effusion. The coronary arteries and m itral annulus are densely calcified. There is trace left pleural effusion with associated atelectasis . A 5 mm pulmonary nodule at the right lung base is seen on image #74. There is a moderate hiatal her jose. Liver: The contrast-enhanced liver is normal in size, contour, and attenuation. There is no intrahepa tic biliary ductal dilatation. The hepatic veins and portal veins are patent. Findings multifocal hep atic metastatic disease are similar to previous. Lesions are present in all hepatic segments and joann ure up to 3.7 cm. Gallbladder: Surgically absent noting clips in the gallbladder fossa. Spleen: A normal spleen is not identified. Pancreas: Unremarkable. Adrenal glands: Unremarkable. Kidneys: The contrast enhanced kidneys demonstrate cortical atrophy and are without hydronephrosis. T he kidneys enhance symmetrically. Abdominal vasculature: The abdominal aorta is normal in course and caliber noting moderate to advance d atherosclerotic calcification. Bowel: A stent is present in the rectosigmoid colon. This is new from previous, and this traverses an irregular mass lesion. There is no bowel obstruction. There is mild colonic diverticulosis without C T evidence of acute diverticulitis. Fecal retention is noted throughout the right colon The appendix is not identified and reported surgically absent. Enlarged soft tissue nodules above the rectosigmoi d colon are unchanged and measure up to 1.6 cm. Peritoneum: There is no intraperitoneal free air. Trace free fluid is seen in the pelvis. Lymphadenopathy: None. Pelvic viscera: The bladder and ureters are grossly unremarkable. Bilateral adnexal cysts are unchang ed measuring up to 3.7 cm. Skeletal structures: The skeletal structures are osteopenic. There is mild to moderate lumbosacral sp ondylosis. A chronic compression deformity is noted in T8. No lytic or blastic lesions are seen. Tarl ov cysts are noted in the sacrum. IMPRESSION: 1. There are no acute infectious or inflammatory findings in the abdomen or pelvis. 2. A stent in the rectosigmoid colon is new from previous, traversing a large colonic mass lesion. 3. Moderate fecal retention is noted in the colon with no evidence of obstruction. 4. Hepatic metastatic disease is unchanged from previous. 5. Enlarged soft tissue implants around the rectosigmoid colon are unchanged and consistent with loca l metastases. 6. A 5 mm pulmonary nodule at the right lung base is pathologically indeterminant. 7. Cardiomegaly and small left pleural effusion. 8. Trace free fluid is seen in the pelvis. 9. Additional findings as above. ACT 112: Negative or not required by law. Electronically signed by: Dony Shannon M.D. 09/02/2020 1:57 PM
--- NOTE | 2020-09-02 14:43 | XRay Report ---
XR chest 1V portable HISTORY: sepsis COMPARISON: 08/26/2020. FINDINGS: A right jugular Port-A-Cath terminates in the SVC. This is unchanged in position. There are low lung volumes. No pneumothorax. Stable blunting left lateral costophrenic sulcus. The heart is mi ldly enlarged. There is a tortuous thoracic aorta, unchanged. There is mild central pulmonary vascula r congestion without overt edema. This remains unchanged. Prior cholecystectomy. IMPRESSION: Stable cardiomegaly with mild central pulmonary vascular congestion and a trace left pleural effusion . ACT 112: Negative or not required by law. Electronically signed by: Pelon Recio M.D. 09/02/2020 2:41 PM
--- NOTE | 2020-09-02 18:55 | Medical Student H&P ---
Date of Service September 02, 2020 Assessment & Plan (1) Sepsis: Ms. Pettit is an 85yo woman with PMHx of metastatic colon adenocarcinoma presenting with primarily LLQ abdominal pain, chills, and diarrhea. Hx of several recent admissions for bacterial colitis and large bowel obstruction. Recent GI stenting and Mediport placement with upcoming chemo. EKG showed NSR with no RBBB present compared to previous. CXR showed stable cardiomegaly with mild central pulmonary vascular congestion. Noncontrast CT A/P showed no acute process. U/A shows cloudy urine, trace leuk est, 5-10 WBC, bacteria 3+, although notably epithelial cells 30+. No urinary Sx makes UTI less likely. Sepsis -Sepsis workup for possible infection sources. WBC on discharge 08/26 was 13, increased to 21.2 today with left shift. -Obtain U/A, UCx, BCx (notably not able to be collected until after Abx started), lactate, procalcitonin, CRP to work up. -Abdominal pain makes bacterial colitis a likely source. Begin cefepime IV for empiric antibiotic coverage awaiting workup. FEN: 1/2 normal saline fluids 100mL/hr in addition to encouraging PO fluids, monitor CBC and BMP, regular diet Code status: Full code DVT PPx: Enoxaparin 40mg SQ Disposition: Remain inpatient to monitor Sx with antibotic therapy and awaiting sepsis workup. (2) Abdominal pain: -Abdominal pain makes bacterial colitis a likely source. CT showed no acute process, but notably was noncontrast and on the background of colon cancer so this does not rule out intestinal source. -Start empiric cefepime IV for coverage of enteric bacteria. -Possible that abdominal pain may be waxing and waning of baseline cancer pain, but this is a diagnosis of exclusion as we pursue an infection source. Baseline WBC last week 13, but increased to 21 on admission making infection a high likelihood, especially in an immunocompromised pt. -Given worsening diarrhea in addition to abdominal pain and recent admissions with antibiotic use, C diff colitis is possible as well. Formed stool found on CT makes this less likely. If pt does not improve on Abx over the next few days, consider C diff workup. Abdominal location: unspecified location Qualified Code(s): R10.9 - Unspecified abdominal pain (3) Diarrhea: -Baseline diarrhea for several months likely secondary to colon adeno carcinoma. Pt also on Miralax re: cancer which likely exacerbates loose stools. -Pt states diarrhea somewhat worse lately, with 10+ stools per day this week. Continue to monitor. (4) Metastatic adenocarcinoma: -Pt follows with Dr. Taylor. Has gotten a colonic stent. Got a Mediport last week for chemo with plan to start 09/03. Hold chemo while inpatient. History of Present Illness Primary Care Provider: Maximo Madden Ms. Pettit is an 85 year old woman with past medical history of metastatic colon cancer to the liver, bacterial colitis, large bowel obstruction who presented to the ED today with abdominal pain and chills. She had just been discharged from the hospital on 08/26 with a new colon stent and a Mediport, and has had several hospitalizations over the past few months. She states she had felt relatively well the past few days with some baseline abdominal discomfort and diarrhea which has been present since June. Today she felt a sudden increase in her abdominal pain, especially in her lower abdomen, which was colicky in nature and exacerbated by movement or touching it. She states she also had chills and shaking. Her daughter Juany brought her to the ED, and in the few hours since arriving she has felt noticeable improvement, with the pain decreasing from 8/10 to 3/10 and the chills and shaking mostly gone. She did have a large, watery BM in the ED and is unsure if this occurred before or after her pain decreased. She has been experiencing diarrhea since late June, which has increased somewhat since her discharge from the hospital last week. Recently she has been having 10+ loose stools per day. She has been taking Miralax daily for her colon cancer. She was set to start chemotherapy with Dr. Taylor tomorrow. Allergies Allergy/AdvReac Type Severity Reaction Status Date / Time amoxicillin Allergy Unknown Unknown Verified 09/02/20 14:51 brimonidine Allergy Unknown Unknown Verified 09/02/20 14:51 sulfamethizole Allergy Unknown Unknown Verified 09/02/20 14:51 Home Medications Medication Instructions Recorded Confirmed Type Durezol 1 drp OPR 3XWK 03/14/19 09/02/20 History Lumigan 1 drp OPR DAILY 03/14/19 09/02/20 History Rhopressa 1 drp OPR PM 03/14/19 09/02/20 History dorzolamide 1 drp OPL 3XWK 03/14/19 09/02/20 History timolol maleate 1 drp OPR DAILY 03/14/19 09/02/20 History Artificial Tears (PF) 1 drp OPHTHALMIC (EYE) DIRECTED 08/05/20 09/02/20 History PRN cholecalciferol (vitamin D3) 50 mcg PO DAILY 08/05/20 09/02/20 History [Vitamin D3] potassium chloride [Klor-Con M10] 40 meq PO DAILY 30 Days #120 tab 08/26/20 09/02/20 Rx polyethylene glycol 3350 [Miralax] 17 g PO BID 09/02/20 09/02/20 History Past Med/Surg History Medical History (Updated 09/02/20 @ 18:36 by Harry Ford) Abdominal pain Anemia Glaucoma Large bowel obstruction No pertinent past medical history Right bundle branch block Surgical History H/O bladder repair surgery 1964 H/O excision of mass 1956 removed from breast H/O eye surgery R eye 2019 History of appendectomy History of removal of cyst ankle R cyst removed 1978 Hx of colonoscopy 2017 & 2020 S/P cholecystectomy 2000 Social History Smoking Status: Never smoker Hx Alcohol Use: No Hx Substance Use: No Preferred Language: Serbian Communication Ability: Effective Visual Impairment: Limited Hearing Ability: Normal Precision Farming Coordinator Required: No Beliefs That Will Affect Care: None marital status: / Current Living Situation: Family current occupational status: retired Feels Safe at Home: Yes Assistive Devices: None Review of Systems All systems reviewed & are unremarkable except as noted in HPI & below + chills and + fatigue; no fever, no sweats and no weakness + hearing loss (chronic, R>L); no dizziness no cough and no dyspnea no chest pain, no dyspnea, no palpitations, no syncope, no edema and no calf pain + abdominal pain and + diarrhea/loose stools; no nausea, no vomiting and no constipation no dysuria no rash no dizziness, no headache(s) and no confusion Physical Exam Constitutional: well developed, well nourished, cooperative and comfortable; no acute distress laying on hospital bed, asleep under the blankets when I arrived. ENMT: external ear and nose normal, oropharynx normal Respiratory: normal respiratory effort, lungs clear to auscultation Auscultation: no rales, no rhonchi and no wheezes Cardiovascular: RRR, no murmur, no edema Heart Sounds: normal S1 and normal S2; no gallop, no murmur and no cardiac rub Gastrointestinal (Abdomen): Inspection/Auscultation: abdomen normal to inspection and normal bowel sounds; abdomen not distended Percussion/Palpation: + abdomen tender (LLQ>RLQ>Upper quadrants, mod tender to palpation) and abdomen soft; no guarding, abdomen not rigid, no hepatosplenomegaly and no abdominal mass Musculoskeletal: no cyanosis or clubbing, extremities motor strength 5/5 Skin: no rashes, warm and dry Neurologic: CN's II-XI intact bilaterally Psychiatric: A+Ox3, euthymic affect Eye Contact: good eye contact Results & Data ([facility]) Vital Signs (Past 12 Hours) Vital Signs Temp Pulse Pulse Resp BP BP Pulse Ox 09/02/20 16:26 37.4 C 84 18 133/75 94 09/02/20 15:00 86 24 09/02/20 14:50 85 09/02/20 14:40 84 09/02/20 14:30 85 09/02/20 14:20 84 09/02/20 14:10 85 09/02/20 14:07 96 H 09/02/20 13:56 88 18 143/83 H 94 09/02/20 13:51 90 143/83 H 92 09/02/20 13:50 90 92 09/02/20 13:48 92 H 92 09/02/20 13:30 85 24 09/02/20 13:20 83 09/02/20 13:10 83 09/02/20 13:00 84 09/02/20 12:50 83 09/02/20 12:40 84 09/02/20 12:30 82 09/02/20 12:26 81 23 09/02/20 11:26 35.8 C L 76 18 174/78 H 97 Code Status & VTE Plan VTE Prophylaxis Plan VTE Prophylaxis will be ordered: Yes Supervising Attestation I personally examined the patient and verified all steele points of history and exam, discussed case, and agree with decision making with Liliana. Abdominal pain started earlier today, fairly abrupt onset, diffuse, if she has to focus at its left lower and right lower quadrant/suprapubic. She has absolutely no urinary symptoms. She does have diarrhea up to about 10 times a day which has been ongoing for quite a while. No chest pain no shortness of breath no cough no skin rashes Vitals noted, in general she is very fatigued may be mildly uncomfortable appearing. HEENT normocephalic atraumatic mucous membranes moist. Breathing unlabored no accessory muscle use good effort. Skin shows no rashes no pallor or icterus. Abdomen is mildly distended although not nearly as much as the last I saw hernesto was when her stent had migratedright lower quadrant tenderness may be mild left lower quadrant tenderness, a little bit of voluntary guarding right lower quadrant none left-sided, and a bit of periumbilical tenderness with some voluntary guarding. No rebound no rigidity. Extremities show no cyanosis or clubbing. Skin shows no rashes no pallor or icterus. Sepsisher septic picture is not entirely clear as far as the etiology. Most likely it is a form of infectious colitisher CT did not have oral contrast, making it reasonably nondiagnostic in this respect, and given her colon cancer, stenting, and lower abdominal pain with fairly abrupt onset, everything would fit with this. We discussed repeat CT with oral contrast versus empiric treatment, and at this time I favor empiric treatmentparticularly because a CT with oral contrast may still be somewhat nondiagnostic given all of the anatomic abnormalities of her colon. Patient/daughter agree with this approach. We will start ceftriaxone and Flagyl and follow. Also possible that she could have had bacterial translocation/spontaneous bacteremia given the breach of her colon from the cancer, blood cultures were ordered, but unfortunately I believe they were done after she was given a dose of antibiotics. Follow clinically, follow cultures. Given her diarrhea and septic picture, C. difficile certainly comes to mind, although clinically the story does not seem to fit quite as much as other etiologies. Further given that she has been in and out of the hospital and on antibiotics, the specter of a false positive C. difficile test would be reasonably high, and certainly there is good evidence that her diarrhea (see below) is laxative induced. For this we will follow her closely and empirically and if she is not improving from an infection and diarrhea standpoint over the next 24 to 48 hours, then C. difficile testing would be more likely to be a true positive (because it would fit the clinical picture more). Lastly there is of course concern that this could be a septic picture simply related to her cancer, but I believe this should be a diagnosis of exclusion. To that end I did add procalcitonin and CRP levels, I certainly expect him to be elevated right now, but rate of change along with her clinical picture could prove useful in the coming days if her situation is still somewhat difficult to discern Diarrheasee above as it relates to the possibility of C. difficile, but more than anything I suspect she has a bad situation of retained feces and overflow incontinence. She has the bottleneck in her colon and stenting, and certainly needs a degree of stool softener to keep this moving through and protect against large bowel obstruction, but she also shows retained feces in her right colon, which is probably where the overflow is coming. She also has symptoms consistent with gastrocolic reflex, suggesting her "stretch recoil" mechanism is probably constantly stimulated. For now we will cautiously add fiber to her MiraLAXthe MiraLAX to continue to keep things soft and pasty with the ability to get through her area of concern, and the fiber to add bulk to hopefully help move things forward more. Follow closely DVT prophylaxisLovenox Otherwise as above
--- NOTE | 2020-09-02 19:56 | Billing Data ---
Date of Service September 02, 2020 Coding Level of Care Code 74597 Initial Inpt Care Lvl 3
[2020-09-02] MEDS ORDERED: ONDANSETRON INJ 2 MG/ML 2 ML VIAL IV PRN (20:00)
[2020-09-02] MEDS ORDERED: ALUMINUM/MAGNESIUM SUSP 30 ML UDC PO PRN (20:00)
[2020-09-02] MEDS ORDERED: POLYETHYLENE (MIRALAX) 17 GM PACK PO PRN (20:00)
[2020-09-02] MEDS ORDERED: ACETAMINOPHEN 325 MG TAB PO PRN (20:00)
[2020-09-02] MEDS ORDERED: ARTIFICIAL TEARS OP PRN (20:05)
[2020-09-02] MEDS ORDERED: ENOXAPARIN INJ 30 MG/0.3 ML SYR SQ SCH (21:00)
[2020-09-02] MEDS: cefTRIAXone SODIUM 1,000 MG in DEXTROSE 5% 50 ML IV SCH (21:22)
[2020-09-02] MEDS: PSYLLIUM 58.6% POWDER PACKET PO SCH (21:31)
[2020-09-02] MEDS: POLYETHYLENE (MIRALAX) 17 GM PACK PO SCH (21:31)
[2020-09-02] MEDS: D5W AND 1/2NSS + 20MEQ KCL 20 MEQ/1,000 ML BAG IV SCH (21:35)
[2020-09-02] MEDS: metroNIDAZOLE 500 MG/100 ML BAG IV SCH (21:42)
[2020-09-03] MEDS ORDERED: HEPARIN 100 UNIT/ML 5ML FLUSH FLUSH PRN (01:38)
[2020-09-03] MEDS: metroNIDAZOLE 500 MG/100 ML BAG IV SCH ×3 (05:05→20:28)
[2020-09-03 06:25] LABS: Basophils # (auto) 0.01 K/uL (0-0.2); Basophils % (auto) 0.1 %; Eosinophils # (auto) 0.03 K/uL (0-0.5); Eosinophils % (auto) 0.2 %; Hematocrit (blood only) 32.3 % (37-47); Hemoglobin 10.6 g/dL (12.0-16.0); Immature Granulocytes # (auto) 0.05 K/uL (0.00-0.02); Immature Granulocytes % (auto) 0.3 %; Lymphocytes % (auto) 11.7 %; Mean Corpuscular Hemoglobin 31.5 pg (25-34); Mean Corpuscular Hgb Conc 32.8 g/dL (32-36); Mean Corpuscular Volume 96.1 fL (80-100); Monocytes # (auto) 1.81 K/uL (0.11-0.59); Monocytes % (auto) 11.8 %; Neutrophils # (auto) 11.66 K/uL (1.4-6.5); Neutrophils % (auto) 75.9 %; Platelet Count 404 K/uL (130-400); RDW Standard Deviation 55.4 fL (36.4-46.3); Red Blood Count 3.36 M/uL (4.2-5.4); White Blood Count 15.36 K/uL (4.8-10.8)
--- NOTE | 2020-09-03 06:27 | Electrocardiogram Report ---
Test Reason : Blood Pressure : / mmHG Vent. Rate : 084 BPM Atrial Rate : 084 BPM P-R Int : 122 ms QRS Dur : 094 ms QT Int : 362 ms P-R-T Axes : 064 -28 -08 degrees QTc Int : 427 ms Normal sinus rhythm Nonspecific ST and T wave abnormality Abnormal ECG When compared with ECG of 23-AUG-2020 02:07, Right bundle branch block is no longer Present T wave inversion more evident in Inferior leads Confirmed by Lazaro Carmona ([id number]) on 09/03/2020 6:26:33 AM Referred By: PROTOCOL Confirmed By:Lazaro Carmona
[2020-09-03 07:06] LABS: BUN Creatinine Ratio 10.2 (10-20); Creatinine Clr Calc Pharmacy 56.4 ml/min; Est GFR (African American) 95.2; Est GFR (Non-African American) 82.1; Potassium 3.4 mmol/L (3.5-5.1)
[2020-09-03] MEDS: D5W AND 1/2NSS + 20MEQ KCL 20 MEQ/1,000 ML BAG IV SCH ×2 (07:52→17:56)
[2020-09-03] MEDS: POLYETHYLENE (MIRALAX) 17 GM PACK PO SCH ×2 (08:29→20:28)
[2020-09-03] MEDS: POTASSIUM CHLORIDE CRTAB 20 MEQ TABCR PO SCH (08:29)
[2020-09-03] MEDS: ENOXAPARIN INJ 40 MG/0.4 ML SYR SQ SCH (08:29)
[2020-09-03] MEDS: PSYLLIUM 58.6% POWDER PACKET PO SCH (08:30)
[2020-09-03] MEDS: TIMOLOL MALEATE 0.5% OP SOLN 5 ML BTL OPL SCH (08:32)
[2020-09-03] MEDS: CHOLECALCIFEROL 1,000 UNITS 25 MCG TAB PO SCH (08:32)
[2020-09-03] MEDS: DORZOLAMIDE HCL 2% OPH SOLN 10 ML BTL OPL SCH (08:32)
[2020-09-03] MEDS: DUREZOL OPR SCH (08:35)
[2020-09-03] MEDS ORDERED: TIMOLOL MALEATE 0.5% OP SOLN 5 ML BTL OPR SCH ×2 (09:00)
[2020-09-03] MEDS ORDERED: DUREZOL EXT SCH (09:00)
[2020-09-03] MEDS ORDERED: BIMATOPROST 0.01% OP SOLN 2.5 ML BTL OPR SCH (09:00)
[2020-09-03] MEDS ORDERED: POTASSIUM CHLORIDE CRTAB 20 MEQ TABCR PO STA (09:01)
--- NOTE | 2020-09-03 09:20 | Gastrointestinal Consultation ---
Date of Consultation September 03, 2020 Assessment & Plan (1) Colon cancer: Recommend daily Miralax. Soft/low fiber diet. No plan for GI procedures at this time. No GIi indication for antibiotics. Present on Admission?: Yes Supervising Physician Co-Signing Physician Notes Attg add: I interviewed and examined pt, reviewed chart and labs. Pt with met CRC, h/o recently placed colonic stent. CT shows stent in good position, with mild constipation; of note, no prox colon dilation. No evidence of colitis on imaging. On exam, she has mild discomfort in RLQ. No evidence of stent dysfunction. Please continue pt on LOW FIBER DIET - please avoid Metamucil supplements, as bulking agents may lead to stent occlusion. Continue Miralax. No evidnce of colitis by imaging/exam. It may be possible that she has bacterial translocation related to colonic malignancy. Defer need for abx to primary service. Will sign off, please re-consult as needed. History of Present Illness Reason for Consultation: Bowel obstruction Requesting Physician: Dr. Odell Attending Physician: Blanco Callaway DO History of Present Illness Ms. Taylor Pettit is an 85 yr old female pt of Dr. Madden who is post distant cholecystectomy and appendectomy but prior to recent dx of metastatic colon cancer earlier this month had an unremarkable PMH. She underwent colonoscopy on 08/23/20 with a large, completely obstructing sigmoid colon mass. Colon stent was placed during that procedure. Path confirmed colorectal adenocarcinoma. Imaging is consistent with liver mets. She was admitted yesterday with abd pain and distention. CT on arrival was suggestive of constipation but no obstruction. She had leukocytosis (21->15 on cefepime) and low temp at 35.8. Blood/urine cx negative thus far and no colitis on CT. She was given Miralax and has passed 4 BMs since yesterday. She is feeling much better - now with mild abdominal distention. She denies any fever, chills, sweats. No nausea or vomiting. No blood in BMs. Allergies Allergy/AdvReac Type Severity Reaction Status Date / Time amoxicillin Allergy Unknown Unknown Verified 09/02/20 14:51 brimonidine Allergy Unknown Unknown Verified 09/02/20 14:51 sulfamethizole Allergy Unknown Unknown Verified 09/02/20 14:51 Home Medications Medication Instructions Recorded Confirmed Type Durezol 1 drp OPR 3XWK 03/14/19 09/02/20 History Lumigan 1 drp OPR DAILY 03/14/19 09/02/20 History Rhopressa 1 drp OPR PM 03/14/19 09/02/20 History dorzolamide 1 drp OPL 3XWK 03/14/19 09/02/20 History timolol maleate 1 drp OPR DAILY 03/14/19 09/02/20 History Artificial Tears (PF) 1 drp OPHTHALMIC (EYE) DIRECTED 08/05/20 09/02/20 History PRN cholecalciferol (vitamin D3) 50 mcg PO DAILY 08/05/20 09/02/20 History [Vitamin D3] potassium chloride [Klor-Con M10] 40 meq PO DAILY 30 Days #120 tab 08/26/20 09/02/20 Rx polyethylene glycol 3350 [Miralax] 17 g PO BID 09/02/20 09/02/20 History Patient History Medical History (Updated 09/02/20 @ 18:36 by Harry Ford) Abdominal pain Anemia Glaucoma Large bowel obstruction No pertinent past medical history Right bundle branch block Surgical History H/O bladder repair surgery 1965 H/O excision of mass 1956 removed from breast H/O eye surgery R eye 2019 History of appendectomy History of removal of cyst ankle R cyst removed 1978 Hx of colonoscopy 2017 & 2020 S/P cholecystectomy 2000 Social History Smoking Status: Never smoker Hx Alcohol Use: No Hx Substance Use: No Preferred Language: Citizen Of [place] Communication Ability: Effective Visual Impairment: Limited Hearing Ability: Normal Financial Systems Manager Required: No Beliefs That Will Affect Care: None marital status: / Current Living Situation: Family current occupational status: retired Feels Safe at Home: Yes Assistive Devices: Walker Review of Systems Review of Systems: ROS: Gen: + weakness, + weight loss. No fevers, weight loss Eyes: No eye redness, or pain, no recent vision changes Resp: No SOB, no cough Cardio: No palpitations/irregular beats, no chest pain GI: + moderate abd pain and distention - improved since admission, still with mild pain. No nausea/vomiting : Denies pain on urination Skin: No jaundice, itching or new rashes Physical Exam Constitutional: + ill appearing, well groomed, cooperative and comfortable heard of hearing Eyes: PERRL, conjunctivae normal, anicteric sclerae ENMT: external ear and nose normal, oropharynx normal Neck: trachea midline, no thyromegaly Respiratory: normal respiratory effort, lungs clear to auscultation Cardiovascular: RRR, no murmur, no edema Gastrointestinal (Abdomen): Inspection/Auscultation: abdomen normal to inspection, + abdomen distended (minimal) and normal bowel sounds Percussion/Palpation: + abdomen tender (diffusely) and abdomen soft Skin: no rashes, warm and dry Neurologic: PERRL, EOMI, accommodation nl, no face palsy, no dysarthria Psychiatric: A+Ox3, euthymic affect Lymphatic: no cervical or axillary lymphadenopathy Results & Data ([facility]) Vital Signs (Past 12 Hours) Vital Signs Temp Pulse Resp BP Pulse Ox 09/03/20 07:09 36.6 C 69 16 120/70 95 09/02/20 22:05 36.5 C 73 16 134/[address] abd/pelvis on 09/02/20 with IV, no oral contrast: 1. There are no acute infectious or inflammatory findings in the abdomen or pelvis. 2. A stent in the rectosigmoid colon is new from previous, traversing a large colonic mass lesion. 3. Moderate fecal retention is noted in the colon with no evidence of obstruction. 4. Hepatic metastatic disease is unchanged from previous. 5. Enlarged soft tissue implants around the rectosigmoid colon are unchanged and consistent with local metastases. 6. A 5 mm pulmonary nodule at the right lung base is pathologically indeterminant. 7. Cardiomegaly and small left pleural effusion. 8. Trace free fluid is seen in the pelvis. 9. Additional findings as above. (1) Colon cancer Colon location: unspecified part of colon Qualified Code(s): C18.9 - Malignant neoplasm of colon, unspecified
--- NOTE | 2020-09-03 12:44 | Medical Student Progress Note ---
Date of Service September 03, 2020 Assessment & Plan (1) Sepsis: Ms. Pettit is an 85yo woman with PMHx of metastatic colon adenocarcinoma presenting with primarily LLQ abdominal pain, chills, and diarrhea. Hx of several recent admissions for bacterial colitis and large bowel obstruction. Recent GI stenting and Mediport placement with upcoming chemo planned. EKG showed NSR with no RBBB present compared to previous. CXR showed stable cardiomegaly with mild central pulmonary vascular congestion. Noncontrast CT A/P showed no acute process. U/A shows cloudy urine, trace leuk est, 5-10 WBC, bacteria 3+, although notably epithelial cells 30+. No urinary Sx makes UTI less likely. Sepsis -WBC improved today from 21.2 on admission to now 15.36, with a decreased immature granulocyte count from 0.1 to 0.05. CRP 8.76, procalcitonin 1.07. -U/A obtained, unlikely UTI. CXR obtained, unlikely PNA. Most likely source bacterial colitis in the context of metastatic colon cancer and therefore immunocompromised state. UCx and BCx pending. -Continue ceftriaxone and metronidazole for empiric coverage of enteric gram negatives and anaerobes, respectively. FEN: Continue D5W+1/2NS+20mEq KCl fluids 100mL/hr in addition to encouraging PO fluids, monitor CBC and BMP, regular diet Code status: DNR/DNI DVT PPx: Enoxaparin 40mg SQ Disposition: Remain inpatient to monitor Sx with antibotic therapy. If continual Sx improvement, likely discharge tomorrow. (2) Abdominal pain: -Abdominal pain makes bacterial colitis a likely source. CT showed no acute process, but notably was noncontrast and on the background of colon cancer so this does not rule out intestinal source. -Start empiric ceftriaxone and metronidazole IV for coverage of enteric bacteria. -Possible that abdominal pain may be waxing and waning of baseline cancer pain, but this is a diagnosis of exclusion as we pursue an infectious source. Baseline WBC last week 13, but increased to 21 on admission making infection a high likelihood, especially in an immunocompromised pt. WBC improving today. -Given worsening diarrhea in addition to abdominal pain and recent admissions with antibiotic use, C diff colitis is possible as well. Formed stool found on CT makes this less likely. Given Sx improvement on Abx, C diff workup not needed at this time. Abdominal location: unspecified location Qualified Code(s): R10.9 - Unspecified abdominal pain (3) Diarrhea: -Baseline diarrhea for several months likely secondary to colon adenocarcinoma. Pt also on Miralax re: cancer which likely exacerbates loose stools. GI recommends to continue Miralax. -Pt states diarrhea somewhat worse lately, with 10+ stools per day this week. Continue to monitor. -Added Metamucil 1 packet PO qAM to bulk stools a bit while still keeping them loose enough re: colon cancer. (4) Metastatic adenocarcinoma: -Pt follows with Dr. Taylor. Has gotten a colonic stent. Got a Mediport last week for chemo with original plan to start 09/03. Hold chemo while inpatient. Admission and Anticipated Discharge Date Admission Date: September 02, 2020 Supervising Attestation I personally examined the patient and verified all steele points of history and exam, discussed case, and agree with decision making with Liliana. feeling better, less pain, still about the same w diarrhea Vitals noted, nad, heent nc at mmm breathing unlabored no accessory muscles good effort abd soft nd periumbilical tenderness no guarding no rebound Sepsisappearing most c/w infectious colitis, laurel as she is getting better. continue current treatment. possibly home on PO abx soon Diarrheamost likely laxative induced, unforatunetly still w a good deal of overflow as it's nature (likely why it's so often) given the large amount of retained stool in R colon. fiber w caution wasn't helping much, GI input noted/appreciated - and since it's not really helping will hold. would be helpful to clear R colon to likely reduce frequency of diarrhea since a lot is probably overflow/colon likely under constant stimulation from retained stool in R colon, but options seem limited. DVT prophylaxisLovenox Otherwise as above Subjective Ms. Pettit states she is feeling well today. Her shaking and chills have subsided as has her nausea, and her pain is improved relative to yesterday and much less than prior to admission. She states she was able to eat toast, eggs, and orange juice for breakfast without issue. She is still having numerous loose stools, roughly once per hour needing to get up to use the restroom but finding that this mobility is helping decrease her abdominal discomfort and she has no concerns about weaknesses or dizziness. She said that despite her diarrhea she was able to get decent sleep. She says her pain this morning is more of a soreness, 1/10, and primarily in the LUQ. She is also using an incentive spirometer to prevent PNA. Review of Systems Review of Systems: All systems reviewed & are unremarkable except as noted in HPI & below Constitutional: no fever, no chills, no sweats, no body aches, no weakness and no anorexia Respiratory: no cough and no dyspnea Cardiovascular: no chest pain, no dyspnea, no palpitations and no lightheadedness Gastrointestinal: + abdominal pain (mild 1/10) and + diarrhea/loose stools; no dysphagia and no constipation Genitourinary: no dysuria Neurologic: no dizziness, no headache(s) and no confusion Physical Exam Constitutional: WD/WN, vitals as above cooperative and comfortable; no acute distress ENMT: external ear and nose normal, oropharynx normal Respiratory: normal respiratory effort, lungs clear to auscultation Auscultation: no rales, no rhonchi and no wheezes Cardiovascular: RRR, no murmur, no edema Heart Sounds: normal S1 and normal S2; no gallop, no murmur and no cardiac rub Gastrointestinal (Abdomen): Inspection/Auscultation: abdomen normal to inspection and normal bowel sounds; abdomen not distended Percussion/Palpation: + abdomen tender (mild tenderness to deep palpation LUQ only); no guarding, abdomen not rigid and no hepatosplenomegaly Musculoskeletal: no cyanosis or clubbing, extremities motor strength 5/5 Skin: no rashes, warm and dry Psychiatric: A+Ox3, euthymic affect Eye Contact: good eye contact Results & Data ([facility]) Vital Signs (Past 12 Hours) Vital Signs Temp Pulse Resp BP Pulse Ox 09/03/20 07:09 36.6 C 69 16 120/70 95
--- NOTE | 2020-09-03 18:35 | Billing Data ---
Date of Service September 03, 2020 Coding Level of Care Code 35327 Subseq Hosp Care Lvl 3
[2020-09-03] MEDS: cefTRIAXone SODIUM 1,000 MG in DEXTROSE 5% 50 ML IV SCH (19:55)
[2020-09-03] MEDS: RHOPRESSA: NON-FORMULARY PATIENT'S OWN MED OPL SCH (20:28)
[2020-09-03] MEDS: BIMATOPROST 0.01% OP SOLN 2.5 ML BTL OPL SCH (20:28)
[2020-09-04] MEDS: D5W AND 1/2NSS + 20MEQ KCL 20 MEQ/1,000 ML BAG IV SCH ×3 (03:04→22:30)
[2020-09-04] MEDS: metroNIDAZOLE 500 MG/100 ML BAG IV SCH ×3 (04:12→22:28)
[2020-09-04 06:45] LABS: Basophils # (auto) 0.02 K/uL (0-0.2); Basophils % (auto) 0.1 %; Eosinophils # (auto) 0.06 K/uL (0-0.5); Eosinophils % (auto) 0.4 %; Hematocrit (blood only) 32.3 % (37-47); Hemoglobin 10.5 g/dL (12.0-16.0); Immature Granulocytes # (auto) 0.08 K/uL (0.00-0.02); Immature Granulocytes % (auto) 0.5 %; Lymphocytes # (auto) 2.04 K/uL (1.2-3.4); Lymphocytes % (auto) 11.9 %; Mean Corpuscular Hemoglobin 31.2 pg (25-34); Mean Corpuscular Hgb Conc 32.5 g/dL (32-36); Mean Corpuscular Volume 95.8 fL (80-100); Mean Platelet Volume 9.5 fL (7.4-10.4); Monocytes % (auto) 11.7 %; Neutrophils # (auto) 12.89 K/uL (1.4-6.5); Neutrophils % (auto) 75.4 %; Platelet Count 422 K/uL (130-400); RDW Coefficient of Variation 15.9 % (11.5-14.5); RDW Standard Deviation 55.3 fL (36.4-46.3); Red Blood Count 3.37 M/uL (4.2-5.4); White Blood Count 17.09 K/uL (4.8-10.8)
[2020-09-04 07:12] LABS: BUN Creatinine Ratio 6.2 (10-20); Calcium 8.6 mg/dl (8.5-10.1); Creatinine Clr Calc Pharmacy 70.5 ml/min; Est GFR (African American) 102.4; Est GFR (Non-African American) 88.4; Potassium 3.7 mmol/L (3.5-5.1)
[2020-09-04] MEDS: ENOXAPARIN INJ 40 MG/0.4 ML SYR SQ SCH (09:48)
[2020-09-04] MEDS: POTASSIUM CHLORIDE CRTAB 20 MEQ TABCR PO SCH (09:48)
[2020-09-04] MEDS: POLYETHYLENE (MIRALAX) 17 GM PACK PO SCH ×2 (09:48→22:41)
[2020-09-04] MEDS: TIMOLOL MALEATE 0.5% OP SOLN 5 ML BTL OPL SCH (09:49)
[2020-09-04] MEDS: CHOLECALCIFEROL 1,000 UNITS 25 MCG TAB PO SCH (09:50)
[2020-09-04] MEDS: RHOPRESSA: NON-FORMULARY PATIENT'S OWN MED OPL SCH (18:38)
--- NOTE | 2020-09-04 19:32 | Hospitalist Progress Note ---
Date of Service September 04, 2020 Assessment & Plan (1) Sepsis: Clinically improving, exam improved, pain improved, white count initially improved now up a little bitbut I would suspect with everything she has going on between the cancer, the stent, etc., that she would be apt to run a bit of a nonspecific leukocytosis. We will continue ceftriaxone and Flagyl, repeat labs in the morning as well as a repeat CRP and pro calcitonin to follow the trend, however the way she looks at the bedside I suspect I will be able to switch her to oral antibiotics and discharged home tomorrow as long as she shows stability to ongoing improvement The source of the sepsis appeared to be abdominal, her blood cultures are negative (of course they were drawn after she was given antibiotics) with her pain and presentation, I do suspect some type of colonic infectionand given that the CT was done without oral contrast certainly that would be difficult to exclude. (2) Abdominal pain: Improved, see above otherwise (3) Diarrhea: Given that her overall septic picture has improved, I am less suspicious of C. difficile by the day. Certainly the most likely etiology of her diarrhea is the MiraLAX. The concerning problem is that it is so troublesome for her, but certainly necessary to keep her stools soft to pass through the bottleneck of her cancer/stent. Further I do worry that she is got a degree of overflow incontinence physiologygiven that she has a lot of stool in her right colon that is likely causing a frequent trigger for stretch/recoil of her enteric nervous system. GI felt that even a low-dose of fiber would be too risky, so this has been discontinued, but no further suggestions were made. We could utilize something more stimulant, but I would worry about dislodging the stent. Ongoing GI follow-up in this regard, supportive care otherwise (4) Metastatic adenocarcinoma: (5) DVT prophylaxis: Lovenox (6) Discharge planning issues: With ongoing stability/improvement, I suspect will be L to get her home on oral antibiotics tomorrow. Tried to call patient's daughter 2 separate times this evening, no answer. Left message. Admission and Anticipated Discharge Date Admission Date: September 02, 2020 Subjective Pain feeling better, no fevers, eating well. Still having diarrhea about the same. Review of Systems Review of Systems: All systems reviewed & are unremarkable except as noted in HPI & below Physical Exam Physical Exam: In general she is awake and alert pleasant no distress. HEENT normocephalic atraumatic mucous membranes moist. Breathing unlabored no accessory muscle use good effort. Abdomen is soft may be mildly distended but definitely less than before nontender no masses organomegaly no guarding no rebound no rigidity. Extremities show no cyanosis or clubbing. Skin shows no rashes no pallor or icterus. Neuro other than hard of hearing shows no focal deficits. Results & Data Results & Data ([facility]) Vital Signs (Past 12 Hours) Vital Signs Temp Pulse Resp BP Pulse Ox 09/04/20 15:54 98.8 F 65 16 165/84 H 91 09/04/20 07:56 98.2 F 67 16 125/78 95 PG Care Time/CCT Total # of Minutes Spent Total Time Spent with Patient: Total time spent is greater than 50% in coordination of care (as documented) at patient's floor/unit and/or counseling patient: Coding Level of Care Code 14732 Subseq Hosp Care Lvl 3 Diagnoses Sepsis A41.9 Abdominal pain R10.9 Abdominal location: unspecified location Diarrhea R19.7 Metastatic adenocarcinoma C79.9 DVT prophylaxis Z29.9 Discharge planning issues Z02.9 (1) Abdominal pain Abdominal location: unspecified location Qualified Code(s): R10.9 - Unspecified abdominal pain
--- NOTE | 2020-09-04 19:32 | Billing Data ---
Date of Service September 04, 2020 Coding Level of Care Code 06517 Subseq Hosp Care Lvl 3
[2020-09-04] MEDS: cefTRIAXone SODIUM 1,000 MG in DEXTROSE 5% 50 ML IV SCH (22:29)
[2020-09-04] MEDS: BIMATOPROST 0.01% OP SOLN 2.5 ML BTL OPL SCH (22:42)
[2020-09-05] MEDS: metroNIDAZOLE 500 MG/100 ML BAG IV SCH (05:33)
[2020-09-05 07:26] LABS: Basophils # (auto) 0.01 K/uL (0-0.2); Basophils % (auto) 0.1 %; Eosinophils # (auto) 0.01 K/uL (0-0.5); Eosinophils % (auto) 0.1 %; Hematocrit (blood only) 31.7 % (37-47); Hemoglobin 10.4 g/dL (12.0-16.0); Immature Granulocytes # (auto) 0.12 K/uL (0.00-0.02); Immature Granulocytes % (auto) 0.6 %; Lymphocytes # (auto) 1.78 K/uL (1.2-3.4); Mean Corpuscular Hemoglobin 31.3 pg (25-34); Mean Corpuscular Hgb Conc 32.8 g/dL (32-36); Mean Corpuscular Volume 95.5 fL (80-100); Mean Platelet Volume 9.5 fL (7.4-10.4); Monocytes # (auto) 2.65 K/uL (0.11-0.59); Monocytes % (auto) 13.4 %; Neutrophils # (auto) 15.17 K/uL (1.4-6.5); Neutrophils % (auto) 76.8 %; Platelet Count 462 K/uL (130-400); RDW Coefficient of Variation 15.8 % (11.5-14.5); Red Blood Count 3.32 M/uL (4.2-5.4); White Blood Count 19.74 K/uL (4.8-10.8)
[2020-09-05 08:04] LABS: BUN Creatinine Ratio 4.4 (10-20); C Reactive Protein 8.83 mg/dl (0-0.29); Calcium 7.9 mg/dl (8.5-10.1); Creatinine Clr Calc Pharmacy 73.3 ml/min; Est GFR (African American) 103.7; Est GFR (Non-African American) 89.5; Potassium 3.6 mmol/L (3.5-5.1)
[2020-09-05] MEDS: POLYETHYLENE (MIRALAX) 17 GM PACK PO SCH (08:19)
[2020-09-05] MEDS: POTASSIUM CHLORIDE CRTAB 20 MEQ TABCR PO SCH (08:19)
[2020-09-05] MEDS: ENOXAPARIN INJ 40 MG/0.4 ML SYR SQ SCH (08:20)
[2020-09-05] MEDS: DORZOLAMIDE HCL 2% OPH SOLN 10 ML BTL OPL SCH (08:21)
[2020-09-05] MEDS: DUREZOL OPR SCH (08:21)
[2020-09-05] MEDS: TIMOLOL MALEATE 0.5% OP SOLN 5 ML BTL OPL SCH (08:21)
[2020-09-05] MEDS: CHOLECALCIFEROL 1,000 UNITS 25 MCG TAB PO SCH (08:22)
[2020-09-05] MEDS: D5W AND 1/2NSS + 20MEQ KCL 20 MEQ/1,000 ML BAG IV SCH (10:31)
--- NOTE | 2020-09-05 19:17 | Discharge Summary ---
Date of Service September 05, 2020 Admission HPI Per Admitting Provider Ms. Pettit is an 85 year old woman with past medical history of metastatic colon cancer to the liver, bacterial colitis, large bowel obstruction who presented to the ED today with abdominal pain and chills. She had just been discharged from the hospital on 08/26 with a new colon stent and a Mediport, and has had several hospitalizations over the past few months. She states she had felt relatively well the past few days with some baseline abdominal discomfort and diarrhea which has been present since June. Today she felt a sudden increase in her abdominal pain, especially in her lower abdomen, which was colic ky in nature and exacerbated by movement or touching it. She states she also had chills and shaking. Her daughter Juany brought her to the ED, and in the few hours since arriving she has felt noticeable improvement, with the pain decreasing from 8/10 to 3/10 and the chills and shaking mostly gone. She did have a large, watery BM in the ED and is unsure if this occurred before or after her pain decreased. She has been experiencing diarrhea since late June, which has increased somewhat since her discharge from the hospital last week. Recently she has been having 10+ loose stools per day. She has been taking Miralax daily for her colon cancer. She was set to start chemotherapy with Dr. Taylor tomorrow. Principal Diagnosis Sepsis Colon cancer Discharge Exam In general she is awake and alert pleasant no distress. HEENT normocephalic atraumatic mucous membranes moist. Breathing unlabored no accessory muscle use good effort. Skin shows no rashes no pallor or icterus. Abdomen is soft may be mildly distended nontender no masses organomegaly. Other than hard of hearing, no focal neuro deficits Discharge Data Allergies Allergy/AdvReac Type Severity Reaction Status Date / Time amoxicillin Allergy Unknown Unknown Verified 09/02/20 14:51 brimonidine Allergy Unknown Unknown Verified 09/02/20 14:51 sulfamethizole Allergy Unknown Unknown Verified 09/02/20 14:51 Consultations 09/02/20 15:38 ED Decision to Admit Stat Ordered Studies 09/02/20 12:41 CT abd pelvis IV con only Stat Hospital Course (1) Sepsis: Clinically improving, exam improved, pain improved, white count initially improved now up a little bitbut I would suspect with everything she has going on between the cancer, the stent, etc., that she would be apt to run a bit of a nonspecific leukocytosis. Her inflammatory markers have stayed in a nonspecific range, and definitely have not trended up. Furthermore she is clinically improved quite nicely. She appears stable for homewe will transition from ceftriaxone and Flagyl to cefdinir and Flagyl. Updated daughter extensively. I also updated the daughter extensively on my concern about how much the cancer probably plays an underlying role in her overall septic presentation, beyond what the infection alone would show The source of the sepsis appeared to be abdominal, her blood cultures are negative (of course they were drawn after she was given antibiotics) with her pain and presentation, I do suspect some type of colonic infectionand given that the CT was done without oral contrast certainly that would be difficult to exclude. (2) Abdominal pain: Improved, see above otherwise (3) Diarrhea: Given that her overall septic picture has improved, I am less suspicious of C. difficile by the day. Certainly the most likely etiology of her diarrhea is the MiraLAX. The concerning problem is that it is so troublesome for her, but certainly necessary to keep her stools soft to pass through the bottleneck of her cancer/stent. Further I do worry that she is got a degree of overflow incontinence physiologygiven that she has a lot of stool in her right colon that is likely causing a frequent trigger for stretch/recoil of her enteric nervous system. GI felt that even a low-dose of fiber would be too risky, so this has been discontinued, but no further suggestions were made. We could utilize something more stimulant, but I would worry about dislodging the stent. Given the difficult conundrum of this problem, and given how much it appears to be impacting her quality of life, I discussed with the daughter garnering opinions from GI, PCP, oncologythat possibly with a little bit of collective "brainstorming" different options could be entertained that might be helpful (4) Metastatic adenocarcinoma: Overall worrisome prognosis. Particularly given her frequent hospitalizations, and because of the fact that her septic picture above appears to have been part infection in part driven by the cancer itself. Discussed this with the daughter extensively, patient does wish to proceed with treatmenta discussed that this is reasonable, but it is also reasonable to cease treatment if it seems to be causing her more harm than good. (5) DVT prophylaxis: Lovenox utilized during her stay (6) Discharge planning issues: Stable for home, extensive approximately 40-minute discussion with daughter. Outpatient follow-up Total Time Total Time Spent Total Time Spent (In Minutes): Greater than 30 Discharge Plan Discharge Items Patient Disposition: Home - Home Health Services Reason For Visit: SEPSIS Discharge Diagnosis: sepsis - improving Activity: Resume your previous activity Non-emergency contact: Primary Care Provider, [facility] Tender and Oncologist Call non-emergency contact if: you have any medication questions and your temperature is above 101 Follow-up/Referrals: Maximo Madden [Primary Care Provider] - 09/11/20 11:00 am ([facility]) Pedro Dominguez D.O. [Outside Practitioners] - (PATIENT WILL CALL ONCE CT OF CHEST IS COMPLETE TO MAKE F/U APPT WITH THIS PROVIDER.) Diet: Low Fiber Addtl Attending Provider Instructions: sepsis - as we discussed, sepsis basically means your body reacting heavily to an infection --> in your situation it was most likely an intestinal infection given your pain/fever and how your abdominal exam went from tender and somewhat hard, to soft and far less uncomfortable. while nothing truly showed it, the CT scan being without contrast would make it a little more limited in being diagnostically useful for this. your blood cultures showed no bloodstream infection, although as we discussed, this was also taken after the antibiotics had been started. -we'll finish out a course of antibiotics with cefdinir (replacing the rocephin you were on through the IV) and flagyl (metronidazole) which is the pill version of the same flagyl you were getting IV here. next dose of both of those should be at bedtime tonight (looking at duration - i believe i misspoke when we talked - after reviewing your chart, because the first dose of antibiotics was late in the day on day 1, it will be another 7 days of antibiotics, not the 6 days we'd discussed, to round out 10 days of total treatment) diarrhea - as we discussed, this is a problem without a clear answer. defining the problem more - it appears that the conundrum is needing to have your stools soft/liquid enough to pass through the "bottleneck" of the cancer and stent without causing an obstruction, while at the same time, we're seeing on CT that in the part of your colon before the stent, there's still enough solid stool that your colon is probably constantly stimulated. the diarrhea appears to be what we call "overflow" - where the liquid stool is what is able to slip past the harder, retained stool - and happens so often because there will always be liquid stool there (due to the miralax) but the colon is likely under constant stimulation to contract (because of the retained, solid stool). what you're seeing as far as "eat--> bowel movement" is not likely that food/liquid is really going through all ~25 feet of GI tract right away, as much as when we eat/drink, that will stimulate our stomach to send a wave of contraction (peristalsis) down the whole intestinal tract --> and since the colon always has stool in it, when that wave of contraction hits your colon, the liquid stool is squeezed forward and out. that is a very lengthy outline of a problem, that as we discussed, i unfortunately don't have a clear answer to. we need to keep you on the miralax to minimize the risk of obstructing again, but that alone has not been enough to move the solid stool out. the gastroenterology team was worried that even adding a little fiber for too long would raise the risk of making stool too solid and increasing risk of obstruction again. we could consider a more aggressive measure to clear out your intestines (like a bowel prep/stimulant laxatives/etc) - but my fear with those is since the stent already migrated out once, if we stimulate your colon too much at once, we could raise the risk of pushing the stent out as well. What i suggest is that we keep on the miralax, but follow up with GI, your PCP, and oncology - and since this is a difficult problem without a clear answer, it might be best to have everyone "brainstorm" on their best answers to the problem Pending Studies at Discharge: No Stand-Alone Forms: [facility], Smoking Cessation Medications and DC Order Prescriptions: New cefdinir 300 mg capsule 300 mg PO BID Qty: 14 RF: 0 metronidazole [Flagyl] 500 mg tablet 500 mg PO TID Qty: 21 RF: 0 Continued timolol maleate 0.5 % drops 1 drp OPR DAILY RF: 0 dorzolamide 2 % drops 1 drp OPL 3XWK RF: 0 Durezol 0.05 % drops 1 drp OPR 3XWK RF: 0 Lumigan 0.01 % drops 1 drp OPR DAILY RF: 0 Rhopressa 0.02 % Drops 1 drp OPR PM RF: 0 cholecalciferol (vitamin D3) [Vitamin D3] 50 mcg (2,000 unit) Capsule 50 mcg PO DAILY RF: 0 Artificial Tears (PF) Dropperette 1 drp OPHTHALMIC (EYE) DIRECTED PRN (Reason: Dry Eyes) RF: 0 potassium chloride [Klor-Con M10] 10 mEq Tablet,Er Particles/Crystals 40 meq PO DAILY 30 Days Qty: 120 RF: 0 polyethylene glycol 3350 [Miralax] 17 gram/dose powder 17 g PO BID RF: 0 Discharge Orders: Discharge Order (Routine); Ordered 09/05/20 Ordered By: Blanco Young/Other Patient Handouts: Metronidazole tablets or capsules, Cefdinir capsules Admission Data Admit Date/Time: 09/02/20 16:16 Attending Provider: Blanco Callaway Admit Provider: Blanco Callaway Primary Care Provider: Maximo Madden Other Providers: Fausto Odell ; [facility] Other Interventions: Discharge Summary Assessment (RN) Last Done: 09/05/20 13:26 Coding Level of Care Code D/C Day Management >30 mins Diagnoses Sepsis A41.9 Abdominal pain R10.9 Abdominal location: unspecified location Diarrhea R19.7 Metastatic adenocarcinoma C79.9 DVT prophylaxis Z29.9 Discharge planning issues Z02.9
== END 2020-09-05 15:35 | disposition home health service (06) | DRG 872 ==
LOC: ED 11:23 → 3W 16:16

== ENCOUNTER 2020-12-09 13:40 | Inpatient (IN) ==
[2020-12-09] MEDS ORDERED: SODIUM CHLORIDE 0.9% 500 ML IV STA (14:45)
--- NOTE | 2020-12-09 14:45 | Emergency Department Note ---
Impression & Plan Perforated abdominal viscus, Pneumoperitoneum ED Provider Note NAME: GAY PEÑA AGE: 85 SEX: F : 1935 ARRIVES VIA: Walk-In INFORMANT: Patient, ED PROVIDER(S): Julius Treviño MD Chief Complaint: Abdominal pain HPI: Patient does present with abdominal pain that began within the last 1 to 2 days. The patient does have a known history of colon cancer and rectal mass and does have a rectal stent. This was placed by GI back in August. Patient did have a bout of colitis back in August around the same time this does not feel similar. The patient states that her abdomen is "no punching bag today." Patient is not take anything for the pain at home describes it primarily in the lower abdomen worse in the right lower quadrant and achy in nature. Patient's pain is worse with palpation. The patient is undergoing chemotherapy does have a port in her right chest. She does follow with Dr. Taylor. The patient's last chemo was last week. Patient denies any chest pains or shortness of breath. No changes in diet although she is had decreased appetite since the time of her discomfort. The patient has had some liquid stool over the last 2 days over which time the patient has not been taking MiraLAX. Patient has had a prior appendectomy and cholecystectomy which were not recent. ROS: See HPI for pertinent positives and negatives. A total of 10 systems were reviewed and otherwise negative. Past medical history: See below Surgical history: See below Social history: See below Physical Exam: GENERAL: Well appearing, well nourished, NAD, non-toxic. EYE EXAM: Normal conjunctiva. PERRL, no anisocoria and EOM's grossly intact w/o pain. NECK: Supple, no nuchal rigidity, no adenopathy, non-tender. No signs of meningismus. LUNGS: Clear to auscultation. Normal chest wall mechanics. HEART: NSR, no MRG. ABDOMEN: Abdomen soft, mild diffuse discomfort but worst in the lower abdomen. Normo-active bowel sounds, no masses, no rebound or guarding. BACK: No CVA TTP. SKIN: Two 1 cm areas of slight skin breakdown at the superior medial aspect of the left gluteus without surrounding erythema fluctuance crepitus or drainage. UPPER EXTREMITIES: Upper extremities are grossly normal. LOWER EXTREMITIES: Grossly normal, no edema. NEURO EXAM: A&O x3, cranial nerves II-XII grossly intact, normal speech, moves all 4 extremities on command w/o issue. Differential diagnoses: Appendicitis, ovarian cyst, ovarian torsion, ectopic , TOA, PID, infections, diverticulitis, UTI, obstruction, mesenteric ischemia, aortic pathology, inflammatory bowel disease, renal colic, PUD, pancreatitis, biliary pathology, hernia, volvulus, constipation, as well as other pathologies. Course: Patient was seen and evaluated the bedside. Full history physical exam was performed. EKG interpreted by me [] Imaging Studies: See below Cardiac monitoring: An order was placed for continuous cardiac monitoring. The monitor shows a rate of 93 with sinus rhythm. MDM: Patient was seen due to concern for abdominal pain. Patient did a blood work complete along CT abdomen pelvis. Patient's blood work does show white counts with anemia and thrombocytopenia. Patient CT does show pneumoperitoneum. There is no obvious source of the perforation but likely secondary to the patient's rectal stent. Blood cultures were ordered along with antibiotics. I did speak with the on-call general surgeon Dr. Grier who did evaluate the patient. He was concerned as the patient may need surgery but may not tolerate it given her age and comorbidities. I did speak the on-call hospitalist Dr. Tejeda patient was a dmitted to the medicine service. Past Med/Surg History Medical History Abdominal pain Anemia Glaucoma Hypothermia Large bowel obstruction No pertinent past medical history Right bundle branch block Sepsis Surgical History H/O bladder repair surgery 1964 H/O excision of mass 1956 removed from breast H/O eye surgery R eye 2019 History of appendectomy History of removal of cyst ankle R cyst removed 1978 Hx of colonoscopy 2017 & 2020 S/P cholecystectomy 2000 Social History Smoking Status: Never smoker Hx Alcohol Use: No Hx Substance Use: No Preferred Language: Bengali Communication Ability: Effective Visual Impairment: Limited Hearing Ability: Normal Phototypesetter Operator Required: No Beliefs That Will Affect Care: None marital status: / Current Living Situation: Family current occupational status: retired Feels Safe at Home: Yes Assistive Devices: None Allergies Allergies Allergy/AdvReac Type Severity Reaction Status Date / Time amoxicillin Allergy Unknown Unknown Verified 12/09/20 17:52 brimonidine Allergy Unknown Unknown Verified 12/09/20 17:52 sulfamethizole Allergy Unknown Unknown Verified 12/09/20 17:52 Home Meds Home Medications Medication Instructions Recorded Confirmed Durezol 1 drp OPR 3XWK 03/14/19 12/09/20 Lumigan 1 drp OPL HS 03/14/19 12/09/20 Rhopressa 1 drp OPL PM 03/14/19 12/09/20 dorzolamide 1 drp OPL TID 03/14/19 12/09/20 timolol maleate 1 drp OPL DAILY 03/14/19 12/09/20 Artificial Tears (PF) 1 drp OPHTHALMIC (EYE) DIRECTED 08/05/20 12/09/20 PRN cholecalciferol (vitamin D3) 50 mcg PO DAILY 08/05/20 12/09/20 [Vitamin D3] polyethylene glycol 3350 [Miralax] 17 g PO BID PRN 09/02/20 12/09/20 ondansetron HCl 8 mg PO Q8 PRN 12/09/20 12/09/20 pegfilgrastim [Neulasta] 0 mg SUBCUT .[id number] UD 12/09/20 12/09/20 potassium chloride 20 meq PO DAILY 12/09/20 12/09/20 Results & Data (ED) Vital Signs Vital Signs - 24 hr 12/09/20 13:48 12/09/20 17:00 12/09/20 17:03 Temperature 36.8 C Temperature Source Temporal Artery Scan Pulse Rate 93 H 94 H Pulse Rate from SpO2 Sensor 95 H Respiratory Rate 20 20 Respiratory Effort / Characteristics Non-Labored Spontaneous Respiratory Depth Normal Respiratory Pattern Regular Blood Pressure 142/75 H 174/76 H Blood Pressure Mean 97 108 Pulse Oximetry 95 93 96 Oxygen Delivery Method Room Air Room Air Sepsis Recent Fever Within 48 Hours No Sepsis New/Unexplained Change in Mental Status No Sepsis Action Taken by Nursing No Action Required Home Medications Current Medication List: was personally reviewed by me Laboratory Data Attestation: I reviewed the patient's lab results. Result diagrams: 12/09/20 15:01 12/09/20 15:01 Lab Results 12/09/20 12/09/20 12/09/20 Range/Units 15:00 15:01 15:01 WBC 19.22 H (4.8-10.8) K/uL RBC 2.78 L (4.2-5.4) M/uL Hgb 9.0 L (12.0-16.0) g/dL Hct 27.0 L (37-47) % MCV 97.1 (80-100) fL MCH 32.4 (25-34) pg MCHC 33.3 (32-36) g/dL RDW Std Deviation 65.3 H (36.4-46.3) fL RDW Coeff of Shane 18.9 H (11.5-14.5) % Plt Count 48 L (130-400) K/uL MPV 13.3 H (7.4-10.4) fL Immature Gran % (Auto) 0.6 % Neut % (Auto) 91.5 % Lymph % (Auto) 1.6 % [place] % (Auto) 6.2 % Eos % (Auto) 0.0 % Baso % (Auto) 0.1 % Neut # (Auto) 17.59 H (1.4-6.5) K/uL Lymph # (Auto) 0.31 L (1.2-3.4) K/uL [place] # (Auto) 1.19 H (0.11-0.59) K/uL Eos # (Auto) 0.00 (0-0.5) K/uL Baso # (Auto) 0.01 (0-0.2) K/uL Immature Gran # (Auto) 0.12 H (0.00-0.02) K/uL Absolute Nucleated RBC 0.10 H (0-0) K/uL Nucleated RBC % (auto) 0.5 % Hypersegmented Neuts 1+ Dohle Bodies 1+ Platelet Estimate Decreased L (Normal) Giant Platelets 1+ [place] Bodies 1+ Acanthocytes (Spur) 1+ Sodium 147 H (136-145) mmol/L Potassium 2.4 L* (3.5-5.1) mmol/L Chloride 117 H (98-107) mmol/L Carbon Dioxide 23 (21-32) mmol/L Anion Gap 7.0 (3-11) BUN 9 (7-18) mg/dl Creatinine 0.40 L (0.6-1.2) mg/dl Est Cr Clr Drug Dosing Not Reportable Est GFR ( Amer) 111.6 ml/min Est GFR (Non-Af Amer) 96.3 ml/min BUN/Creatinine Ratio 23.5 H (10-20) Glucose 104 H (70-99) mg/dl Calcium 6.2 L (8.5-10.1) mg/dl Total Bilirubin 0.8 (0.2-1) mg/dl AST 32 (15-37) U/L ALT 7 L (12-78) U/L Alkaline Phosphatase 201 H (45-117) U/L Total Protein 4.2 L (6.4-8.2) gm/dl Albumin 1.9 L (3.4-5.0) gm/dl Globulin 2.3 L (2.5-4.0) gm/dl Albumin/Globulin Ratio 0.8 L (0.9-2) Lipase 57 L (73-393) U/L Procalcitonin 1.74 H (0-0.5) ng/ml COVID-19 Eval Order SARS-CoV-2 (PCR) (Negative) 12/09/20 12/09/20 Range/Units 17:17 17:17 WBC (4.8-10.8) K/uL RBC (4.2-5.4) M/uL Hgb (12.0-16.0) g/dL Hct (37-47) % MCV (80-100) fL MCH (25-34) pg MCHC (32-36) g/dL RDW Std Deviation (36.4-46.3) fL RDW Coeff of Shane (11.5-14.5) % Plt Count (130-400) K/uL MPV (7.4-10.4) fL Immature Gran % (Auto) % Neut % (Auto) % Lymph % (Auto) % [place] % (Auto) % Eos % (Auto) % Baso % (Auto) % Neut # (Auto) (1.4-6.5) K/uL Lymph # (Auto) (1.2-3.4) K/uL [place] # (Auto) (0.11-0.59) K/uL Eos # (Auto) (0-0.5) K/uL Baso # (Auto) (0-0.2) K/uL Immature Gran # (Auto) (0.00-0.02) K/uL Absolute Nucleated RBC (0-0) K/uL Nucleated RBC % (auto) % Hypersegmented Neuts Dohle Bodies Platelet Estimate (Normal) Giant Platelets [place] Bodies Acanthocytes (Spur) Sodium (136-145) mmol/L Potassium (3.5-5.1) mmol/L Chloride (98-107) mmol/L Carbon Dioxide (21-32) mmol/L Anion Gap (3-11) BUN (7-18) mg/dl Creatinine (0.6-1.2) mg/dl Est Cr Clr Drug Dosing Est GFR ( Amer) ml/min Est GFR (Non-Af Amer) ml/min BUN/Creatinine Ratio (10-20) Glucose (70-99) mg/dl Calcium (8.5-10.1) mg/dl Total Bilirubin (0.2-1) mg/dl AST (15-37) U/L ALT (12-78) U/L Alkaline Phosphatase (45-117) U/L Total Protein (6.4-8.2) gm/dl Albumin (3.4-5.0) gm/dl Globulin (2.5-4.0) gm/dl Albumin/Globulin Ratio (0.9-2) Lipase (73-393) U/L Procalcitonin (0-0.5) ng/ml COVID-19 Eval Order Covid19 at [facility] SARS-CoV-2 (PCR) NEGATIVE (Negative) Administered Medications Discontinued Medications Sodium Chloride (Nss) 500 mls @ 999 mls/hr IV .Q31M STA Stop: 12/09/20 15:15 Last Infusion: 12/09/20 17:07 Dose: 0 mls/hr Documented by: [id number] Admin: 12/09/20 15:00 Dose: 999 mls/hr Documented by: [id number] Cefepime HCl (Maxipime) 2,000 mg in 20 mls @ 5 mls/min IV NOW STA; Protocol Stop: 12/09/20 17:14 Last Admin: 12/09/20 18:17 Dose: 5 mls/min Documented by: [id number] Metronidazole (Flagyl) 500 mg in 100 mls @ 100 mls/hr IV NOW STA Stop: 12/09/20 18:12 Last Admin: 12/09/20 18:17 Dose: 100 mls/hr Documented by: [id number] Potassium Chloride (K Reji / Wtr) 10 meq in 100 mls @ 100 mls/hr IV Q1H TAYO Stop: 12/09/20 19:29 Last Admin: 12/09/20 19:11 Dose: 100 mls/hr Documented by: [id number] Infusion: 12/09/20 18:32 Dose: 100 mls/hr Documented by: [id number] Admin: 12/09/20 17:32 Dose: 100 mls/hr Documented by: [id number] Ioversol (Optiray 320 100ml) 94 ml IV ONCE ONE Stop: 12/09/20 16:33 Last Admin: 12/09/20 16:32 Dose: 94 ml Documented by: [id number] Imaging Data Radiologist's Impression: Abdomen/Pelvis CT 12/09/20 14:[address] WITH IV CONTRAST CT DOSE: 308.87 mGy.cm HISTORY: Acute right lower quadrant abdominal pain rectal stent, lower ab pain; worst RLQ, prior appy TECHNIQUE: Multiaxial CT images of the abdomen and pelvis were performed following the IV administration of 94 cc of Optiray, A dose lowering technique was utilized adhering to the principles of ALARA. COMPARISON STUDY: CT abdomen and pelvis 09/02/2020 FINDINGS: Cardiomegaly. Mitral annular and coronary arterial stents. Equivocal filling defects versus artifact noted within segmental and subsegmental branches of the right greater than left lower lobe pulmonary arteries. Trace pleural effusions. Mild dependent subsegmental bibasilar atelectasis. The previously described 5 mm solid nodule of the basal right lower lobe is not identified on today's study. Absent spleen. Mild generalized pancreatic atrophy. Unremarkable adrenal glands. Cholecystectomy. Multifocal hepatic metastasis redemonstrated, the largest lesion within the right hepatic lobe measuring up to 3.6 cm. Most of the lesions appear to have slightly decreased in size from comparison. For example, a 1.5 cm lesion of the right hepatic lobe on image 83 previously measured 2.1 cm. A 1.4 cm lesion of the inferior right hepatic lobe previously measured 1.7 cm. Patency of the hepatic and portal veins. Unremarkable kidneys and urinary bladder. Uterus and adnexa are also unremarkable. Atherosclerosis of the abdominal aorta without aneurysm. Small hiatal hernia. Stent is redemonstrated within the rectosigmoid traversing a large irregular mass. No bowel obstruction. Moderate fecal retention. Mild wall thickening with partial distention of the ascending colon is new from comparison. There is a moderate amount of pneumoperitoneum. Trace abdominal pelvic ascites. No drainable fluid collection. A discrete bowel perforation is not identified. Decreased size of the soft tissue perirectal implants. Cystic foci of the bilateral adnexa redemonstrated which are unchanged measuring up to 3.7 cm on the right. No acute fracture. Demineralized appearance the bones. No new bone lesions. Unchanged T8 compression deformity. Chronic appearing superior endplate Schmorl's node at L4. IMPRESSION: 1. Stent within the rectosigmoid redemonstrated traversing a large colonic mass. Moderate amount of pneumoperitoneum is compatible with perforated viscus. A discrete bowel perforation is not identified, however presumably the rectosigmoid colon is the causative site. 2. Decreased size of the hepatic metastasis and perirectal soft tissue implants compatible with positive treatment response. 3. Trace pleural effusions. 4. Artifact versus equivocal filling defects within segmental and subsegmental pulmonary arterial branches of the lung bases. Findings could be correlated with a follow-up CTA of the chest to exclude pulmonary emboli if deemed clinically a ppropriate. 5. Small volume of abdominal pelvic ascites. 6. Additional findings as above. ACT 112: Negative or not required by law. The above report was generated using voice recognition software. It may contain grammatical, syntax or spelling errors. Electronically signed by: Ollie Domingo M.D. 12/09/2020 4:53 PM Discharge Plan Visit Data Chief Complaint: Constipation Stated Complaint: BOWEL BLOCKAGE ED Provider: Julius Treviño Discharge Problem: Perforated abdominal viscus, Pneumoperitoneum Forms Stand Alone Forms: IPextreme Prescriptions Prescriptions: No Action timolol maleate 0.5 % drops 1 drp OPL DAILY RF: 0 dorzolamide 2 % drops 1 drp OPL TID RF: 0 Durezol 0.05 % drops 1 drp OPR 3XWK RF: 0 Lumigan 0.01 % drops 1 drp OPL HS RF: 0 Rhopressa 0.02 % Drops 1 drp OPL PM RF: 0 cholecalciferol (vitamin D3) [Vitamin D3] 50 mcg (2,000 unit) Capsule 50 mcg PO DAILY RF: 0 Artificial Tears (PF) Dropperette 1 drp OPHTHALMIC (EYE) DIRECTED PRN (Reason: Dry Eyes) RF: 0 polyethylene glycol 3350 [Miralax] 17 gram/dose powder 17 g PO BID PRN (Reason: Constipation) RF: 0 ondansetron HCl 8 mg tablet 8 mg PO Q8 PRN (Reason: Nausea) RF: 0 potassium chloride 20 mEq/15 mL liquid 20 meq PO DAILY RF: 0 Neulasta 6 mg/0.6 mL Syringe 0 mg SUBCUT .[id number] UD RF: 0
[2020-12-09 15:41] LABS: Acanthocytes 1+; Basophils # (auto) 0.01 K/uL (0-0.2); Basophils % (auto) 0.1 %; Dohle Bodies 1+; Giant Platelets 1+; Howell-Jolly Bodies 1+; Immature Granulocytes # (auto) 0.12 K/uL (0.00-0.02); Immature Granulocytes % (auto) 0.6 %; Lymphocytes # (auto) 0.31 K/uL (1.2-3.4); Lymphocytes % (auto) 1.6 %; Mean Corpuscular Hemoglobin 32.4 pg (25-34); Mean Corpuscular Hgb Conc 33.3 g/dL (32-36); Mean Corpuscular Volume 97.1 fL (80-100); Mean Platelet Volume 13.3 fL (7.4-10.4); Monocytes # (auto) 1.19 K/uL (0.11-0.59); Monocytes % (auto) 6.2 %; Neutrophils # (auto) 17.59 K/uL (1.4-6.5); Neutrophils % (auto) 91.5 %; Nucleated RBC % (auto) 0.5 %; Platelet Count 48 K/uL (130-400); Platelet Estimate Decreased (Normal); RDW Coefficient of Variation 18.9 % (11.5-14.5); RDW Standard Deviation 65.3 fL (36.4-46.3); Red Blood Count 2.78 M/uL (4.2-5.4); White Blood Count 19.22 K/uL (4.8-10.8)
[2020-12-09 15:59] LABS: Alanine Aminotransferase 7 U/L (12-78); Albumin Globulin Ratio 0.8 (0.9-2); Albumin Level 1.9 gm/dl (3.4-5.0); Alkaline Phosphatase 201 U/L (45-117); Aspartate Aminotransferase 32 U/L (15-37); BUN Creatinine Ratio 23.5 (10-20); Bilirubin,Total 0.8 mg/dl (0.2-1); Blood Urea Nitrogen 9 mg/dl (7-18); Calcium 6.2 mg/dl (8.5-10.1); Carbon Dioxide 23 mmol/L (21-32); Chloride 117 mmol/L (98-107); Est GFR (African American) 111.6 ml/min; Est GFR (Non-African American) 96.3 ml/min; Globulin 2.3 gm/dl (2.5-4.0); Glucose 104 mg/dl (70-99); Lipase 57 U/L (73-393); Potassium 2.4 mmol/L (3.5-5.1); Sodium 147 mmol/L (136-145); Total Protein 4.2 gm/dl (6.4-8.2)
[2020-12-09] MEDS ORDERED: OPTIRAY 320 100ml IV ONE (16:32)
--- NOTE | 2020-12-09 16:55 | CT Scan Report ---
ABDOMEN AND PELVIS CT WITH IV CONTRAST CT DOSE: 308.87 mGy.cm HISTORY: Acute right lower quadrant abdominal pain rectal stent, lower ab pain; worst RLQ, prior terry y TECHNIQUE: Multiaxial CT images of the abdomen and pelvis were performed following the IV administrat ion of 94 cc of Optiray, A dose lowering technique was utilized adhering to the principles of ALARA. COMPARISON STUDY: CT abdomen and pelvis 09/02/2020 FINDINGS: Cardiomegaly. Mitral annular and coronary arterial stents. Equivocal filling defects versus artifact noted within segmental and subsegmental branches of the right greater than left lower lobe pulmonary arteries. Trace pleural effusions. Mild dependent subsegmental bibasilar atelectasis. The previously described 5 mm solid nodule of the basal right lower lobe is not identified on today's study. Absent spleen. Mild generalized pancreatic atrophy. Unremarkable adrenal glands. Cholecystectomy. Mul tifocal hepatic metastasis redemonstrated, the largest lesion within the right hepatic lobe measuring up to 3.6 cm. Most of the lesions appear to have slightly decreased in size from comparison. For exa mple, a 1.5 cm lesion of the right hepatic lobe on image 83 previously measured 2.1 cm. A 1.4 cm lesi on of the inferior right hepatic lobe previously measured 1.7 cm. Patency of the hepatic and portal v eins. Unremarkable kidneys and urinary bladder. Uterus and adnexa are also unremarkable. Atherosclerosis of the abdominal aorta without aneurysm. Small hiatal hernia. Stent is redemonstrated within the rectosigmoid traversing a large irregular mas s. No bowel obstruction. Moderate fecal retention. Mild wall thickening with partial distention of th e ascending colon is new from comparison. There is a moderate amount of pneumoperitoneum. Trace abdom inal pelvic ascites. No drainable fluid collection. A discrete bowel perforation is not identified. D ecreased size of the soft tissue perirectal implants. Cystic foci of the bilateral adnexa redemonstra mary which are unchanged measuring up to 3.7 cm on the right. No acute fracture. Demineralized appearance the bones. No new bone lesions. Unchanged T8 compression deformity. Chronic appearing superior endplate Schmorl's node at L4. IMPRESSION: 1. Stent within the rectosigmoid redemonstrated traversing a large colonic mass. Moderate amount of p neumoperitoneum is compatible with perforated viscus. A discrete bowel perforation is not identified, however presumably the rectosigmoid colon is the causative site. 2. Decreased size of the hepatic metastasis and perirectal soft tissue implants compatible with posit renate treatment response. 3. Trace pleural effusions. 4. Artifact versus equivocal filling defects within segmental and subsegmental pulmonary arterial bra nches of the lung bases. Findings could be correlated with a follow-up CTA of the chest to exclude pu lmonary emboli if deemed clinically appropriate. 5. Small volume of abdominal pelvic ascites. 6. Additional findings as above. ACT 112: Negative or not required by law. The above report was generated using voice recognition software. It may contain grammatical, syntax o r spelling errors. Electronically signed by: Ollie Domingo M.D. 12/09/2020 4:53 PM
[2020-12-09] MEDS ORDERED: CEFEPIME 2,000 MG/20 ML VIAL IV STA (17:11)
[2020-12-09] MEDS ORDERED: metroNIDAZOLE 500 MG/100 ML BAG IV STA (17:13)
[2020-12-09] MEDS: POTASSIUM CHLORIDE / WTR 10 MEQ/100 ML PLCT IV SCH ×2 (17:32→19:11)
--- NOTE | 2020-12-09 18:18 | Surgery Consultation ---
Date of Consultation December 09, 2020 Assessment & Plan (1) Colon perforation: I did have a long discussion with the patient's daughter Dennise and her granddaughter Irena Normally we may consider emergency operation with colonic diversion which obviously would be a high risk operation in this patient-especially in light of her abnormal platelet count recent chemotherapy and abnormal electrolytes With her history of metastatic colon cancer with significant liver metastases I feel her prognosis, if we do get her through the operation, is very poor. They do understand she would require laparotomy and a colostomy, and drain placement. We have decided to pursue medical management and likely comfort care. They would consider taking the patient home on hospice if she can be stabilized. I have also discussed this with the patient with her daughter to bedside History of Present Illness History of Present Illness 85-year-old female with a history of metastatic colon cancer involving the rectosigmoid who has a colonic stent in place since August and has been receiving chemotherapy over the past couple of months with some gradual deterioration. She now has abdominal pain and evidence of pneumoperitoneum with a likely colonic perforation Her blood pressure is stable her pulse is 94 respirations 20 on some oxygen Her potassium is 2.4 she is anemic and her platelet count is 48,000 Her daughter Dennise is at the bedside Allergies Allergy/AdvReac Type Severity Reaction Status Date / Time amoxicillin Allergy Unknown Unknown Verified 12/09/20 17:52 brimonidine Allergy Unknown Unknown Verified 12/09/20 17:52 sulfamethizole Allergy Unknown Unknown Verified 12/09/20 17:52 Home Medications Medication Instructions Recorded Confirmed Type Durezol 1 drp OPR 3XWK 03/14/19 12/09/20 History Lumigan 1 drp OPL HS 03/14/19 12/09/20 History Rhopressa 1 drp OPL PM 03/14/19 12/09/20 History dorzolamide 1 drp OPL TID 03/14/19 12/09/20 History timolol maleate 1 drp OPL DAILY 03/14/19 12/09/20 History Artificial Tears (PF) 1 drp OPHTHALMIC (EYE) DIRECTED 08/05/20 12/09/20 History PRN cholecalciferol (vitamin D3) 50 mcg PO DAILY 08/05/20 12/09/20 History [Vitamin D3] polyethylene glycol 3350 [Miralax] 17 g PO BID PRN 09/02/20 12/09/20 History ondansetron HCl 8 mg PO Q8 PRN 12/09/20 12/09/20 History pegfilgrastim [Neulasta] 0 mg SUBCUT .[id number] UD 12/09/20 12/09/20 History potassium chloride 20 meq PO DAILY 12/09/20 12/09/20 History Patient History Medical History Abdominal pain Anemia Glaucoma Hypothermia Large bowel obstruction No pertinent past medical history Right bundle branch block Sepsis Surgical History H/O bladder repair surgery 1964 H/O excision of mass 1956 removed from breast H/O eye surgery R eye 2019 History of appendectomy History of removal of cyst ankle R cyst removed 1978 Hx of colonoscopy 2017 & 2020 S/P cholecystectomy 2000 Social History Smoking Status: Never smoker Hx Alcohol Use: No Hx Substance Use: No Preferred Language: Occitan Communication Ability: Effective Visual Impairment: Limited Hearing Ability: Normal House Wirer Helper Required: No Beliefs That Will Affect Care: None marital status: / Current Living Situation: Family current occupational status: retired Feels Safe at Home: Yes Assistive Devices: None Physical Exam Physical Exam: Patient is awake and responsive and in no distress Her vital signs are stable at the present time Constitutional: no acute distress Cachectic Eyes: + anicteric sclerae Respiratory: normal respiratory effort; no respiratory distress Cardiovascular: Rate/Rhythm: regular rate and regular rhythm Gastrointestinal (Abdomen): Her abdomen is soft but she does have tenderness especially in the lower abdomen to palpation Indicating peritoneal irritation Musculoskeletal: Head/Neck/Chest: normocephalic Skin: + turgor decreased Neurologic: awake Psychiatric: Orientation: alert Results & Data ([facility]) Vital Signs (Past 12 Hours) Vital Signs Temp Pulse Resp BP Pulse Ox 12/09/20 17:03 96 12/09/20 17:00 94 H 20 174/76 H 93 12/09/20 13:48 36.8 C 93 H 20 142/75 H 95 I did review her CAT scan and her laboratories PG Care Time/CCT Total # of Minutes Spent Total Time Spent with Patient: Total time spent is greater than 50% in coordination of care (as documented) at patient's floor/unit and/or counseling patient: Coding Level of Care Code 78540 Initial Inpt Care Lvl 3 Diagnoses Colon perforation K63.1
--- NOTE | 2020-12-09 18:25 | History & Physical Report ---
Date of Service December 09, 2020 Assessment & Plan (1) Metastatic adenocarcinoma: (2) Colon perforation: Admit to monitored bed For now we will continue antibiotics with cefepime keep n.p.o. for now Hydrate with normal saline, follow laboratory including BMP and CBC Replete potassium Discussion with Dr. Grier and patient/daughter. No plans for surgery at this time, I agree that the patient would be a very high surgical risk in her present state and likely even with medical optimization. The patient seems to be comfortable with the idea that prognosis is extremely poor, agreeable to comfort measures and hospice planning. Will ask palliative care to see the patient, consideration to possible discharge soon, especially if she does not improve. (3) Anemia: Hemoglobin dropped by 2 points, patient does not have any active areas of bleeding externally. For now, will continue to monitor. I will hold off any transfusion. (4) Thrombocytopenia: This may be secondary to chemotherapy versus possible early sepsis. I will continue to follow. I will hold off on chemical DVT prophylaxis, SCDs only for now. History of Present Illness Chief Complaint: Abdominal pain Primary Care Provider: Maximo Madden This is an 85-year-old female with past medical history of colon cancer, metastatic to the liver that presents today with abdominal pain. Patient is somewhat limited historian but the daughter is at bedside. Patient was initially diagnosed with colon cancer presenting with nausea vomiting on 08/13. Patient had a rectal stent placed by Dr. Ceja on 08/26. She is since been receiving chemotherapy, and she did have a hospitalization on for abdominal pain. Patient apparently was doing well with chemotherapy, was following with Dr. Nava. Patient had sudden onset of abdominal pain over the past 1-2 days has been getting worse. Pain is mostly in the left lower quadrant and has a crampy nature to it. She has been having some liquid stool but has very little appetite. Daughter became concerned and the patient was brought in for further evaluation. Patient has CT scan of the abdomen and pelvis which showed free air, concerning for perforated viscus. No perforation was seen but is assumed that it would be the area of the rectosigmoid mass/stent. In addition, patient's labs were normal with an elevated white count, some anemia which is new, as well as a platelet count of 48. Her potassium is also very low at 2.4. I did discuss briefly with the daughter, was also present for conversation between family and Dr. Grier, her surgeon. At this time, is felt that surgery would be a significant risk in setting of the patient's comorbidities including thrombocytopenia. Patient is now being admitted for symptomatic management and possible transition to hospice. Allergies Allergy/AdvReac Type Severity Reaction Status Date / Time amoxicillin Allergy Unknown Unknown Verified 12/09/20 17:52 brimonidine Allergy Unknown Unknown Verified 12/09/20 17:52 sulfamethizole Allergy Unknown Unknown Verified 12/09/20 17:52 Home Medications Medication Instructions Recorded Confirmed Type Durezol 1 drp OPR [id number] 03/14/19 12/09/20 History Lumigan 1 drp OPL HS 03/14/19 12/09/20 History Rhopressa 1 drp OPL PM 03/14/19 12/09/20 History dorzolamide 1 drp OPL TID 03/14/19 12/09/20 History timolol maleate 1 drp OPL DAILY 03/14/19 12/09/20 History Artificial Tears (PF) 1 drp OPHTHALMIC (EYE) DIRECTED 08/05/20 12/09/20 History PRN cholecalciferol (vitamin D3) 50 mcg PO DAILY 08/05/20 12/09/20 History [Vitamin D3] polyethylene glycol 3350 [Miralax] 17 g PO BID PRN 09/02/20 12/09/20 History ondansetron HCl 8 mg PO Q8 PRN 12/09/20 12/09/20 History pegfilgrastim [Neulasta] 0 mg SUBCUT .[id number] UD 12/09/20 12/09/20 History potassium chloride 20 meq PO DAILY 12/09/20 12/09/20 History Past Med/Surg History Medical History Abdominal pain Anemia Glaucoma Hypothermia Large bowel obstruction No pertinent past medical history Right bundle branch block Sepsis Surgical History H/O bladder repair surgery 1965 H/O excision of mass 1956 removed from breast H/O eye surgery R eye 2019 History of appendectomy History of removal of cyst ankle R cyst removed 1978 Hx of colonoscopy 2017 & 2020 S/P cholecystectomy 2000 Social History Smoking Status: Never smoker Hx Alcohol Use: No Hx Substance Use: No Preferred Language: Egyptian Communication Ability: Effective Visual Impairment: Limited Hearing Ability: Normal Casting Technician Required: No Beliefs That Will Affect Care: None marital status: / Current Living Situation: Family current occupational status: retired Feels Safe at Home: Yes Assistive Devices: None Review of Systems Constitutional: + weakness and + weight loss; no fever, no chills and no weight gain Eyes: as per Subjective / HPI Respiratory: no cough, no chest congestion, no dyspnea and no dyspnea on exertion Cardiovascular: no chest pain, no orthopnea, no palpitations, no lightheadedness and no edema Gastrointestinal: + abdominal pain, + nausea, + vomiting, + change in bowel habits and + diarrhea/loose stools; no constipation Genitourinary: no dysuria, no difficulty urinating, no urinary frequency, no urinary hesitancy, no urinary urgency and no flank pain Musculoskeletal: no back pain, no neck pain, no joint pain, no stiffness and no myalgia Integumentary: no rash Neurologic: no gait abnormality, no unsteadiness, no falls and no generalized weakness Physical Exam Constitutional: + cachectic and cooperative; no acute distress hard of hearing Neck: trachea midline, no thyromegaly Respiratory: normal respiratory effort Auscultation: lungs clear to auscultation bilaterally; no crackles, no rales, no rhonchi and no wheezes Cardiovascular: Rate/Rhythm: regular rate and regular rhythm Heart Sounds: normal S1, normal S2 and + murmur Gastrointestinal (Abdomen): Inspection/Auscultation: + abdomen distended Percussion/Palpation: + abdomen tender (b/l lower quad, much worse over L side. no r/g with light palpation) and abdomen soft; no guarding, abdomen not rigid and no hepatosplenomegaly Skin: no rashes, warm and dry Results & Data Results & Data ([facility]) Vital Signs (Past 12 Hours) Vital Signs Temp Pulse Resp BP Pulse Ox 12/09/20 17:03 96 12/09/20 17:00 94 H 20 174/76 H 93 12/09/20 13:48 36.8 C 93 H 20 142/75 H 95 Diagnostic Findings ABDOMEN AND PELVIS CT WITH IV CONTRAST CT DOSE: 308.87 mGy.cm HISTORY: Acute right lower quadrant abdominal pain rectal stent, lower ab pain; worst RLQ, prior appy TECHNIQUE: Multiaxial CT images of the abdomen and pelvis were performed following the IV administration of 94 cc of Optiray, A dose lowering technique was utilized adhering to the principles of ALARA. COMPARISON STUDY: CT abdomen and pelvis 09/02/2020 FINDINGS: Cardiomegaly. Mitral annular and coronary arterial stents. Equivocal filling defects versus artifact noted within segmental and subsegmental branches of the right greater than left lower lobe pulmonary arteries. Trace pleural effusions. Mild dependent subsegmental bibasilar atelectasis. The previously described 5 mm solid nodule of the basal right lower lobe is not identified on today's study. Absent spleen. Mild generalized pancreatic atrophy. Unremarkable adrenal glands. Cholecystectomy. Multifocal hepatic metastasis redemonstrated, the largest lesion within the right hepatic lobe measuring up to 3.6 cm. Most of the lesions appear to have slightly decreased in size from comparison. For example, a 1.5 cm lesion of the right hepatic lobe on image 83 previously measured 2.1 cm. A 1.4 cm lesion of the inferior right hepatic lobe previously measured 1.7 cm. Patency of the hepatic and portal veins. Unremarkable kidneys and urinary bladder. Uterus and adnexa are also unrem arkable. Atherosclerosis of the abdominal aorta without aneurysm. Small hiatal hernia. Stent is redemonstrated within the rectosigmoid traversing a large irregular mass. No bowel obstruction. Moderate fecal retention. Mild wall thickening with partial distention of the ascending colon is new from comparison. There is a moderate amount of pneumoperitoneum. Trace abdominal pelvic ascites. No drainable fluid collection. A discrete bowel perforation is not identified. Decreased size of the soft tissue perirectal implants. Cystic foci of the bilateral adnexa redemonstrated which are unchanged measuring up to 3.7 cm on the right. No acute fracture. Demineralized appearance the bones. No new bone lesions. Unchanged T8 compression deformity. Chronic appearing superior endplate Schmorl's node at L4. IMPRESSION: 1. Stent within the rectosigmoid redemonstrated traversing a large colonic mass. Moderate amount of pneumoperitoneum is compatible with perforated viscus. A discrete bowel perforation is not identified, however presumably the rectosigmoid colon is the causative site. 2. Decreased size of the hepatic metastasis and perirectal soft tissue implants compatible with positive treatment response. 3. Trace pleural effusions. 4. Artifact versus equivocal filling defects within segmental and subsegmental pulmonary arterial branches of the lung bases. Findings could be correlated with a follow-up CTA of the chest to exclude pulmonary emboli if deemed clinically appropriate. 5. Small volume of abdominal pelvic ascites. 6. Additional findings as above. PG Care Time/CCT Total # of Minutes Spent Total Time Spent with Patient: Total time spent is greater than 50% in coordination of care (as documented) at patient's floor/unit and/or counseling patient: Coding Level of Care Code 82097 Initial Inpt Care Lvl 3 Diagnoses Metastatic adenocarcinoma C79.9 Colon perforation K63.1 Anemia D64.9 Thrombocytopenia D69.6
[2020-12-09] MEDS ORDERED: ONDANSETRON INJ 2 MG/ML 2 ML VIAL IV PRN (21:20)
[2020-12-09] MEDS ORDERED: MoRPHine SULFATE 2 MG/ML CARP IV PRN (21:20)
[2020-12-09] MEDS ORDERED: ARTIFICIAL TEARS OP PRN (21:53)
[2020-12-09] MEDS: NSS + 20MEQ KCL 20 MEQ/1,000 ML BAG IV SCH (23:14)
[2020-12-09] MEDS: TIMOLOL MALEATE 0.5% OP SOLN 5 ML BTL OPL SCH (23:43)
[2020-12-09] MEDS: DORZOLAMIDE HCL 2% OPH SOLN 10 ML BTL OPL SCH (23:43)
[2020-12-09] MEDS: BIMATOPROST 0.01% OP SOLN 2.5 ML BTL OPL SCH (23:51)
[2020-12-10] MEDS: CEFEPIME 2,000 MG in SYRINGE 0 ML IV SCH ×2 (02:58→09:55)
--- NOTE | 2020-12-10 07:25 | Hospitalist Progress Note ---
Date of Service December 10, 2020 Assessment & Plan Admission and Anticipated Discharge Date Admission Date: December 09, 2020 Results & Data Results & Data ([facility]) Vital Signs (Past 12 Hours) Vital Signs Temp Pulse Pulse Resp BP BP BP 12/10/20 06:41 36.7 C 78 18 145/87 H 12/10/20 03:06 37.2 C 80 18 143/74 H 12/10/20 00:06 37.0 C 87 18 127/80 12/09/20 23:11 36.8 C 84 16 112/66 12/09/20 20:00 90 22 132/76 12/09/20 19:35 95 H 22 Pulse Ox 12/10/20 06:41 94 12/10/20 03:06 91 12/10/20 00:06 94 12/09/20 23:11 93 12/09/20 20:00 93 12/09/20 19:35
[2020-12-10 08:19] LABS: Hematocrit (blood only) 28.5 % (37-47); Hemoglobin 9.3 g/dL (12.0-16.0); Mean Corpuscular Hemoglobin 32.2 pg (25-34); Mean Corpuscular Hgb Conc 32.6 g/dL (32-36); Mean Corpuscular Volume 98.6 fL (80-100); Mean Platelet Volume 12.2 fL (7.4-10.4); Nucleated RBC # (auto) 0.08 K/uL (0-0); Nucleated RBC % (auto) 0.5 %; Platelet Count 55 K/uL (130-400); RDW Coefficient of Variation 19.1 % (11.5-14.5); RDW Standard Deviation 66.3 fL (36.4-46.3); Red Blood Count 2.89 M/uL (4.2-5.4); White Blood Count 14.75 K/uL (4.8-10.8)
[2020-12-10 08:43] LABS: ALC (manual) 0.52 K/uL (1.2-3.4); ANC (manual) 13.45 K/uL (1.4-6.5); Anisocytosis Present; Dohle Bodies 2+; Howell-Jolly Bodies 1+; Lymphocytes # (manual) 0.52 K/uL (1.2-3.4); Lymphocytes % (manual) 3.5 %; Monocytes # (manual) 0.78 K/uL (0.11-0.59); Monocytes % (manual) 5.3 %; Neutrophils # (manual) 13.45 K/uL (1.4-6.5); Neutrophils % (manual) 91.2 %; Toxic Granulation 2+
[2020-12-10 09:02] LABS: Alanine Aminotransferase < 6 U/L (12-78); Albumin Globulin Ratio 0.8 (0.9-2); Albumin Level 2.1 gm/dl (3.4-5.0); Alkaline Phosphatase 173 U/L (45-117); Aspartate Aminotransferase 24 U/L (15-37); BUN Creatinine Ratio 25.7 (10-20); Bilirubin,Total 1.1 mg/dl (0.2-1); Blood Urea Nitrogen 14 mg/dl (7-18); Calcium 7.5 mg/dl (8.5-10.1); Carbon Dioxide 25 mmol/L (21-32); Chloride 114 mmol/L (98-107); Creatinine Clr Calc Pharmacy 67.9 ml/min; Est GFR (African American) 100.5 ml/min; Est GFR (Non-African American) 86.7 ml/min; Globulin 2.6 gm/dl (2.5-4.0); Glucose 98 mg/dl (70-99); Magnesium 1.9 mg/dl (1.8-2.4); Potassium 3.5 mmol/L (3.5-5.1); Sodium 145 mmol/L (136-145); Total Protein 4.7 gm/dl (6.4-8.2)
[2020-12-10] MEDS: POTASSIUM CHLORIDE / WTR 10 MEQ/100 ML PLCT IV SCH ×2 (09:39→10:20)
[2020-12-10] MEDS: TIMOLOL MALEATE 0.5% OP SOLN 5 ML BTL OPL SCH (09:40)
[2020-12-10] MEDS: DORZOLAMIDE HCL 2% OPH SOLN 10 ML BTL OPL SCH ×2 (09:43→22:57)
[2020-12-10] MEDS: NSS + 20MEQ KCL 20 MEQ/1,000 ML BAG IV SCH ×2 (09:56→20:06)
[2020-12-10] MEDS ORDERED: MoRPHine SULFATE 4 MG/ML 1 ML CARP\\VIAL IV PRN ×2 (10:03)
[2020-12-10] MEDS: cefTRIAXone SODIUM 1,000 MG in DEXTROSE 5% 50 ML IV SCH (11:07)
[2020-12-10] MEDS: metroNIDAZOLE 500 MG/100 ML BAG IV SCH ×2 (11:09→20:07)
[2020-12-10] MEDS ORDERED: ACETAMINOPHEN 1000 MG/100 ML IV IV PRN ×2 (12:58→14:45)
--- NOTE | 2020-12-10 13:17 | Communication Note ---
Date of Service: December 10, 2020 By CMS guidelines, a determination that the admission or continued stay is not medically necessary has been made by a member of the UR committee and a physi didi for this hospital stay, therefore a Code 44 will be completed and the Inpatient admission will be changed to outpatient.
--- NOTE | 2020-12-10 13:19 | Discharge Summary ---
Date of Service December 10, 2020 Admission HPI Per Admitting Provider This is an 85-year-old female with past medical history of colon cancer, metastatic to the liver that presents today with abdominal pain. Patient is somewhat limited historian but the daughter is at bedside. Patient was initially diagnosed with colon cancer presenting with nausea vomiting on 08/13. Patient had a rectal stent placed by Dr. Ceja on 08/26. She is since been receiving chemotherapy, and she did have a hospitalization on for abdominal pain. Patient apparently was doing well with chemotherapy, was following with Dr. Nava. Patient had sudden onset of abdominal pain over the past 1-2 days has been getting worse. Pain is mostly in the left lower quadrant and has a crampy nature to it. She has been having some liquid stool but has very little appetite. Daughter became concerned and the patient was brought in for further evaluation. Patient has CT scan of the abdomen and pelvis which showed free air, concerning for perforated viscus. No perforation was seen but is assumed that it would be the area of the rectosigmoid mass/stent. In addition, patient's labs were normal with an elevated white count, some anemia which is new, as well as a platelet count of 48. Her potassium is also very low at 2.4. I did discuss briefly with the daughter, was also present for conversation between family and Dr. Grier, her surgeon. At this time, is felt that surgery would be a significant risk in setting of the patient's comorbidities including thrombocytopenia. Patient is now being admitted for symptomatic management and possible transition to hospice. Principal Diagnosis colon cancer with perforation Discharge Exam no distress. abd surprisingly soft Discharge Data Allergies Allergy/AdvReac Type Severity Reaction Status Date / Time amoxicillin Allergy Unknown Unknown Verified 12/09/20 17:52 brimonidine Allergy Unknown Unknown Verified 12/09/20 17:52 sulfamethizole Allergy Unknown Unknown Verified 12/09/20 17:52 Consultations 12/09/20 17:24 ED Decision to Admit Stat 12/09/20 21:20 Consult Palliative Care Routine Ordered Studies 12/09/20 14:45 CT abd pelvis IV con only Stat Hospital Course (1) Metastatic adenocarcinoma: (2) Colon perforation: for inpatient hospice (3) Anemia: (4) Thrombocytopenia: Total Time Total Time Spent Total Time Spent (In Minutes): <30 Discharge Plan Discharge Items Patient Disposition: Hospice - Medical Facility Reason For Visit: ABD FREE AIR, COLON CA Discharge Diagnosis: perforated colon, peritonitis, colon CA Activity: Resume your previous activity Non-emergency contact: Primary Care Provider Call non-emergency contact if: your symptoms worsen Follow-up/Referrals: Maximo Madden [Primary Care Provider] - Diet: Nothing by Mouth Addtl Attending Provider Instructions: as per admit orders Pending Studies at Discharge: No Stand-Alone Forms: My [facility] Skilled Items Patient informed of condition?: Yes DNR: Yes Discharge Level of Care: Other Communicable Disease: No Discharge Prognosis: Deteriorating Lines: Peripheral IV Urinary Catheter: Yes Medications and DC Order Prescriptions: Discontinued timolol maleate 0.5 % drops 1 drp OPL DAILY RF: 0 dorzolamide 2 % drops 1 drp OPL TID RF: 0 Durezol 0.05 % drops 1 drp OPR 3XWK RF: 0 Lumigan 0.01 % drops 1 drp OPL HS RF: 0 Rhopressa 0.02 % Drops 1 drp OPL PM RF: 0 cholecalciferol (vitamin D3) [Vitamin D3] 50 mcg (2,000 unit) Capsule 50 mcg PO DAILY RF: 0 Artificial Tears (PF) Dropperette 1 drp OPHTHALMIC (EYE) DIRECTED PRN (Reason: Dry Eyes) RF: 0 polyethylene glycol 3350 [Miralax] 17 gram/dose powder 17 g PO BID PRN (Reason: Constipation) RF: 0 ondansetron HCl 8 mg tablet 8 mg PO Q8 PRN (Reason: Nausea) RF: 0 potassium chloride 20 mEq/15 mL liquid 20 meq PO DAILY RF: 0 Neulasta 6 mg/0.6 mL Syringe 0 mg SUBCUT .[id number] UD RF: 0 Admission Data Admit Date/Time: 12/09/20 18:29 Attending Provider: Blanco Callaway Admit Provider: Bruno Tejeda Primary Care Provider: Maximo Madden Other Providers: Bruno Tejeda ; Lola Koroma Coding Level of Care Code 90113 OBS Care - Discharge Diagnoses Metastatic adenocarcinoma C79.9 Colon perforation K63.1 Anemia D64.9 Thrombocytopenia D69.6
--- NOTE | 2020-12-10 15:23 | Hospitalist Progress Note ---
Date of Service December 10, 2020 Assessment & Plan (1) Perforated abdominal viscus: Patient is an 85 year old female with PMHx metastatic colon cancer involving the rectosigmoid s/p colonic stent placed in August 2020 who presented with worsening abdominal pain, found to have pneumoperitoneum on abdominal CT. Plans were discussed with General Surgery and the the patient agreed that surgical intervention at this time would not be in her wishes and would prefer a more medical management and palliative approach. Bowel Perforation -Discontinue Cefepime -Start CTX and Flagyl -NPO and IVF NSS+20meq KCl 100ml/hr -No plans for surgery -Pursuing a palliative approach with low threshold to discontinue antibiotics and IVF if it would prolong suffering over allowing current comfort. -Palliative care consulted and following. -Pain control with Morphine 2mg, 4mg, 6mg q3h PRN -Tylenol PRN Fever or pain -Zofran PRN nausea Dispo: Med/Surg FEN: Strict NPO DVT: Deferred at this time Code: DNR/DNI Admission and Anticipated Discharge Date Admission Date: December 09, 2020 Supervising Physician Co-Signing Physician Notes I personally examined the patient and verified all steele points of history and exam, discussed case, and agree with decision making with Dr Quezada. Belly pain is okay right now. Does note that it hurts at times, but thus far seems to be under good control. Very yasir discussion with patient on situation and prognosis as well as presumptive timeline. Answered all questions to the best of my ability and to patient/daughter's satisfaction. Vitals noted, in general she is awake and alert pleasant no distress. HEENT normocephalic atraumatic mucous membranes moist. Breathing unlabored no accessory muscle use good effort. Abdomen surprisingly soft, seems to be mild diffuse tendernessalthough far better than expected. Neuro shows no focal deficits. Colon perforation with sepsis/peritonitis present on admission and related to progress to colon cancerdid not want surgical intervention, comfort is the goal. Right now appears to be quite comfortablecontinue as needed pain meds, although discussed with patient she may quickly reached the point where we need to do IV via MACHINE LEAD BURNER/drip depending on her needs. Continue antibiotics for now since it seems to be affecting comfort and prolonging her. At which she is able to communicate well with family. (Please disregard discharge summary, I had been erroneously informed that she was set up for inpatient hospice, paperwork was done, but then this was found to be not the case) Subjective Patient evaluated at the bedside. Patient's daughter also present. Patient hard of hearing, but arousable. She was very aware of her current situation and agreeable that at this time she would not want drastic intervention. She is agreeable at this time to continue antibiotics and fluids and pain control. Her daughter agrees at this time. She is attempting to contact family and friends to visit. Currently patient denying any chest pain, SOB. Noting slight abdominal discomfort with movement. She notes that she is tired and hoping to sleep some more. Review of Systems Review of Systems: All systems reviewed & are unremarkable except as noted in Subjective Physical Exam 2 Constitutional: + frail appearing and cooperative Eyes: PERRL, conjunctivae normal, anicteric sclerae Respiratory: normal respiratory effort, lungs clear to auscultation Cardiovascular: RRR, no murmur, no edema Gastrointestinal (Abdomen): Inspection/Auscultation: abdomen normal to inspection and + hypoactive bowel sounds; abdomen not distended Percussion/Palpation: + abdomen tender and abdomen soft Psychiatric: Orientation: alert and oriented x 3 Results & Data Results & Data ([facility]) Vital Signs (Past 12 Hours) Vital Signs Temp Pulse Resp BP BP Pulse Ox 12/10/20 13:26 36.9 C 73 16 131/77 145/87 H 94 12/10/20 11:23 36.9 C 73 16 131/77 94 12/10/20 06:41 36.7 C 78 18 145/87 H 94 Resident Activity Tracking Resident Involvement: Resident Care Provided Care Provided: Adult Hospital Medicine
--- NOTE | 2020-12-10 15:39 | Palliative Care Consultation ---
Date of Consultation December 10, 2020 Assessment & Plan (1) Abdominal pain: Currently controlled. Continue prn morphine. Abdominal location: unspecified location Qualified Code(s): R10.9 - Unspecified abdominal pain (2) Palliative care encounter: I talked with Mrs. Pettit and her son in law at bedside. Plan was initially for her to be admitted on [facility] hospice care and she and her family are in agreement that they want to focus on a comfort oriented approach to her care. They would like to continue antibiotics for the time being as she has family traveling from out of state to be with her. Fortunately, her pain is currently well controlled which would not make her eligible for [facility] level of care. Taylor has said that she would like to be able to go home until her dying time. She also notes that she took care of her at home on hospice about three years ago and says that he didn't have as much going on as she does. At this time she feels more comfortable in the hospital. I spoke with Juany on the phone to review plan of care. She will continue antibiotics and IVF for now and we will treat her pain with IV morphine as needed. When family has arrived, focus of care will shift to comfort only. Juany asked if she would be able to stay here until her dying time. We discussed taking a day by day approach at this time. If her symptoms are adequately controlled, we can explore discharge home with hospice, however, family feels that they would need additional support for her care. 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 Palliative care will follow. (3) Perforated abdominal viscus: (4) Metastatic adenocarcinoma: History of Present Illness Reason for Consultation: goals of care Requesting Physician: Dr. Lassiter Attending Physician: Blanco Callaway DO History of Present Illness 85 yo lady with history of colon cancer. She had a rectal stent placed in August of this year and has had chemotherapy. She presented to hospital with acute left lower quadrant abdominal pain. CT showed pneumoperitoneum consistent with perforation. She and her family, including her daughter Juany, who is co POA have discussed plan of care moving forward. After surgical evaluation, they have decided not to pursue surgical treatment. She is currently on IV antibiotics with morphine ordered as needed. She c/o of some mild abdominal pain but feels that it is currently controlled. We have been consulted to assist with plan of care. Allergies Allergy/AdvReac Type Severity Reaction Status Date / Time amoxicillin Allergy Unknown Unknown Verified 12/09/20 17:52 brimonidine Allergy Unknown Unknown Verified 12/09/20 17:52 sulfamethizole Allergy Unknown Unknown Verified 12/09/20 17:52 Patient History Medical History Abdominal pain Anemia Glaucoma Hypothermia Large bowel obstruction No pertinent past medical history Right bundle branch block Sepsis Surgical History H/O bladder repair surgery 1965 H/O excision of mass 1956 removed from breast H/O eye surgery R eye 2019 History of appendectomy History of removal of cyst ankle R cyst removed 1978 Hx of colonoscopy 2017 & 2020 S/P cholecystectomy 2000 Social History Smoking Status: Never smoker Hx Alcohol Use: No Hx Substance Use: No Preferred Language: Tongan Communication Ability: Effective Visual Impairment: Limited Hearing Ability: Normal Director Of Vital Statistics Required: No Beliefs That Will Affect Care: None marital status: / Current Living Situation: Family Current Living Situation Comment: lives with great grandson current occupational status: retired Feels Safe at Home: Yes Assistive Devices: Glasses, Hearing Aid - Bilateral and Walker Review of Systems Review of Systems: [place] Symptom Assessment Scale Pain 1/3 Dyspnea 0/3 Anxiety 2/3 Nausea 0/3 Drowsiness 0/3 Palliative Performance Score 30% Physical Exam Constitutional: + ill appearing Respiratory: normal respiratory effort; no labored breathing Musculoskeletal: Extremities: + muscle atrophy Skin: warm and dry Neurologic: awake; not confused Psychiatric: Orientation: alert and oriented x 3 Affect: + anxious affect Results & Data ([facility]) Vital Signs (Past 12 Hours) Vital Signs Temp Pulse Resp BP BP Pulse Ox 12/10/20 13:26 98.4 F 73 16 131/77 145/87 H 94 12/10/20 11:23 98.4 F 73 16 131/77 94 12/10/20 06:41 98.1 F 78 18 145/87 H 94 PG Care Time/CCT Total # of Minutes Spent Total Time Spent with Patient: Total time spent is greater than 50% in coordination of care (as documented) at patient's floor/unit and/or counseling patient: total time spent 70 minutes with more than 50% of time spent on goals of care, symptom management, hospice Coding Level of Care Code 75419 Inpt Consult Level 3 Diagnoses Abdominal pain R10.9 Abdominal location: unspecified location Palliative care encounter Z51.5 Perforated abdominal viscus R19.8 Metastatic adenocarcinoma C79.9
[2020-12-10] MEDS: MoRPHine SULFATE 2 MG/ML CARP IV PRN (18:21)
--- NOTE | 2020-12-10 18:21 | Billing Data ---
Date of Service December 10, 2020 Coding Level of Care Code 00079 Subseq Hosp Care Lvl 3 Comment disregard dc code.
[2020-12-10] MEDS ORDERED: DIFLUPREDNATE OPR SCH (22:30)
[2020-12-10] MEDS: BIMATOPROST 0.01% OP SOLN 2.5 ML BTL OPL SCH (22:56)
[2020-12-10] MEDS: NETARSUDIL OPL SCH (22:58)
[2020-12-11] MEDS: metroNIDAZOLE 500 MG/100 ML BAG IV SCH ×3 (03:10→17:12)
[2020-12-11] MEDS: NSS + 20MEQ KCL 20 MEQ/1,000 ML BAG IV SCH ×3 (05:43→23:25)
--- NOTE | 2020-12-11 07:09 | Hospitalist Progress Note ---
Date of Service December 11, 2020 Assessment & Plan (1) Perforated abdominal viscus: Patient is an 85 year old female with PMHx metastatic colon cancer involving the rectosigmoid s/p colonic stent placed in August 2020 who presented with worsening abdominal pain, found to have pneumoperitoneum on abdominal CT. Plans were discussed with General Surgery and the the patient agreed that surgical intervention at this time would not be in her wishes and would prefer a more medical management and palliative approach. Bowel Perforation -Discontinued Cefepime -Continue CTX and Flagyl -NPO and IVF NSS+20meq KCl 100ml/hr -No plans for surgery -Pursuing a palliative approach with low threshold to discontinue antibiotics and IVF if it would prolong suffering over allowing current comfort. -Palliative care consulted and following. -Pain control with Morphine 2mg, 4mg q3h PRN -Tylenol PRN Fever or pain -Zofran PRN nausea -Discussed with family and palliative medicine in regards to further transition to [employer]. -Tentatively planning to withdraw IVF and antibiotics in the AM -Low threshold to start morphine gtt should pain become worse and unable to be managed by IV morphine pushes. -Family agreeable and appreciative. Dispo: Med/Surg FEN: Strict NPO DVT: Deferred at this time Code: DNR/DNI Admission and Anticipated Discharge Date Admission Date: December 09, 2020 Supervising Physician Co-Signing Physician Notes I personally examined the patient and verified all steele points of history and exam, discussed case, and agree with decision making with Dr Quezada. Pain well controlled, has needed morphine some. Family present. No other new complaints. Vitals noted, in general she is awake and alert pleasant no distress. HEENT normocephalic atraumatic mucous membranes moist. Breathing unlabored no accessory muscle use good effort. Neuro shows no focal deficits. Colon perforation with sepsis/peritonitis present on admission and related to progress to colon cancerdid not want surgical intervention, comfort is the goal. Continue comfort care, continue IV morphine as needed. Continue current care otherwise. Subjective Patient evaluated at bedside. Several family members present at this time. Patient noting she is having slightly increased pain, though was abated with morphine 2mg IV pushes. Otherwise no complaints at this time. Review of Systems Review of Systems: All systems reviewed & are unremarkable except as noted in Subjective Physical Exam Constitutional: + frail appearing and cooperative Eyes: PERRL, conjunctivae normal, anicteric sclerae Respiratory: normal respiratory effort, lungs clear to auscultation Cardiovascular: RRR, no murmur, no edema Gastrointestinal (Abdomen): Inspection/Auscultation: abdomen normal to inspection and + hypoactive bowel sounds; abdomen not distended Percussion/Palpation: + abdomen tender and abdomen soft Psychiatric: Orientation: alert and oriented x 3 Results & Data Results & Data ([facility]) Vital Signs (Past 12 Hours) Vital Signs Temp Pulse Resp BP Pulse Ox 12/11/20 04:28 36.6 C 92 H 12 168/84 H 93 Resident Activity Tracking Resident Involvement: Resident Care Provided Care Provided: Adult Hospital Medicine
[2020-12-11] MEDS: cefTRIAXone SODIUM 1,000 MG in DEXTROSE 5% 50 ML IV SCH (07:40)
[2020-12-11] MEDS: TIMOLOL MALEATE 0.5% OP SOLN 5 ML BTL OPL SCH (07:40)
[2020-12-11] MEDS: DORZOLAMIDE HCL 2% OPH SOLN 10 ML BTL OPL SCH ×3 (07:40→23:25)
[2020-12-11] MEDS: MoRPHine SULFATE 2 MG/ML CARP IV PRN ×3 (08:58→21:00)
--- NOTE | 2020-12-11 10:57 | Palliative Care Progress Note ---
Date of Service December 11, 2020 Assessment & Plan (1) Abdominal pain: Continue prn morphine. Pain control is the number one concern of family. However, they are hoping that she will be able to be awake and able to enjoy time with family when possible. We did discuss that pain may increase, particularly after stopping antibiotics and reviewed options for pain relief. We also discussed that she is likely to be more sleepy as time goes on, regardless of medications. Will stop 6mg morphine order for now as 2 mg has been very effective for her pain. (2) Palliative care encounter: I met with two of Taylor's daughters and two granddaughers, including Juany. We talked about what to expect. We talked about her remaining in the hospital for now and continuing antibiotics and fluids as a bridge until all family has arrived and had time to visit with her. We also discussed transition to full comfort measures after family has all arrived which would include only the medications necessary for her symptom relief. This would include stopping IV fluids and family is comfortable with that. We talked about sips of water or using mouth swabs for her comfort if she expresses the desire for fluids. I also mentioned that it is possible that her condition could plateau and that we sometimes need to look at an additional plan for disposition. For now, we will take one day at a time. Palliative care will follow. (3) Perforated abdominal viscus: (4) Metastatic adenocarcinoma: Admission and Anticipated Discharge Date Admission Date: December 09, 2020 Subjective Initially sleeping but easily arousable and laughing with family. She did have prn morphine x one today. Review of Systems Review of Systems: [place] Symptom Assessment Scale Pain 1/3 Dyspnea 0/3 Anxiety 0/3 Nausea 0/3 Fatigue 2/3 Drowsiness 1/3 Palliative Performance Score 30% Physical Exam Constitutional: + ill appearing ENMT: Mouth: + dry oral mucous membranes Respiratory: normal respiratory effort; no labored breathing Psychiatric: Orientation: alert and oriented x 3 Genitourinary: incontinent of urine x 1 Results & Data ([facility]) Vital Signs (Past 12 Hours) Vital Signs Temp Pulse Resp BP Pulse Ox 12/11/20 07:28 97.3 F L 89 17 146/79 H 95 12/11/20 04:28 97.9 F 92 H 12 168/84 H 93 PG Care Time/CCT Total # of Minutes Spent Total Time Spent with Patient: Total time spent is greater than 50% in coordin ation of care (as documented) at patient's floor/unit and/or counseling patient: total time spent 45 minutes with more than 50% of time spent on symptom management, family education and support, goals of care Coding Level of Care Code 31299 Subseq Hosp Care Lvl 3 Diagnoses Abdominal pain R10.9 Abdominal location: unspecified location Palliative care encounter Z51.5 Perforated abdominal viscus R19.8 Metastatic adenocarcinoma C79.9 (1) Abdominal pain Abdominal location: unspecified location Qualified Code(s): R10.9 - Unspecified abdominal pain
[2020-12-11] MEDS: NETARSUDIL OPL SCH (17:13)
--- NOTE | 2020-12-11 19:55 | Billing Data ---
Date of Service December 11, 2020 Coding Level of Care Code 79781 Subseq Hosp Care Lvl 3
[2020-12-11] MEDS: BIMATOPROST 0.01% OP SOLN 2.5 ML BTL OPL SCH (23:25)
[2020-12-12] MEDS: metroNIDAZOLE 500 MG/100 ML BAG IV SCH (02:27)
[2020-12-12] MEDS: MoRPHine SULFATE 2 MG/ML CARP IV PRN (08:04)
[2020-12-12] MEDS: TIMOLOL MALEATE 0.5% OP SOLN 5 ML BTL OPL SCH (09:18)
[2020-12-12] MEDS: DORZOLAMIDE HCL 2% OPH SOLN 10 ML BTL OPL SCH (09:18)
[2020-12-12] MEDS ORDERED: ONDANSETRON INJ 2 MG/ML 2 ML VIAL IV PRN (09:48)
[2020-12-12] MEDS ORDERED: LORazepam 0.5 MG/1 ML VIAL IV PRN (09:48)
[2020-12-12] MEDS ORDERED: ONDANSETRON 4 MG OD TAB SL PRN (09:48)
[2020-12-12] MEDS ORDERED: LORazepam 0.5 MG TAB PO PRN (09:48)
[2020-12-12] MEDS ORDERED: MoRPHine SULFATE 5 MG/0.25 ML UDP PO PRN (09:48)
--- NOTE | 2020-12-12 09:51 | Hospitalist Progress Note ---
Date of Service December 12, 2020 Assessment & Plan (1) Perforated abdominal viscus: Patient is an 85 year old female with PMHx metastatic colon cancer involving the rectosigmoid s/p colonic stent placed in August 2020 who presented with worsening abdominal pain, found to have pneumoperitoneum on abdominal CT. Plans were discussed with General Surgery and the the patient agreed that surgical intervention at this time would not be in her wishes and would prefer a more medical management and palliative approach. Bowel Perforation: -Discontinued Cefepime, Ceftriaxone and Flagyl -Pursuing a palliative approach with low threshold to discontinue antibiotics and IVF if it would prolong suffering over allowing current comfort. -Palliative care consulted and following. -transitioned to comfort measures at this time, with intention to maintain comfort instead of further measures that will not effect amount of high quality time that the patient has remaining -Low threshold to start morphine gtt should pain become worse and unable to be managed by IV morphine pushes. -Family agreeable and appreciative Admission and Anticipated Discharge Date Admission Date: December 09, 2020 Supervising Physician Co-Signing Physician Notes I personally examined the patient and verified all steele points of history and exam, discussed case, and agree with decision making with Dr Welsh more sleepy than before. pain still able to be controlled but needing more pain meds than before. answered all family questions to the best of my ability Vitals noted,resting comfortably, no distress but appears a little more ashen. HEENT normocephalic atraumatic mucous membranes moist. Breathing unlabored no accessory muscle use good effort. Neuro shows no focal deficits. Colon perforation with sepsis/peritonitis present on admission and related to progress to colon cancerdid not want surgical intervention, comfort is the goal. Continue comfort care, continue IV morphine as needed. Continue current care otherwise. appears to be turning towards decline. anticipate progressive decline --> passing. goal will be to keep her comfortable/allow passing to be peaceful. empathy/support provided to family. Subjective Family at bedside, endorsed that over night she has continued to have worsening difficulty with transfers and transitioning and they re-inforced their desire to maintain her comfort at this time as they have been discussing that with what the family had previously been through in regards to end of life care, patient had expressed to them not wanting to have prolonged suffering for the sake of more quantity of time with limited quality. As a result of this they would like to proceed with comfort measures at this time. Review of Systems Review of Systems: All systems reviewed & are unremarkable except as noted in Subjective Physical Exam Constitutional: WD/WN, vitals as above + frail appearing, + disheveled and comfortable Eyes: PERRL, conjunctivae normal, anicteric sclerae Respiratory: normal respiratory effort, lungs clear to auscultation Auscult ation: no wheezes Cardiovascular: RRR, no murmur, no edema Skin: no rashes, warm and dry Results & Data Results & Data ([facility]) Vital Signs (Past 12 Hours) Vital Signs Temp Pulse Pulse Resp BP Pulse Ox 12/12/20 08:01 36.5 C 94 H 16 171/89 H 95 12/12/20 00:01 36.3 C L 92 H 18 155/81 H 94 Resident Activity Tracking Resident Involvement: Resident Care Provided Care Provided: Adult [place] [facility]
[2020-12-12] MEDS: cefTRIAXone SODIUM 1,000 MG in DEXTROSE 5% 50 ML IV SCH (10:20)
[2020-12-12] MEDS: NSS + 20MEQ KCL 20 MEQ/1,000 ML BAG IV SCH (10:29)
--- NOTE | 2020-12-12 13:27 | Palliative Care Progress Note ---
Date of Service December 12, 2020 Assessment & Plan (1) Abdominal pain: patient remains on comfort measures only. Patient has utilized three doses of IV Morphine over the past 24 hours. Today, she has furrowed brow, is tachypnic and wakens only to make non-sensical verbage. We discussed end of life and expected symptoms and presentation. Discussed scheduling the Morphine to provide better control overall, which Dennise was receptive to. Discussed how now that she is less able to ask for medications, we rely on assessment to know when to administer comfort medications: furrowed brow, breathing pattern changes, grimacing, or any other signs that she is uncomfortable. Will continue to have the IV PRN Morphine available as well. Patient renal function not a concern for opioid toxicity as her creatinine is 0.55. (2) Palliative care encounter: Juany and another daughter were at the beside. We confirmed continued plans of care for comfort measures. Patient has woken today, but far less interactive and does not have periods of lucidity this afternoon. All family members have visited that have wanted to see her in person. For now, we will take one day at a time, but anticipate patient has a few days of life remaining. Should patient remain with us on Tuesday, will readdress alternative discharge plans if necessary and if the patient is stable. Palliative care will follow. (3) Perforated abdominal viscus: (4) Metastatic adenocarcinoma: Admission and Anticipated Discharge Date Admission Date: December 09, 2020 Subjective Pt remains on [employer]. Pt has utilized three doses of Morphine over the past 24 hours Pt wakes but non sensical verbage only pt daughters at bedside See A/P for further details Review of Systems Review of Systems: [place] Symptom Assessment Scale Pain 1/3 Dyspnea 0/3 Anxiety 0/3 Nausea 0/3 Fatigue 2/3 Drowsiness 1/3 Palliative Performance Score 20% Physical Exam Constitutional: + ill appearing ENMT: Mouth: + dry oral mucous membranes Respiratory: + labored breathing, + uses accessory muscles, + cough and + tachypneic Cardiovascular: Rate/Rhythm: regular rate and regular rhythm Heart Sounds: normal S1 and normal S2 Extremities: normal capillary refill; no edema Musculoskeletal: Extremities: + muscle atrophy Neurologic: awake and + confused Psychiatric: Orientation: alert and oriented x 3 Affect: + anxious affect Results & Data ([facility]) Vital Signs (Past 12 Hours) Vital Signs Temp Pulse Resp BP Pulse Ox 12/12/20 08:01 36.5 C 94 H 16 171/89 H 95 PG Care Time/CCT Total # of Minutes Spent Total Time Spent with Patient: Total time spent is greater than 50% in coordination of care (as documented) at patient's floor/unit and/or counseling patient: 35 minutes with > 50% of that time spent assessing the patient, discussing goals of care, adjusting symptom management medications and collaborating with IDT Coding Level of Care Code 83220 Subseq Hosp Care Lvl 3 Diagnoses Abdominal pain R10.9 Abdominal location: unspecified location Palliative care encounter Z51.5 Perforated abdominal viscus R19.8 Metastatic adenocarcinoma C79.9 Time Spent (min) 35 (1) Abdominal pain Abdominal location: unspecified location Qualified Code(s): R10.9 - Unspecified abdominal pain
[2020-12-12] MEDS: MoRPHine SULFATE 2 MG/ML CARP IV SCH ×2 (15:19→21:52)
--- NOTE | 2020-12-12 18:37 | Billing Data ---
Date of Service December 12, 2020 Coding Level of Care Code 24242 Subseq Hosp Care Lvl 2
[2020-12-13] MEDS: MoRPHine SULFATE 2 MG/ML CARP IV SCH ×3 (06:07→22:13)
[2020-12-13] MEDS: HEPARIN 100 UNIT/ML 5ML FLUSH FLUSH PRN ×3 (06:07→22:14)
--- NOTE | 2020-12-13 10:31 | Hospitalist Progress Note ---
Date of Service December 13, 2020 Assessment & Plan (1) Perforated abdominal viscus: Patient is an 85-year-old female with PMHx. metastatic colon cancer involving the rectosigmoid s/p colonic stent placed in August 2020 who presented with worsening abdominal pain, found to have pneumoperitoneum on abdominal CT. Plans were discussed with General Surgery and the the patient agreed that surgical intervention at this time would not be in her wishes and would prefer a more medical management and palliative approach. Bowel Perforation: -Discontinued Cefepime, Ceftriaxone and Flagyl -Pursuing a palliative approach with low threshold to discontinue antibiotics and IVF if it would prolong suffering over allowing current comfort. -Palliative care consulted and following. -transitioned to comfort measures at this time, with intention to maintain comfort instead of further measures that will not effect amount of high quality time that the patient has remaining. -Low threshold to start morphine gtt should pain become worse and unable to be managed by IV morphine pushes. -Family agreeable and appreciative Code: DNR/DNI Diet: NPO DVT: Heparin Admission and Anticipated Discharge Date Admission Date: December 09, 2020 Supervising Physician Co-Signing Physician Notes I personally examined the patient and verified all tseele points of history and exam, discussed case, and agree with decision making with Dr Kidd Spending for more time sleeping, but overall still appears comfortable. Vitals noted,resting comfortably, no distress but appears a little more ashen. HEENT normocephalic atraumatic mucous membranes moist. Breathing unlabored no accessory muscle use good effort. Neuro shows no focal deficits. Colon perforation with sepsis/peritonitis present on admission and related to progress to colon cancerdid not want surgical intervention, comfort is the goal. Continue comfort care, continue IV morphine as needed. Appearing to be progressively declining. Subjective Daughter Anisa was in the room with her mother Taylor Pettit and had noted that her mother was sleeping comfortably over the last 24 hours. Daughters Marisol and Juany were coming in during the day. When I talked to Taylor Pettit she opened her eyes and said she was not in pain, then she went back to sleep. Review of Systems Review of Systems: Unobtainable due to cognitive status Physical Exam Constitutional: + ill appearing ENMT: external ear and nose normal, oropharynx normal Neck: normal visual inspection Respiratory: normal respiratory effort, lungs clear to auscultation Cardiovascular: RRR, no murmur, no edema Gastrointestinal (Abdomen): Inspection/Auscultation: + abdomen distended Percussion/Palpation: + abdomen tender Skin: no rashes, warm and dry Results & Data CBC Results Results Complete Blood Count Results: RBC 2.89 M/uL (4.2-5.4) L 12/10/20 WBC 14.75 K/uL (4.8-10.8) H 12/10/20 Hgb 9.3 g/dL (12.0-16.0) L 12/10/20 Hct 28.5 % (37-47) L 12/10/20 Plt Count 55 K/uL (130-400) L 12/10/20 Chemistry (BMP) Results BMP Results: Sodium 145 mmol/L (136-145) 12/10/20 Potassium 3.5 mmol/L (3.5-5.1) 12/10/20 Chloride 114 mmol/L (98-107) H 12/10/20 BUN 14 mg/dl (7-18) 12/10/20 Creatinine 0.55 mg/dl (0.6-1.2) L 12/10/20 Glucose 98 mg/dl (70-99) 12/10/20 Resident Activity Tracking Resident Involvement: Resident Care Provided Care Provided: Adult Hospital Medicine
[2020-12-13] MEDS: MoRPHine SULFATE 2 MG/ML CARP IV PRN ×2 (12:22→23:34)
--- NOTE | 2020-12-13 15:19 | Billing Data ---
Date of Service December 13, 2020 Coding Level of Care Code 18203 Subseq Hosp Care Lvl 2
[2020-12-13] MEDS: ATROPINE SULFATE 1% OP SOLN 5 ML BTL SL PRN (23:34)
[2020-12-14] MEDS: ATROPINE SULFATE 1% OP SOLN 5 ML BTL SL PRN ×2 (00:29→02:20)
[2020-12-14] MEDS: MoRPHine SULFATE 2 MG/ML CARP IV PRN (02:20)
[2020-12-14] MEDS ORDERED: MoRPHine SULFATE 2 MG/ML CARP IV PRN (02:29)
[2020-12-14] MEDS ORDERED: MoRPHine SULFATE 2 MG/ML CARP IV STA (02:31)
[2020-12-14] MEDS: HEPARIN 100 UNIT/ML 5ML FLUSH FLUSH PRN ×2 (03:51→06:16)
[2020-12-14] MEDS ORDERED: MoRPHine SULFATE 2 MG/ML CARP IV SCH (04:00)
--- NOTE | 2020-12-14 07:21 | Death Pronouncement Note ---
Date of Service December 14, 2020 Pronouncement Note Admission Date Admission Date: December 09, 2020 Nursing notified me that the patient was no longer breathing. The patient was evaluated, lying in bed with no chest rise. I listened to her chest for 1 minute, no heart sounds or breath sounds were heard. The patient had dependent pooling and was cool to the touch. Her pupils were fixed and dilated. She was pronounced at 7:14 this morning. The daughter was in the room and i informed her that she can spend as much time as she needs with her mother and we are here if she has any questions. Contributing Factors (1) Perforated abdominal viscus: Additional Data Attending physician: Blanco Callaway DO Resident Activity Tracking Resident Involvement: Resident Care Provided Care Provided: Adult [facility] Medicine CBC Results Results Complete Blood Count Results: RBC 2.89 M/uL (4.2-5.4) L 12/10/20 WBC 14.75 K/uL (4.8-10.8) H 12/10/20 Hgb 9.3 g/dL (12.0-16.0) L 12/10/20 Hct 28.5 % (37-47) L 12/10/20 Plt Count 55 K/uL (130-400) L 12/10/20 Chemistry (BMP) Results BMP Results: Sodium 145 mmol/L (136-145) 12/10/20 Potassium 3.5 mmol/L (3.5-5.1) 12/10/20 Chloride 114 mmol/L (98-107) H 12/10/20 BUN 14 mg/dl (7-18) 12/10/20 Creatinine 0.55 mg/dl (0.6-1.2) L 12/10/20 Glucose 98 mg/dl (70-99) 12/10/20
--- NOTE | 2020-12-14 16:15 | Discharge Summary ---
Date of Service December 14, 2020 Admission HPI Per Admitting Provider This is an 85-year-old female with past medical history of colon cancer, metastatic to the liver that presents today with abdominal pain. Patient is somewhat limited historian but the daughter is at bedside. Patient was initially diagnosed with colon cancer presenting with nausea vomiting on 08/13. Patient had a rectal stent placed by Dr. Ceja on 08/26. She is since been receiving chemotherapy, and she did have a hospitalization on for abdominal pain. Patient apparently was doing well with chemotherapy, was following with Dr. Nava. Patient had sudden onset of abdominal pain over the past 1-2 days has been getting worse. Pain is mostly in the left lower quadrant and has a crampy nature to it. She has been having some liquid stool but has very little appetite. Daughter became concerned and the patient was brought in for further evaluation. Patient has CT scan of the abdomen and pelvis which showed free air, concerning for perforated viscus. No perforation was seen but is assumed that it would be the area of the rectosigmoid mass/stent. In addition, patient's labs were normal with an elevated white count, some anemia which is new, as well as a platelet count of 48. Her potassium is also very low at 2.4. I did discuss briefly with the daughter, was also present for conversation between family and Dr. Grier, her surgeon. At this time, is felt that surgery would be a significant risk in setting of the patient's comorbidities including thrombocytopenia. Patient is now being admitted for symptomatic management and possible transition to hospice. Admission Exam Per Admitting Provider Constitutional: + cachectic and cooperative; no acute distress hard of hearing Neck: trachea midline, no thyromegaly Respiratory: normal respiratory effort Auscultation: lungs clear to auscultation bilaterally; no crackles, no rales, no rhonchi and no wheezes Cardiovascular: Rate/Rhythm: regular rate and regular rhythm Heart Sounds: normal S1, normal S2 and + murmur Gastrointestinal (Abdomen): Inspection/Auscultation: + abdomen distended Percussion/Palpation: + abdomen tender (b/l lower quad, much worse over L side. no r/g with light palpation) and abdomen soft; no guarding, abdomen not rigid and no hepatosplenomegaly Skin: no rashes, warm and dry Principal Diagnosis perforated bowel Discharge Exam - no pulses - no breath sounds, no chest rise - dependent pooling Discharge Data Allergies Allergy/AdvReac Type Severity Reaction Status Date / Time amoxicillin Allergy Unknown Unknown Verified 12/09/20 17:52 brimonidine Allergy Unknown Unknown Verified 12/09/20 17:52 sulfamethizole Allergy Unknown Unknown Verified 12/09/20 17:52 Consultations 12/09/20 17:24 ED Decision to Admit Stat 12/09/20 21:20 Consult Palliative Care Routine Ordered Studies 12/09/20 14:45 CT abd pelvis IV con only Stat Hospital Course (1) Perforated abdominal viscus: Patient is an 85-year-old female with PMHx. metastatic colon cancer involving the rectosigmoid s/p colonic stent placed in August 2020 who presented with worsening abdominal pain, found to have pneumoperitoneum on abdominal CT. Plans were discussed with General Surgery and the the patient agreed that surgical intervention at this time would not be in her wishes and would prefer a more medical management and palliative approach. Bowel Perforation: -Discontinued antibiotics -Palliative care consulted and followed -transitioned to comfort measures -Family agreeable and appreciative -patient pronounced at 07:14 AM Total Time Total Time Spent Total Time Spent (In Minutes): not seen, passed prior to my seeing her Discharge Plan Discharge Items Patient Disposition: Discharge Diagnosis: perforated colon, peritonitis, colon CA Addtl Attending Provider Instructions: as per admit orders Supervising Physician Co-Signing Physician Notes case d/w Dr Kidd Resident Activity Tracking Resident Involvement: Resident Care Provided Care Provided: Adult [facility] CBC Results Results Complete Blood Count Results: RBC 2.89 M/uL (4.2-5.4) L 12/10/20 WBC 14.75 K/uL (4.8-10.8) H 12/10/20 Hgb 9.3 g/dL (12.0-16.0) L 12/10/20 Hct 28.5 % (37-47) L 12/10/20 Plt Count 55 K/uL (130-400) L 12/10/20 Chemistry (BMP) Results BMP Results: Sodium 145 mmol/L (136-145) 12/10/20 Potassium 3.5 mmol/L (3.5-5.1) 12/10/20 Chloride 114 mmol/L (98-107) H 12/10/20 BUN 14 mg/dl (7-18) 12/10/20 Creatinine 0.55 mg/dl (0.6-1.2) L 12/10/20 Glucose 98 mg/dl (70-99) 12/10/20
--- NOTE | 2020-12-23 13:24 | Coding Query ---
CODING QUERY To promote full compliance with coding requirements relating to patient care, provider participation is requested in all cases of director camp uncertainty. Please assist us with the question(s) below: Coding Question(s): Sepsis is documented on progress notes but not on discharge summary. Please clarify below: ( ) Patient with Sepsis ( ) Sepsis Ruled Out ( x) Other Please Explain: perforated colon leading to peritonitis and sepsis Thank you Antonio Goodwin Principal Diagnosis: "that condition established after study, to be chiefly responsible for occasioning the admission of the patient to the hospital for care." Co-Existing Principal Diagnosis: "when two or more diagnoses equally meet the criteria for principal diagnosis as determined by the circumstances of admission, diagnostic work up, and/or therapy provided, and the Alphabetic Index, Tabular List, or another coding guideline does not provide sequencing direction, any one of the diagnoses may be sequenced first." "When the physician has documented what appears to be a current diagnosis in the body of the record, but has not included the diagnosis in the final diagnostic statement, the physician should be asked whether the diagnosis should be added." (Source [facility]oding [facility] 2 QTR90. p3-4) DAVID
== END 2020-12-14 09:11 | disposition expired | DRG 871 ==
LOC: ED 13:40 → 2N 18:29 → SUATTDRO 18:29 → 2N 20:52 → 3E 12-10 12:46 → UNDODISIN 12-10 13:28